=== PATIENT | female | born 1935 | race Caucasian/White ===

== ENCOUNTER 2017-10-11 15:56 | Inpatient (IN) | payer MEDICARE, OTHER, SELFPAY ==
[2017-10-11 16:21] VITALS: BP 129/67; PULSE 73; RESP 22; TEMP 37.3; O2SAT 94; BMI 28.3
--- NOTE | 2017-10-11 16:29 | XR_ITS ---
XR chest portable HISTORY: Cough and weakness ITS.REASON: SOA AND NON-PROD COUGH ORDERING PHYSICIAN: Juliano Judd MD PATIENT AGE: 82 years COMPARISON: 02/19/2014 FINDINGS: Cardiac pacemaker device present. Study is obtained in a lordotic position. Pulmonary vessels are slightly prominent and there is mild cardiomegaly. There is consolidation in the left upper and left lower lobe consistent with pneumonia. Left upper lobe consolidation is somewhat rounded therefore, follow-up is recommended. No acute bony anomalies. IMPRESSION: Left upper and left lower lobe pneumonia. The left upper lobe pneumonia has a somewhat rounded configuration. Follow-up is recommended to exclude underlying mass. CT of the chest may be of further value
[2017-10-11 16:31] VITALS: PULSE 73; PULSE 85; O2SAT 95
--- NOTE | 2017-10-11 16:47 | HMH.EDGENADL ---
ED Disposition Clinical Impression: Dehydration Bilateral pneumonia Qualifiers: Pneumonia type: due to unspecified organism Lung location: unspecified part of lung Qualified Code(s): J18.9 - Pneumonia, unspecified organism Disposition: Admitted As Inpatient Condition on Discharge: Fair Time of Disposition: 20:08 - Critical Care Critical Care Time: No Attestation: On , the high probability of a clinically significant, sudden or life threatening deterioration of the following system(s) required my full and direct attention, intervention and personal management. The time I documented below is in addition to time spent performing reported procedures but includes the following listed in this critical care notation. Medical Decision Making - Medical Records Medical records reviewed: Yes: I reviewed the patient's medical records. Vital Signs: 10/11/17 16:21 10/11/17 16:31 Temperature 99.2 F Temperature Source Oral Pulse Rate 73 Pulse Rate [Right Brachial] 73 Respiratory Rate 22 Blood Pressure [Right Arm] 129/67 Blood Pressure Mean [Right Arm] 87 Blood Pressure Source [Right Arm] Automatic Cuff Blood Pressure Position [Right Arm] Sitting 02 Sat by Pulse Oximetry 94 L 95 Oxygen Delivery Method Nasal Cannula Nasal Cannula Oxygen Flow Rate (LPM) 4 4 - Lab Data Lab results reviewed: Yes: I reviewed the patient's lab results. Lab Results 10/11/17 16:40: WBC 8.0, RBC 4.17 L, Hgb 12.5, Hct 38.3, MCV 91.9, MCH 30.0, MCHC 32.7, RDW 13.3, Plt Count 129 L, MPV 8.7, Neut % (Auto) 78.8, Lymph % (Auto) 11.8, Price % (Auto) 8.8, Eos % (Auto) 0.3, Baso % (Auto) 0.3, Neut # (Auto) 6.3, Lymph # (Auto) 0.9, Price # (Auto) 0.7, Eos # (Auto) 0.0, Baso # (Auto) 0.0 10/11/17 16:40: Sodium 140, Potassium 3.7, Chloride 102, Carbon Dioxide 26, Anion Gap 15.7 H, BUN 25 H, Creatinine 1.52 H, Estimated Creat Clear 33, Estimated GFR 33 L, Est GFR ( Amer) 40 L, Glucose 157 H, Calcium 8.7, Total Bilirubin 0.7, AST 30, ALT 31, Alkaline Phosphatase 44 L, Total Protein 6.9, Albumin 3.1 L, Globulin 3.8 H, Albumin/Globulin Ratio 0.8 L 10/11/17 16:40: Lactic Acid 3.5 H 10/11/17 17:50: Group A Strep Rapid Negative Result diagrams: 10/11/17 16:40 10/11/17 16:40 Orders (Tests/Meds): ED MEDICATIONS Generic Name Dose Route Start Last Admin Trade Name Freq PRN Reason Stop Dose Admin Levofloxacin/Dextrose 500 mg in 100 mls @ 100 mls/hr 10/11/17 19:59 Levaquin 500mg/100ml Premix IV 10/11/17 20:58 PREOP ONE Protocol Discontinued Medications Generic Name Dose Route Start Last Admin Trade Name Freq PRN Reason Stop Dose Admin Albuterol/Ipratropium 3 ml 10/11/17 16:28 10/11/17 16:29 Duoneb 3ml Neb IH 10/11/17 16:29 3 ml ONCE ONE Administration Aztreonam 1 gm/ Sodium 50 mls @ 100 mls/hr 10/11/17 19:58 Chloride IV 10/11/17 19:59 ONCE ONE Protocol ORDERS Category Date Time Status Chest XR -- portable [XR chest portable] Stat Exams 10/11/17 16:29 Taken Blood Culture Stat Micro 10/11/17 16:40 Received Sputum Culture & Gram Stain Stat Micro 10/11/17 16:45 Results Strep Screen Confirmation Stat Micro 10/11/17 17:50 Received - Radiology Data #1 Image(s): Chest Image Reviewed: Yes I reviewed the patient's radiology image Preliminary Findings: Abnormal (with bilateral infiltrates) - Ted Inquiry Pt receiving controlled substance: No Ted was queried for this patient: No General Adult HPI - General Chief complaint: Nausea/Vomiting/Diarrhea Stated complaint: Fever,SOA, Vomiting Time Seen by Provider: 10/11/17 16:47 Mode of Arrival: Wheelchair Limitations: No Limitations Description of Symptoms (Recalled from ER Triage Doc. by RN): Pt c/o SOA, N/V/D - History of Present Illness HPI narrative: Pt comes to the ED with complaints of fever, SOA, Vomiting and trouble breathing with severe cough since . Has been to Dr. Graves's office twi
--- NOTE | 2017-10-11 16:53 | ED_ITS ---
ED Disposition Clinical Impression: Dehydration Bilateral pneumonia Qualifiers: Pneumonia type: due to unspecified organism Lung location: unspecified part of lung Qualified Code(s): J18.9 - Pneumonia, unspecified organism Disposition: Admitted As Inpatient Condition on Discharge: Fair Time of Disposition: 20:08 - Critical Care Critical Care Time: No Attestation: On , the high probability of a clinically significant, sudden or life threatening deterioration of the following system(s) required my full and direct attention, intervention and personal management. The time I documented below is in addition to time spent performing reported procedures but includes the following listed in this critical care notation. Medical Decision Making - Medical Records Medical records reviewed: Yes: I reviewed the patient's medical records. Vital Signs: 10/11/17 16:21 10/11/17 16:31 Temperature 99.2 F Temperature Source Oral Pulse Rate 73 Pulse Rate [Right Brachial] 73 Respiratory Rate 22 Blood Pressure [Right Arm] 129/67 Blood Pressure Mean [Right Arm] 87 Blood Pressure Source [Right Arm] Automatic Cuff Blood Pressure Position [Right Arm] Sitting 02 Sat by Pulse Oximetry 94 L 95 Oxygen Delivery Method Nasal Cannula Nasal Cannula Oxygen Flow Rate (LPM) 4 4 - Lab Data Lab results reviewed: Yes: I reviewed the patient's lab results. Lab Results 10/11/17 16:40: WBC 8.0, RBC 4.17 L, Hgb 12.5, Hct 38.3, MCV 91.9, MCH 30.0, MCHC 32.7, RDW 13.3, Plt Count 129 L, MPV 8.7, Neut % (Auto) 78.8, Lymph % (Auto ) 11.8, [place] % (Auto) 8.8, Eos % (Auto) 0.3, Baso % (Auto) 0.3, Neut # (Auto) 6.3, Lymph # (Auto) 0.9, [place] # (Auto) 0.7, Eos # (Auto) 0.0, Baso # (Auto) 0.0 10/11/17 16:40: Sodium 140, Potassium 3.7, Chloride 102, Carbon Dioxide 26, Anion Gap 15.7 H, BUN 25 H, Creatinine 1.52 H, Estimated Creat Clear 33, Estimated GFR 33 L, Est GFR ( Amer) 40 L, Glucose 157 H, Calcium 8.7, Total Bilirubin 0.7, AST 30, ALT 31, Alkaline Phosphatase 44 L, Total Protein 6.9, Albumin 3.1 L, Globulin 3.8 H, Albumin/Globulin Ratio 0.8 L 10/11/17 16:40: Lactic Acid 3.5 H 10/11/17 17:50: Group A Strep Rapid Negative Result diagrams: 10/11/17 16:40 10/11/17 16:40 Orders (Tests/Meds): ED MEDICATIONS Generic Name Dose Route Start Last Admin Trade Name Freq PRN Reason Stop Dose Admin Levofloxacin/Dextrose 500 mg in 100 mls @ 100 mls/hr 10/11/17 19:59 Levaquin 500mg/100ml Premix IV 10/11/17 20:58 PREOP ONE Protocol Discontinued Medications Generic Name Dose Route Start Last Admin Trade Name Freq PRN Reason Stop Dose Admin Albuterol/Ipratropium 3 ml 10/11/17 16:28 10/11/17 16:29 Duoneb 3ml Neb IH 10/11/17 16:29 3 ml ONCE ONE Administration Aztreonam 1 gm/ Sodium 50 mls @ 100 mls/hr 10/11/17 19:58 Chloride IV 10/11/17 19:59 ONCE ONE Protocol ORDERS Category Date Time Status Chest XR -- portable [XR chest portable] Stat Exams 10/11/17 16:29 Taken Blood Culture Stat Micro 10/11/17 16:40 Received Sputum Culture & Gram Stain Stat Micro 10/11/17 16:45 Results Strep Screen Confirmation Stat Micro 10/11/17 17:50 Received - Radiology Data #1 Image(s): Chest Image Jewels
[2017-10-11 17:13] LABS: Alanine Aminotransferase 31 U/L (12-78); Albumin Level 3.1 gm/dL (3.4-5.0); Albumin/Globulin Ratio 0.8 (1.1-1.8); Alkaline Phosphatase 44 U/L (46-116); Anion Gap 15.7 mEq/L (5-15); Aspartate Amino Transferase 30 U/L (15-37); Bilirubin,Total 0.7 mg/dL (0.2-1.0); Blood Urea Nitrogen 25 mg/dL (7-18); Calcium 8.7 mg/dL (8.5-10.1); Carbon Dioxide 26 mmol/L (21.0-32.0); Chloride 102 mmol/L (98-107); Creatinine Clearance Estimated 33 mL/min (0-300); Creatinine,Serum 1.52 mg/dL (0.55-1.02); Estimated Glomerular Filt Rate 33 ml/min (>60); GFR (African American) 40 ML/MIN (>60); Globulin 3.8 gm/dl (1.3-3.2); Glucose 157 mg/dL (74-106); Potassium 3.7 mmoL/L (3.5-5.1); Sodium 140 mmol/L (136-145); Total Protein,Serum 6.9 gm/dL (6.4-8.2)
[2017-10-11 17:25] LABS: Lactic Acid 3.5 mmol/L (0.4-2.0)
[2017-10-11 18:07] LABS: Strep Scrn Group A (Rapid) Negative (Negative)
[2017-10-11 18:14] LABS: Basophils % 0.3 % (0.1-2.0); Eosinophils % 0.3 % (0.1-12.0); Hematocrit 38.3 % (37.0-47.0); Hemoglobin 12.5 g/dL (12.2-16.2); Lymphocytes # 0.9 K/mm3 (0.7-4.5); Lymphocytes % 11.8 K/mm3 (10-50); Mean Corpuscular HGB Conc 32.7 g/dL (31.8-35.4); Mean Corpuscular Volume 91.9 fl (81-99); Mean Platelet Volume 8.7 fl (7.4-10.4); Monocytes # 0.7 K/mm3 (0.1-1.0); Monocytes % 8.8 % (1.7-9.3); Neutrophils # 6.3 K/mm3 (1.8-7.8); Neutrophils % 78.8 % (37.0-80.0); Platelet Count 129 K/mm3 (142-424); Red Blood Count 4.17 M/mm3 (4.20-5.40); Red Cell Distribution Width 13.3 % (11.5-17.5)
[2017-10-11 20:00] VITALS: O2SAT 93
[2017-10-11 20:25] VITALS: BP 137/89; PULSE 66; RESP 20; O2SAT 94
[2017-10-11 20:53] LABS: Reflex Lactic Add Lactic Reflex
[2017-10-11 21:17] VITALS: BP 140/81; PULSE 75; RESP 20; TEMP 36.8; O2SAT 91
[2017-10-11 21:30] VITALS: BMI 28.8
[2017-10-11 21:57] LABS: Lactic Acid Follow Up (RFLX 1) 2.5 (0.4-2.0)
[2017-10-11 21:58] LABS: Reflex Lactic (2 hrs) Add Lactic Reflex
[2017-10-12] VITALS (11 sets, daily range): BP systolic 96–125; BP diastolic 51–81; PULSE 65–90; RESP 20–30; TEMP 36.5–38.2; O2SAT 82–92
[2017-10-12 00:06] LABS: Lactic Acid Follow up (RFLX 2) 2.2 (0.4-2.0)
--- NOTE | 2017-10-12 03:50 | PC.NURSE ---
PT RESTING AT THIS TIME. SHE IS CURRENTLY ON 3L O2 NC. LUNGS WERE NOTED TO HAVE RHONCHI AND WHEEZING T/O. PT STATES THAT SHE HAS HAD BROWNISH YELLOW SPUTUM WITH SOME BLOOD. THIS HAS NOT BEEN OBSERVED. MEDICATIONS ADMINISTERED PER MAR. NO OTHER COCNERNS AT THIS TIME. WILL CONTINUE TO MONITOR.
[2017-10-12 06:54] LABS: Basophils % 0.3 % (0.1-2.0); Eosinophils % 0.1 % (0.1-12.0); Hematocrit 38.5 % (37.0-47.0); Hemoglobin 12.5 g/dL (12.2-16.2); Lymphocytes # 0.9 K/mm3 (0.7-4.5); Lymphocytes % 9.4 K/mm3 (10-50); Mean Corpuscular HGB Conc 32.5 g/dL (31.8-35.4); Mean Corpuscular Hemoglobin 29.8 pg (27.0-31.2); Mean Corpuscular Volume 91.7 fl (81-99); Mean Platelet Volume 8.7 fl (7.4-10.4); Monocytes # 0.6 K/mm3 (0.1-1.0); Monocytes % 6.2 % (1.7-9.3); Neutrophils # 7.9 K/mm3 (1.8-7.8); Platelet Count 111 K/mm3 (142-424); Red Cell Distribution Width 13.5 % (11.5-17.5); White Blood Count 9.4 K/mm3 (4.8-10.8)
[2017-10-12 07:02] LABS: Anion Gap 14.5 mEq/L (5-15); Blood Urea Nitrogen 22 mg/dL (7-18); Carbon Dioxide 25 mmol/L (21.0-32.0); Chloride 101 mmol/L (98-107); Creatinine Clearance Estimated 40 mL/min (0-300); Creatinine,Serum 1.28 mg/dL (0.55-1.02); Estimated Glomerular Filt Rate 40 ml/min (>60); GFR (African American) 48 ML/MIN (>60); Glucose 131 mg/dL (74-106); Potassium 3.5 mmoL/L (3.5-5.1); Sodium 137 mmol/L (136-145)
--- NOTE | 2017-10-12 07:25 | PC.NURSE ---
REPORT GIVEN TO Az MENENDEZ W/C
--- NOTE | 2017-10-12 07:32 | HMH.PHAVTE ---
[facility] Pharmacy VTE Monitoring - Patient Demographics Admission date: 10/11/17 Report Date: 10/12/17 Time: 07:32 Allergies/Adverse Reactions: Patient Allergies Azithromycin Allergy (Unknown, Uncoded 09/04/17 14:41) From Penicillin V Potassium Allergy (Unknown, Uncoded 09/04/17 14:41) Penicillin Allergy (Unknown, Uncoded 09/04/17 14:41) Height: 1.6 m Weight: 73.709 kg Patient Problems: Current Active Problems Bilateral pneumonia (Acute) Dehydration (Acute) - VTE Risk Labs: VTE Related Lab Results Hgb 12.5 g/dL (12.2-16.2) 10/12/17 06:15 Hct 38.5 % (37.0-47.0) 10/12/17 06:15 Plt Count 111 K/mm3 (142-424) L 10/12/17 06:15 BUN 22 mg/dL (7-18) H 10/12/17 06:15 Creatinine 1.28 mg/dL (0.55-1.02) H 10/12/17 06:15 Estimated Creat Clear 40 mL/min (0-300) 10/12/17 06:15 Was VTE Risk Assessment Performed: No VTE Risk Level: Low Risk Clinical Trial Participant: No - Prophylaxis VTE Prophylaxis Ordered?: Yes Types of VTE Prophylaxis: TEDS Knee High
--- NOTE | 2017-10-12 07:50 | PC.NURSE ---
REPORT HANDOFF TO Keaton CHERRY
--- NOTE | 2017-10-12 08:42 | HMH.HP ---
*Admission Date: 10/11/17 *Chief complaint: SOA, cough *History of present illness: Ms. Alan is an 82-year-old female who has been seen at [facility] numerous times in [place] for recurrent cough, congestion, and shortness of air. Most recent visit was on 10/09/17. She saw Nenita in the office with cough, fever, shortness of breath, and chest congestion. Her white blood cell count was normal. She was diagnosed with an acute URI and bronchitis. Oxygen was 95% on room air. She was started on Levaquin, a steroid Dosepak, Mucinex DM, Phenergan DM cough syrup, and she was given a shot of dexamethasone. She had nebulizers at home she had been using as well. Patient states she continued to get worse. Her shortness of breath increased and she presented to the emergency room. She was found to have a pneumonia and was admitted for further evaluation and treatment. [facility] History Medical History: Reports:: Atrial Fibrillation, Cerebrovascular Accident (right side), Hyperlipidemia, Hypertension Denies:: Cancer, Diabetes Mellitus Type 1, Diabetes Mellitus Type 2, MRSA Other Medical History: Reports: Arthritis, Hypothyroidism, Thyroid Disease Other Surgeries: Yes: Hysterectomy-Total, Pacemaker, Other (Cholecystectomy) Amputation: No Fractures: No - *Social History Educational Level: Completed High School Smoking Status: Never smoker Alcohol Intake: never Occupational Status: employed Housing: house - Psychiatric History Expresses thoughts of harming self/others: None Suicide Plan Description: No Plan *Family Hx:: Cancer, Heart Attack, Stroke Review of Systems - Constitutional Reports chills, Reports fever(s), Reports weakness - Eyes Denies blurry vision, Denies double vision - ENT Reports nasal congestion, Reports sore throat - *Cardiovascular Reports chest pain (tightness), Denies leg swelling - *Respiratory Reports chest congestion, Reports cough, Reports shortness of breath, Reports wheezing - *Gastrointestinal Reports loose stools, Reports nausea, Reports vomiting - *Genitourinary Denies difficulty urinating, Denies painful urination - *Musculoskeletal Reports back pain - *Neurologic Reports dizziness, Denies headache(s) Meds Home Medications Medication Instructions Recorded Confirmed Type Amlodipine Besylate [Norvasc 5mg 5 mg PO DAILY 10/11/17 10/12/17 History tablet] Levothyroxine Sodium 200 mcg PO DAILY 10/11/17 10/12/17 History [Levothyroxine 200mcg (0.2mg) Tab] Losartan/Hydrochlorothiazide 0.5 tab PO DAILY 10/11/17 10/12/17 History [Hyzaar 100-25 Tablet] levoFLOXacin [Levaquin 500mg 500 mg PO DAILY 10/11/17 10/12/17 History tab] Aspirin [Aspir-Low] 81 mg PO DAILY 10/12/17 10/12/17 History Carvedilol [Carvedilol 12.5mg Tab] 12.5 mg PO BID 10/12/17 10/12/17 History Cholecalciferol (Vitamin D3) 2,000 unit PO DAILY 10/12/17 10/12/17 History [Vitamin D3 1,000 Unit Tab] Simvastatin [Simvastatin] 20 mg PO HS 10/12/17 10/12/17 History methylPREDNISolone [Medrol] 4 mg PO DIRECTED 10/12/17 10/12/17 History Allergies Allergy/AdvReac Type Severity Reaction Status Date / Time Azithromycin Allergy Unknown Uncoded 09/04/17 14:41 From Penicillin V Potassium Allergy Unknown Uncoded 09/04/17 14:41 Penicillin Allergy Unknown Uncoded 09/04/17 14:41 Exam Vital signs and Labs for Last 24 Hours: Temp Pulse Resp BP Pulse Ox 98.5 F 87 22 125/81 90 L 10/12/17 07:30 10/12/17 07:30 10/12/17 07:30 10/12/17 07:30 10/12/17 07:30 Laboratory Results - last 24 hr 10/11/17 21:20: Lactic Acid Fup @ 4Hr 2.5 H 10/11/17 22:30: Lactic Acid Fup @ 2Hr 2.2 H 10/12/17 06:15: WBC 9.4, RBC 4.20, Hgb 12.5, Hct 38.5, MCV 91.7, MCH 29.8, MCHC 32.5, RDW 13.5, Plt Count 111 L, MPV 8.7, Neut % (Auto) 84.0 H, Lymph % (Auto) 9.4 L, [place] % (Auto) 6.2, Eos % (Auto) 0.1, Baso % (Auto) 0.3, Neut # (Auto) 7.9 H, Lymph # (Auto) 0.9, [place] # (Auto) 0.6, Eos # (Auto) 0.0, Baso # (Auto)
--- NOTE | 2017-10-12 08:46 | P.HP_ITS ---
*Admission Date: 10/11/17 *Chief complaint: SOA, cough *History of present illness: Ms. Alan is an 82-year-old female who has been seen at [facility] numerous times in [place] for recurrent cough, congestion, and shortness of air. Most recent visit was on 10/09/17. She saw Nenita in the office with cough, fever, shortness of breath, and chest congestion. Her white blood cell count was normal. She was diagnosed with an acute URI and bronchitis. Oxygen was 95% on room air. She was started on Levaquin, a steroid Dosepak, Mucinex DM, Phenergan DM cough syrup, and she was given a shot of dexamethasone. She had nebulizers at home she had been using as well. Patient states she continued to get worse. Her shortness of breath increased and she presented to the emergency room. She was found to have a pneumonia and was admitted for further evaluation and treatment. [facility] History Medical History: Reports:: Atrial Fibrillation, Cerebrovascular Accident (right side), Hyperlipidemia, Hypertension Denies:: Cancer, Diabetes Mellitus Type 1, Diabetes Mellitus Type 2, MRSA Other Medical History: Reports: Arthritis, Hypothyroidism, Thyroid Disease Other Surgeries: Yes: Hysterectomy-Total, Pacemaker, Other (Cholecystectomy) Amputation: No Fractures: No - *Social History Educational Level: Completed High School Smoking Status: Never smoker Alcohol Intake: never Occupational Status: employed Housing: house - Psychiatric History Expresses thoughts of harming self/others: None Suicide Plan Description: No Plan *Family Hx:: Cancer, Heart Attack, Stroke Review of Systems - Constitutional Reports chills, Reports fever(s), Reports weakness - Eyes Denies blurry vision, Denies double vision - ENT Reports nasal congestion, Reports sore throat - *Cardiovascular Reports chest pain (tightness), Denies leg swelling - *Respiratory Reports chest congestion, Reports cough, Reports shortness of breath, Reports wheezing - *Gastrointestinal Reports loose stools, Reports nausea, Reports vomiting - *Genitourinary Denies difficulty urinating, Denies painful urination - *Musculoskeletal Reports back pain - *Neurologic Reports dizziness, Denies headache(s) Meds Home Medications Medication Instructions Recorded Confirmed Type Amlodipine Besylate [Norvasc 5mg 5 mg PO DAILY 10/11/17 10/12/17 History tablet] Levothyroxine Sodium 200 mcg PO DAILY 10/11/17 10/12/17 History [Levothyroxine 200mcg (0.2mg) Tab] Losartan/Hydrochlorothiazide 0.5 tab PO DAILY 10/11/17 10/12/17 History [Hyzaar 100-25 Tablet] levoFLOXacin [Levaquin 500mg 500 mg PO DAILY 10/11/17 10/12/17 History tab] Aspirin [Aspir-Low] 81 mg PO DAILY 10/12/17 10/12/17 History Carvedilol [Carvedilol 12.5mg Tab] 12.5 mg PO BID 10/12/17 10/12/17 History Cholecalciferol (Vitamin D3) 2,000 unit PO DAILY 10/12/17 10/12/17 History [Vitamin D3 1,000 Unit Tab] Simvastatin [Simvastatin] 20 mg PO HS 10/12/17 10/12/17 History methylPREDNISolone [Medrol] 4 mg PO DIRECTED 10/12/17 10/12/17 History Allergies Allergy/AdvReac Type Severity Reaction Status Date / Time Azithromycin Allergy Unknown Uncoded 09/04/17 14:41 From Penicillin V Potassium Allergy Unknown Uncoded 09/04/17 14:41 Penicillin Allergy Unknown Uncoded 09/04/17 14:41 Exam Vital signs and Labs for Last 24 Hours: Temp Pulse Resp BP Pulse Ox
--- NOTE | 2017-10-12 09:00 | CT_ITS ---
CT chest wo con HISTORY: Cough , Weakness, abnormal chest x-ray, shortness of air ITS.REASON: abnormal CXR ORDERING PHYSICIAN: Abbie Graves MD PATIENT AGE: 82 years TECHNIQUE: Axial images obtained. Sagittal and coronal reformatted images are also generated and reviewed. CONTRAST: None COMPARISON: Radiograph of 10/11/2017 FINDINGS: There is cardiomegaly. Mildly enlarged lymph node is present in the mediastinum anterior to the right mainstem bronchus measuring 2.3 x 1.8 cm. Other smaller nodes are present in the mediastinum and bee. There is coronary artery calcification and artifact from the pacemaker. There is dense consolidation within the left upper lobe anteriorly, medially, and posteriorly with some sparing laterally with air bronchograms consistent with pneumonia. This was the area of interest as noted on the previous chest x-ray however this does not appear represent a mass. No effusions. Micronodular densities are present in the right upper lobe laterally with a tree-in-bud appearance which may be due to underlying bronchiolitis. There are atelectatic changes in the lung bases with some minimal infiltrate in the right lung base posteriorly. Upper abdominal images shows moderate stranding of the perinephric renal fat on both sides nonspecific. This is greater on the right and could be related to underlying inflammatory change. The right kidney is not included on the exam. There are degenerative changes in the thoracic spine. IMPRESSION: 1. Extensive consolidation in the left upper lobe consistent with pneumonia. No obvious mass lesion. 2. Patchy infiltrate in the right lung base. 3. Cardiomegaly with coronary artery disease and mild mediastinal adenopathy 4. Prominent stranding of the perinephric renal fat right greater than left
--- NOTE | 2017-10-12 17:34 | PC.NURSE ---
Patient continuing to have difficulty breathing. has a wet cough and o2 sats are in the low to mid 80's. Spoke with Lois with respiratory and requested for her to come re-evaluate her. Upon respiratory's assessment patient was deep suctioned and put on 50% venti mask. 02 sats increased to 90%. Spoke with Dr. Segundo, who is manager concrete for Dr. Graves, regarding patient's change in status. New orders were rec'd to discontinue IV fluids and give a one time dose of Lasix 40mg IV. Patient also rec'd a neb treatment from respiratory. Patient remains alert and oriented x3 and has no complaint of pain or discomfort. Patient also dislodged IV. New IV site placed in patient's right AC.
[2017-10-13] VITALS (17 sets, daily range): BP systolic 73–131; BP diastolic 42–80; PULSE 70–103; RESP 12–32; TEMP 36.8–37.6; O2SAT 75–98
--- NOTE | 2017-10-13 04:47 | XR_ITS ---
XR chest portable HISTORY: Pneumonia, cough ITS.REASON: low 02 sat ORDERING PHYSICIAN: bAbie Graves MD PATIENT AGE: 82 years COMPARISON: 10/11/2017 FINDINGS: Increasing consolidation is present in the left upper lobe. Opacification has developed in the right lower lung zone as well consistent with pneumonia and/or atelectatic change. There is cardiomegaly with bipolar pacer in place. IMPRESSION: Worsening left upper lobe pneumonia and interval development of right lower lobe atelectasis or infiltrate.
--- NOTE | 2017-10-13 05:17 | PC.NURSE ---
Approximately 0430, Rizwana Galdamez,SRNA in to do vitals, found pt with mask off and unresponsive, oxygen saturation 75%. Called Rapid Response Red with Dr Jay coming to floor. Hooked pt up to crash cart, manual bp, rectal temp, ekg, abg, bipap, cbc, cmp, bnp, cardiac enzymes, CXR. EKG - afib with premature ventricular or aberrantly conducted complexes, possible anterior infarct age undetermined ABG: Ph -7.08, C02 - 86, 02 - 107.2, HC03 - 25.5 Initial BP 77/43 Manual BP - 130/80 HR 103 Resp: 12 Rectal Temp - 99.6 F/c inserted Pt gradually began to respond by opening her eyes and then began answering questions, not correctly but speaking. Pt transitioned into baseline becoming alert to person, place but month voiced was October. Pt could tell me how many children, grandchildren, and great grandchildren she had as she had told me previously in earlier conversation. Pt appeared to recover. In earlier shift approximately 0130, in to check on pt - found her sitting on the side of the bed with her mask off lying on the bed. She voiced she had just taken it off. Replaced mask, oxygen saturation was 75% at that time. Discussed with the patient the importance of leaving the mask on, pt voiced then she would leave it on. Many checks on pt this shift with encouragement to participate in POC. Asked her if she wanted me to call her family, She replied no, I am fine. Phoned Dr Segundo at [phone] to report incident, order to continue monitoring and leave pt on bipap. Pt is currently resting in bed with bipap in place with saturation reading 97%. Pt placed on continuous pulse ox, will continue to monitor.
[2017-10-13 05:29] LABS: Basophils % 0.3 % (0.1-2.0); Eosinophils # 0.1 K/mm3 (0.0-0.4); Eosinophils % 0.9 % (0.1-12.0); Hematocrit 39.2 % (37.0-47.0); Hemoglobin 12.4 g/dL (12.2-16.2); Lymphocytes # 0.8 K/mm3 (0.7-4.5); Lymphocytes % 7.2 K/mm3 (10-50); Mean Corpuscular HGB Conc 31.7 g/dL (31.8-35.4); Mean Corpuscular Hemoglobin 29.7 pg (27.0-31.2); Mean Corpuscular Volume 93.6 fl (81-99); Mean Platelet Volume 8.8 fl (7.4-10.4); Monocytes # 0.6 K/mm3 (0.1-1.0); Monocytes % 4.9 % (1.7-9.3); Neutrophils # 9.9 K/mm3 (1.8-7.8); Neutrophils % 86.6 % (37.0-80.0); Platelet Count 109 K/mm3 (142-424); Red Blood Count 4.19 M/mm3 (4.20-5.40); Red Cell Distribution Width 13.3 % (11.5-17.5); White Blood Count 11.4 K/mm3 (4.8-10.8)
[2017-10-13 05:32] LABS: MANUAL DIFFERENTIAL MANUAL DIFFERENTIAL (MANUAL DIFF)
[2017-10-13 05:40] LABS: Alanine Aminotransferase 35 U/L (12-78); Albumin Level 2.7 gm/dL (3.4-5.0); Albumin/Globulin Ratio 0.7 (1.1-1.8); Alkaline Phosphatase 39 U/L (46-116); Anion Gap 12.8 mEq/L (5-15); Aspartate Amino Transferase 46 U/L (15-37); Bilirubin,Total 0.6 mg/dL (0.2-1.0); Blood Urea Nitrogen 25 mg/dL (7-18); Calcium 8.7 mg/dL (8.5-10.1); Carbon Dioxide 29 mmol/L (21.0-32.0); Chloride 98 mmol/L (98-107); Creatinine Clearance Estimated 36 mL/min (0-300); Creatinine,Serum 1.43 mg/dL (0.55-1.02); Estimated Glomerular Filt Rate 35 ml/min (>60); GFR (African American) 43 ML/MIN (>60); Globulin 4.1 gm/dl (1.3-3.2); Potassium 3.8 mmoL/L (3.5-5.1); Sodium 136 mmol/L (136-145); Total Protein,Serum 6.8 gm/dL (6.4-8.2)
[2017-10-13 05:44] LABS: Glucose 187 mg/dL (74-106)
--- NOTE | 2017-10-13 05:50 | PC.NURSE ---
Bipap settings 28/02, rate 22, FI02 - 80% per Rufina, RT
[2017-10-13 05:55] LABS: CKMB Relative Index 2.4 U/L (0-4.0); Creatine Kinase 238 U/L (26-192); Creatine Kinase MB 5.6 mg/ml (0.0-3.6)
--- NOTE | 2017-10-13 05:58 | PC.NURSE ---
UPON ENTRY INTO ROOM FOUND PATIENT UNRESPONSIVE TO STERNUM RUBS. ALERTED TO NURSE OUTSIDE OF ROOM FOR HELP. RAPID RESPONSE CALLED
[2017-10-13 06:12] LABS: Hypochromasia 1+; Lymphocytes % 9 % (10-50); Monocytes % 1 % (2-9); Neutrophils % 71 % (42-76); Platelet Estimate Slight Decrease; Rouleaux 1+; Total Cells Counted 100
[2017-10-13 06:13] LABS: Polychromasia 1+
--- NOTE | 2017-10-13 08:58 | HMH.ACPN2 ---
Internal Medicine - PN: Subj *Date: 10/13/17 *Time: 08:58 Interval history: Events of overnight reviewed. Patient became hypoxic and was placed on a Venti mask and given a dose of IV Lasix. She removed the mask several times and subsequently desaturated into the 70's. a rapid response was called and the ER physician saw patient. She was placed on BiPAP and had an ABG which revealed a pH of 7.08, pCO2 of 86, and pO2 107 while on 100% NRB. CXR showed worsening pneumonia. Patient stabilized after starting BiPAP. She will open her eyes and will respond to voice. Exam Vital signs and Labs for Last 24 Hours: Temp Pulse Resp BP Pulse Ox 99.6 F 72 22 113/71 93 L 10/13/17 04:30 10/13/17 07:51 10/13/17 07:51 10/13/17 07:51 10/13/17 07:51 Laboratory Results - last 24 hr 10/13/17 05:10: WBC 11.4 H, RBC 4.19 L, Hgb 12.4, Hct 39.2, MCV 93.6, MCH 29.7, MCHC 31.7 L, RDW 13.3, Plt Count 109 L, MPV 8.8, Neut % (Auto) 86.6 H, Lymph % (Auto) 7.2 L, [place] % (Auto) 4.9, Eos % (Auto) 0.9, Baso % (Auto) 0.3, Neut # (Auto) 9.9 H, Lymph # (Auto) 0.8, [place] # (Auto) 0.6, Eos # (Auto) 0.1, Baso # (Auto) 0.0, Total Counted 100, Neutrophils % (Manual) 71, Band Neutrophils % 19.0 H, Lymphocytes % (Manual) 9 L, Monocytes % (Manual) 1 L, Platelet Estimate Slight decrease, Polychromasia 1+, Hypochromasia 1+, Rouleaux 1+ 10/13/17 05:10: Sodium 136, Potassium 3.8, Chloride 98, Carbon Dioxide 29, Anion Gap 12.8, BUN 25 H, Creatinine 1.43 H, Estimated Creat Clear 36, Estimated GFR 35 L, Est GFR ( Amer) 43 L, Glucose 187 H D, Calcium 8.7, Total Bilirubin 0.6, AST 46 H D, ALT 35, Alkaline Phosphatase 39 L, Total Protein 6.8, Albumin 2.7 L, Globulin 4.1 H, Albumin/Globulin Ratio 0.7 L 10/13/17 05:10: Total Creatine Kinase 238 H, CK-MB (CK-2) 5.6 H, CK-MB (CK-2) Rel Index 2.4, Troponin I 0.20 H 10/13/17 05:10: B-Natriuretic Peptide 1290 H Vital Signs Temp Pulse Pulse Resp BP Pulse Ox 10/13/17 07:51 72 22 113/71 93 L 10/13/17 07:10 82 98 10/13/17 05:10 82 30 H 130/80 97 10/13/17 04:30 99.6 F 103 H 12 73/42 75 L 10/13/17 00:00 99.1 F 83 32 H 116/71 83 L 10/12/17 22:48 84 90 L 10/12/17 20:00 98.1 F 82 20 108/54 89 L 10/12/17 19:54 90 L 10/12/17 16:39 78 82 L 10/12/17 16:30 98.2 F 90 30 H 119/65 90 L 10/12/17 11:37 100.8 F H 65 20 96/51 90 L 10/12/17 11:27 72 Intake and Output 10/12/17 10/13/17 10/13/17 19:59 03:59 11:59 Intake Total 450 / 450 Output Total 1375 / 1375 Balance 450 / 450 -1375 / -1375 Intake: Intake, Oral Amount 450 / 450 Output: Output, Urine Amount 1375 / 1375 Other: Number of Unmeasured Voids 3 Number of Bowel Movements 1 I & O for Last 24 hours: Intake & Output 10/10/17 10/11/17 10/12/17 10/13/17 11:59 11:59 11:59 11:59 Intake Total 831 / 831 450 / 450 Output Total 350 / 350 1375 / 1375 Balance 481 / 481 -925 / -925 Weight 162 lb 8 oz - Constitutional somnolent (awakens to voice, on BiPAP now) - *Routine Respiratory Exam Present: crackles (bibasilar, overall pretty good air movement) - *Routine Cardiovascular Exam Present: RRR Assessment and Plan (1) Bilateral pneumonia Current visit: Yes Status: Acute Qualifiers: Pneumonia type: due to unspecified organism Lung location: unspecified part of lung Qualified Code(s): J18.9 - Pneumonia, unspecified organism Category: Medical Code(s): J18.9 - Pneumonia, unspecified organism (2) Hypercapnic respiratory failure Current visit: Yes Status: Acute Qualifiers: Chronicity: acute Qualified Code(s): J96.02 - Acute respiratory failure with hypercapnia Category: Medical Code(s): J96.92 - Respiratory failure, unspecified with hypercapnia (3) Dehydration Current visit: Yes Status: Acute Category: Medical Code(s): E86.0 - Dehydration (4) Hypothyroid Current visit: Yes Status: Acute
--- NOTE | 2017-10-13 09:02 | P.PN_ITS ---
Internal Medicine - PN: Subj *Date: 10/13/17 *Time: 08:58 Interval history: Events of overnight reviewed. Patient became hypoxic and was placed on a Venti mask and given a dose of IV Lasix. She removed the mask several times and subsequently desaturated into the 70's. a rapid response was called and the ER physician saw patient. She was placed on BiPAP and had an ABG which revealed a pH of 7.08, pCO2 of 86, and pO2 107 while on 100% NRB. CXR showed worsening pneumonia. Patient stabilized after starting BiPAP. She will open her eyes and will respond to voice. Exam Vital signs and Labs for Last 24 Hours: Temp Pulse Resp BP Pulse Ox 99.6 F 72 22 113/71 93 L 10/13/17 04:30 10/13/17 07:51 10/13/17 07:51 10/13/17 07:51 10/13/17 07:51 Laboratory Results - last 24 hr 10/13/17 05:10: WBC 11.4 H, RBC 4.19 L, Hgb 12.4, Hct 39.2, MCV 93.6, MCH 29.7, MCHC 31.7 L, RDW 13.3, Plt Count 109 L, MPV 8.8, Neut % (Auto) 86.6 H, Lymph % ( Auto) 7.2 L, [place] % (Auto) 4.9, Eos % (Auto) 0.9, Baso % (Auto) 0.3, Neut # ( Auto) 9.9 H, Lymph # (Auto) 0.8, [place] # (Auto) 0.6, Eos # (Auto) 0.1, Baso # ( Auto) 0.0, Total Counted 100, Neutrophils % (Manual) 71, Band Neutrophils % 19.0 H, Lymphocytes % (Manual) 9 L, Monocytes % (Manual) 1 L, Platelet Estimate Slight decrease, Polychromasia 1+, Hypochromasia 1+, Rouleaux 1+ 10/13/17 05:10: Sodium 136, Potassium 3.8, Chloride 98, Carbon Dioxide 29, Anion Gap 12.8, BUN 25 H, Creatinine 1.43 H, Estimated Creat Clear 36, Estimated GFR 35 L, Est GFR ( Amer) 43 L, Glucose 187 H D, Calcium 8.7, Total Bilirubin 0.6, AST 46 H D, ALT 35, Alkaline Phosphatase 39 L, Total Protein 6.8, Albumin 2.7 L, Globulin 4.1 H, Albumin/Globulin Ratio 0.7 L 10/13/17 05:10: Total Creatine Kinase 238 H, CK-MB (CK-2) 5.6 H, CK-MB (CK-2) Rel Index 2.4, Troponin I 0.20 H 10/13/17 05:10: B-Natriuretic Peptide 1290 H Vital Signs Temp Pulse Pulse Resp BP Pulse Ox 10/13/17 07:51 72 22 113/71 93 L 10/13/17 07:10 82 98 10/13/17 05:10 82 30 H 130/80 97 10/13/17 04:30 99.6 F 103 H 12 73/42 75 L 10/13/17 00:00 99.1 F 83 32 H 116/71 83 L 10/12/17 22:48 84 90 L 10/12/17 20:00 98.1 F 82 20 108/54 89 L 10/12/17 19:54 90 L 10/12/17 16:39 78 82 L 10/12/17 16:30 98.2 F 90 30 H 119/65 90 L 10/12/17 11:37 100.8 F H 65 20 96/51 90 L 10/12/17 11:27 72 Intake and Output 10/12/17 10/13/17 10/13/17 19:59 03:59 11:59 Intake Total 450 / 450 Output Total 1375 / 1375 Balance 450 / 450 -1375 / -1375 Intake: Intake, Oral Amount 450 / 450 Output: Output, Urine Amount 1375 / 1375 Other: Number of Unmeasured Voids 3 Number of Bowel Movements 1 I & O for Last 24 hours: Intake & Output 10/10/17 10/11/17 10/12/17 10/13/17 11:59 11:59 11:59 11:59 Intake Total 831 / 831 450 / 450 Output Total 350 / 350 1375 / 1375 Balance 481 / 481 -925 / -925 Weight 162 lb 8 oz - Constitutional somnolent (awakens to voice, on BiPAP now) - *Routine Respiratory Exam Present: crackles (bibasilar, overall pretty good air movement) - *Routine Cardiovascular Exam Present: RRR Assessment and Plan (1) Bilateral pneumonia Current visit: Yes Status: Acute Qualifiers:
[2017-10-13 16:14] LABS: ABG Base Excess -4.8 mmol/L (-2.4-2.3); ABG HCO3 25.2 mmhg (22.0-26.0); ABG Oxygen Saturation 97 % (90-100); ABG PO2 107.2 mmhg (80-100); ABG TCO2 27.8 mmhg (23-27)
[2017-10-13 16:15] LABS: Allen's Test Non Applicable; Oxygen 100% %; Source Left Radial
[2017-10-13 16:17] LABS: ABG PH 7.08 mmol/L (7.35-7.45)
[2017-10-13 16:22] LABS: ABG Base Excess 2.5 mmol/L (-2.4-2.3); ABG HCO3 26.9 mmhg (22.0-26.0); ABG Oxygen Saturation 96 % (90-100); ABG PCO2 42.6 mmhg (35.0-45.0); ABG PH 7.42 mmol/L (7.35-7.45); ABG PO2 73.5 mmhg (80-100); ABG TCO2 28.3 mmhg (23-27); Allen's Test Acceptable; Oxygen 50 %; PEEP 14/6; Source Right Radial; Vent Rate 22
[2017-10-13 17:50] LABS: ABG HCO3 23.3 mmhg (22.0-26.0); ABG Oxygen Saturation 96 % (90-100); ABG PCO2 35.8 mmhg (35.0-45.0); ABG PH 7.43 mmol/L (7.35-7.45); ABG PO2 80.8 mmhg (80-100); ABG TCO2 24.4 mmhg (23-27)
[2017-10-13 17:51] LABS: Allen's Test Acceptable; Oxygen 50% %; PEEP 14/6; Pressure Support 8; Source Right Radial; Vent Rate 22
[2017-10-14] VITALS (27 sets, daily range): BP systolic 110–160; BP diastolic 61–81; PULSE 72–110; RESP 16–31; TEMP 36.4–37.3; O2SAT 90–98
--- NOTE | 2017-10-14 03:16 | PC.NURSE ---
pt has rested intervals this shift, pt is A&O to person and time but unaware of place, pt remains on BiPap, O2 sats dropped to low 80s, respiratory was notified and BiPap settings were adjusted, since the adjustment O2 sats have remained at 90 or above, scattered wheezing and rhonchi noted throughout lung oreilly, bowel sounds are active x4, wells is anchored and draining clear taina urine, vss, no acute distress noted at this time, call light in reach, safety measures in place, will continue to monitor.
[2017-10-14 07:18] LABS: Basophils % 0.2 % (0.1-2.0); Eosinophils % 0.1 % (0.1-12.0); Hemoglobin 12.4 g/dL (12.2-16.2); Lymphocytes # 0.5 K/mm3 (0.7-4.5); Lymphocytes % 3.3 K/mm3 (10-50); Mean Corpuscular HGB Conc 32.6 g/dL (31.8-35.4); Mean Corpuscular Hemoglobin 29.8 pg (27.0-31.2); Mean Corpuscular Volume 91.6 fl (81-99); Mean Platelet Volume 8.6 fl (7.4-10.4); Monocytes # 0.3 K/mm3 (0.1-1.0); Monocytes % 2.4 % (1.7-9.3); Neutrophils # 13.2 K/mm3 (1.8-7.8); Platelet Count 134 K/mm3 (142-424); Red Blood Count 4.15 M/mm3 (4.20-5.40); Red Cell Distribution Width 13.3 % (11.5-17.5)
[2017-10-14 07:21] LABS: MANUAL DIFFERENTIAL MANUAL DIFFERENTIAL (MANUAL DIFF)
[2017-10-14 07:34] LABS: Alanine Aminotransferase 40 U/L (12-78); Albumin Level 2.4 gm/dL (3.4-5.0); Albumin/Globulin Ratio 0.6 (1.1-1.8); Alkaline Phosphatase 47 U/L (46-116); Anion Gap 8.5 mEq/L (5-15); Aspartate Amino Transferase 42 U/L (15-37); Bilirubin,Total 0.8 mg/dL (0.2-1.0); Blood Urea Nitrogen 32 mg/dL (7-18); CKMB Relative Index 3.9 U/L (0-4.0); Calcium 9.4 mg/dL (8.5-10.1); Carbon Dioxide 36 mmol/L (21.0-32.0); Chloride 100 mmol/L (98-107); Creatine Kinase MB 4.4 mg/ml (0.0-3.6); Creatinine Clearance Estimated 48 mL/min (0-300); Creatinine,Serum 1.08 mg/dL (0.55-1.02); Estimated Glomerular Filt Rate 49 ml/min (>60); GFR (African American) 59 ML/MIN (>60); Globulin 4.2 gm/dl (1.3-3.2); Glucose 212 mg/dL (74-106); Potassium 3.5 mmoL/L (3.5-5.1); Sodium 141 mmol/L (136-145); Total Protein,Serum 6.6 gm/dL (6.4-8.2); Troponin I 0.08 ng/ml (0.00-0.06)
[2017-10-14 07:35] LABS: Creatine Kinase 112 U/L (26-192)
[2017-10-14 08:38] LABS: Lymphocytes % 8 % (10-50); Monocytes % 3 % (2-9); Neutrophils % 77 % (42-76); Platelet Estimate Normal; RBC Morphology Normal; Total Cells Counted 100
--- NOTE | 2017-10-14 14:56 | HMH.ACPN2 ---
Internal Medicine - PN: Subj *Date: 10/14/17 *Time: 14:56 Interval history: See the prior note. Her ammonia seems to be progressive and she went into respiratory failure. She remains on BiPAP. Air is ventilating well but she has some rhonchi bilaterally. Daughter states that she seems less responsive. She has elevation in her cardiac enzymes indicating probable myocardial infarction. Exam Vital signs and Labs for Last 24 Hours: Temp Pulse Resp BP Pulse Ox 98.9 F 93 H 22 128/74 95 10/14/17 11:23 10/14/17 11:27 10/14/17 11:23 10/14/17 11:23 10/14/17 11:23 Laboratory Results - last 24 hr 10/13/17 04:52: Specimen Source Left radial, O2 % 100%, ABG pH 7.08 L*, ABG pCO2 86.0 H, ABG pO2 107.2 H, ABG HCO3 25.2, ABG Total CO2 27.8 H, ABG O2 Saturation 97, ABG Base Excess -4.8 L, Maximiliano Test Non applicable 10/13/17 09:07: Specimen Source Right radial, O2 % 50, ABG pH 7.42, ABG pCO2 42.6, ABG pO2 73.5 L, ABG HCO3 26.9 H, ABG Total CO2 28.3 H, ABG O2 Saturation 96, ABG Base Excess 2.5 H, Maximiliano Test Acceptable, Vent Rate 22, PEEP 14/6 10/13/17 14:00: Specimen Source Right radial, O2 % 50%, ABG pH 7.43, ABG pCO2 35.8, ABG pO2 80.8, ABG HCO3 23.3, ABG Total CO2 24.4, ABG O2 Saturation 96, ABG Base Excess -1.0, Maximiliano Test Acceptable, Vent Rate 22, PEEP 14/6 10/14/17 06:40: WBC 14.0 H, RBC 4.15 L, Hgb 12.4, Hct 38.0, MCV 91.6, MCH 29.8, MCHC 32.6, RDW 13.3, Plt Count 134 L, MPV 8.6, Neut % (Auto) 94.0 H, Lymph % (Auto) 3.3 L, [place] % (Auto) 2.4, Eos % (Auto) 0.1, Baso % (Auto) 0.2, Neut # (Auto) 13.2 H, Lymph # (Auto) 0.5 L, [place] # (Auto) 0.3, Eos # (Auto) 0.0, Baso # (Auto) 0.0, Total Counted 100, Neutrophils % (Manual) 77 H, Band Neutrophils % 12.0 H, Lymphocytes % (Manual) 8 L, Monocytes % (Manual) 3, Platelet Estimate Normal, RBC Morphology Normal 10/14/17 06:40: Sodium 141, Potassium 3.5, Chloride 100, Carbon Dioxide 36 H D, Anion Gap 8.5, BUN 32 H D, Creatinine 1.08 H D, Estimated Creat Clear 48, Estimated GFR 49 L, Est GFR ( Amer) 59 D, Glucose 212 H, Calcium 9.4, Total Bilirubin 0.8, AST 42 H, ALT 40, Alkaline Phosphatase 47, Total Creatine Kinase 112 D, CK-MB (CK-2) 4.4 H, CK-MB (CK-2) Rel Index 3.9, Troponin I 0.08 H, Total Protein 6.6, Albumin 2.4 L D, Globulin 4.2 H, Albumin/Globulin Ratio 0.6 L Selected Entries 10/11/17 16:21 10/11/17 21:17 10/12/17 00:20 Temperature 99.2 F 98.2 F 98.0 F Blood Pressure [Right Arm] 129/67 140/81 120/73 10/12/17 04:00 10/12/17 07:30 10/12/17 11:37 Temperature 97.7 F 98.5 F 100.8 F H Blood Pressure [Right Arm] 116/62 125/81 96/51 10/12/17 16:30 10/12/17 20:00 10/13/17 00:00 Temperature 98.2 F 98.1 F 99.1 F Blood Pressure [Right Arm] 119/65 108/54 116/71 10/13/17 04:30 10/13/17 05:10 10/13/17 07:51 Temperature 99.6 F Blood Pressure [Right Arm] 73/42 130/80 113/71 10/13/17 11:24 10/13/17 15:30 10/13/17 20:00 Temperature 98.8 F 98.3 F Blood Pressure [Right Arm] 104/66 127/65 131/65 10/14/17 00:00 10/14/17 04:00 10/14/17 08:00 Temperature 98.8 F 97.5 F L 98.0 F Blood Pressure [Right Arm] 160/72 154/77 135/81 10/14/17 11:23 Temperature 98.9 F Blood Pressure [Right Arm] 128/74 Laboratory Tests 10/11/17 10/11/17 10/12/17 16:40 16:40 06:15 WBC 8.0 9.4 Potassium BUN Creatinine 1.52 H Glucose 157 H Total Creatine Kinase CK-MB (CK-2) Troponin I B-Natriuretic Peptide 10/12/17 10/12/17 10/13/17 06:15 06:15 05:10 WBC 11.4 H Potassium 3.5 BUN 22 H Creatinine 1.28 H Glucose Total Creatine Kinase CK-MB (CK-2) Troponin I B-Natriuretic Peptide 1370 H 10/13/17 10/13/17 10/13/17 05:10 05:10 05:10 WBC Potassium 3.8 BUN 25 H Creatinine 1.43 H Glucose 187 H D Total Creatine Kinase 238 H CK-MB (CK-2) 5.6 H Troponin I 0.20 H B-Natriuretic Peptide 1290 H 10/14/17 10/14/17 06:40 06:40 WBC 14.0 H Potassium 3.5 BUN 32 H D Creatinine 1.08 H
--- NOTE | 2017-10-14 15:00 | P.PN_ITS ---
Internal Medicine - PN: Subj *Date: 10/14/17 *Time: 14:56 Interval history: See the prior note. Her ammonia seems to be progressive and she went into respiratory failure. She remains on BiPAP. Air is ventilating well but she has some rhonchi bilaterally. Daughter states that she seems less responsive. She has elevation in her cardiac enzymes indicating probable myocardial infarction. Exam Vital signs and Labs for Last 24 Hours: Temp Pulse Resp BP Pulse Ox 98.9 F 93 H 22 128/74 95 10/14/17 11:23 10/14/17 11:27 10/14/17 11:23 10/14/17 11:23 10/14/17 11:23 Laboratory Results - last 24 hr 10/13/17 04:52: Specimen Source Left radial, O2 % 100%, ABG pH 7.08 L*, ABG pCO2 86.0 H, ABG pO2 107.2 H, ABG HCO3 25.2, ABG Total CO2 27.8 H, ABG O2 Saturation 97, ABG Base Excess -4.8 L, Maximiliano Test Non applicable 10/13/17 09:07: Specimen Source Right radial, O2 % 50, ABG pH 7.42, ABG pCO2 42.6, ABG pO2 73.5 L, ABG HCO3 26.9 H, ABG Total CO2 28.3 H, ABG O2 Saturation 96, ABG Base Excess 2.5 H, Maximiliano Test Acceptable, Vent Rate 22, PEEP 14/6 10/13/17 14:00: Specimen Source Right radial, O2 % 50%, ABG pH 7.43, ABG pCO2 35.8, ABG pO2 80.8, ABG HCO3 23.3, ABG Total CO2 24.4, ABG O2 Saturation 96, ABG Base Excess -1.0, Maximiliano Test Acceptable, Vent Rate 22, PEEP 14/6 10/14/17 06:40: WBC 14.0 H, RBC 4.15 L, Hgb 12.4, Hct 38.0, MCV 91.6, MCH 29.8, MCHC 32.6, RDW 13.3, Plt Count 134 L, MPV 8.6, Neut % (Auto) 94.0 H, Lymph % ( Auto) 3.3 L, [place] % (Auto) 2.4, Eos % (Auto) 0.1, Baso % (Auto) 0.2, Neut # ( Auto) 13.2 H, Lymph # (Auto) 0.5 L, [place] # (Auto) 0.3, Eos # (Auto) 0.0, Baso # (Auto) 0.0, Total Counted 100, Neutrophils % (Manual) 77 H, Band Neutrophils % 12.0 H, Lymphocytes % (Manual) 8 L, Monocytes % (Manual) 3, Platelet Estimate Normal, RBC Morphology Normal 10/14/17 06:40: Sodium 141, Potassium 3.5, Chloride 100, Carbon Dioxide 36 H D, Anion Gap 8.5, BUN 32 H D, Creatinine 1.08 H D, Estimated Creat Clear 48, Estimated GFR 49 L, Est GFR ( Amer) 59 D, Glucose 212 H, Calcium 9.4, Total Bilirubin 0.8, AST 42 H, ALT 40, Alkaline Phosphatase 47, Total Creatine Kinase 112 D, CK-MB (CK-2) 4.4 H, CK-MB (CK-2) Rel Index 3.9, Troponin I 0.08 H , Total Protein 6.6, Albumin 2.4 L D, Globulin 4.2 H, Albumin/Globulin Ratio 0.6 L Selected Entries 10/11/17 16:21 10/11/17 21:17 10/12/17 00:20 Temperature 99.2 F 98.2 F 98.0 F Blood Pressure [Right Arm] 129/67 140/81 120/73 10/12/17 04:00 10/12/17 07:30 10/12/17 11:37 Temperature 97.7 F 98.5 F 100.8 F H Blood Pressure [Right Arm] 116/62 125/81 96/51 10/12/17 16:30 10/12/17 20:00 10/13/17 00:00 Temperature 98.2 F 98.1 F 99.1 F Blood Pressure [Right Arm] 119/65 108/54 116/71 10/13/17 04:30 10/13/17 05:10 10/13/17 07:51 Temperature 99.6 F Blood Pressure [Right Arm] 73/42 130/80 113/71 10/13/17 11:24 10/13/17 15:30 10/13/17 20:00 Temperature 98.8 F 98.3 F Blood Pressure [Right Arm] 104/66 127/65 131/65 10/14/17 00:00 10/14/17 04:00 10/14/17 08:00 Temperature 98.8 F 97.5 F L 98.0 F Blood Pressure [Right Arm] 160/72 154/77 135/81 10/14/17 11:23 Temperature 98.9 F Blood Pressure [Right Arm] 128/74 Laboratory Tests 10/11/17 10/11/17 10/12/17 16:40 16:40 06:15 WBC 8.0 9.4 Potassium BUN
[2017-10-14 15:47] LABS: CKMB Relative Index 2.4 U/L (0-4.0); Creatine Kinase 134 U/L (26-192); Creatine Kinase MB 3.2 mg/ml (0.0-3.6); Troponin I 0.06 ng/ml (0.00-0.06)
--- NOTE | 2017-10-14 19:10 | IR_ITS ---
CARDIAC CATHETERIZATION DATE OF CATHETERIZATION:10/14/2017 7:27 PM PROCEDURES: 1. Right heart catheterization 2. Left heart catheterization 3. Left ventriculogram 4. Selective coronary angiogram 5. Catheter placement in the left pulmonary artery 6. Left pulmonary artery angiogram INDICATION FOR TEST: 1. Acute respiratory failure 2. Elevated troponin 3. Cardiomegaly 4. Pulmonary hypertension 5. Coronary artery disease 6. Suspected left pulmonary embolism Informed consent was obtained prior to the procedure. COMPLICATIONS: None ESTIMATED BLOOD LOSS: Less than 10 ml. TECHNIQUE: One percent lidocaine was used to anesthetize the right groin. The right femoral artery was accessed via the Seldinger technique. A 4-Serbian and 7 stateless sheath was placed in the right femoral artery and vein respectfully. The JR-4 and JL-5 catheter was also used to perform left heart catheterization, left ventriculography and selective coronary angiogram. At the end of the procedure the patient was transferred to the post-op holding area in stable condition for arterial sheath removal. ANGIOGRAPHIC RESULTS: 1. The left main artery normal 2. The left anterior descending artery has proximal mild calcifications with diffuse 20% stenoses followed by a mid vessel concentric 50% nonflow limiting stenosis 3. The circumflex artery is non dominant and has mild nonflow limiting 2030% stenoses 4. The right coronary artery is a large dominant vessel with mild 10% proximal and mid vessel stenoses and a distal concentric 30% stenosis. The posterior descending artery has a proximal eccentric 40-50% nonflow limiting stenosis while the posterior lateral ventricular branch has proximal and mid vessel 30% stenoses 5. The WILDER ventriculogram reveals normal ejection fraction 65% 6. The left ventricular end-diastolic pressure 10 mmHg 7. The left main pulmonary artery is patent with angiographic evidence of contrast dispersion within the left upper and middle infiltrate basically ruling out pulmonary embolism as the etiology for patient's demise HEMODYNAMICS: Right atrial pressure is 8 mm Hg. Pulmonary arterial pressure is 32/15 mm Hg. Pulmonary artery occlusion pressure is 10 mm Hg. SATURATIONS: RA is 80 %. PA is 74 %. IMPRESSION: 1. Nonflow limiting coronary artery disease 2. Normal ejection fraction 3. Normal intracardiopulmonary filling pressures PLAN: 1. Noncardiac respiratory failure with the most likely diagnosis being left sided pneumonia 2. Continue supportive care 3. Consider anticoagulation for atrial fibrillation.
[2017-10-14 20:31] LABS: ABG Base Excess 9.9 mmol/L (-2.4-2.3); ABG HCO3 33.5 mmhg (22.0-26.0); ABG Oxygen Saturation 97 % (90-100); ABG PCO2 46.6 mmhg (35.0-45.0); ABG PH 7.47 mmol/L (7.35-7.45); ABG PO2 88.5 mmhg (80-100); ABG TCO2 34.9 mmhg (23-27)
[2017-10-14 20:32] LABS: Allen's Test Y; Oxygen 50 %
[2017-10-14 21:02] LABS: CATHL Arterial O2 SAT 74.1 % (90-100); CATHL Venous O2 SAT 80.2 % (75-80)
[2017-10-15] VITALS (15 sets, daily range): BP systolic 111–134; BP diastolic 63–84; PULSE 60–100; RESP 18–29; TEMP 36.6–37.4; O2SAT 89–97; BMI 28.2
[2017-10-15 06:06] LABS: Basophils # 0.1 K/mm3 (0-0.2); Basophils % 0.3 % (0.1-2.0); Eosinophils % 0.3 % (0.1-12.0); Hematocrit 36.3 % (37.0-47.0); Hemoglobin 12.1 g/dL (12.2-16.2); Lymphocytes # 0.5 K/mm3 (0.7-4.5); Lymphocytes % 3.7 K/mm3 (10-50); Mean Corpuscular HGB Conc 33.2 g/dL (31.8-35.4); Mean Corpuscular Hemoglobin 29.7 pg (27.0-31.2); Mean Corpuscular Volume 89.4 fl (81-99); Mean Platelet Volume 8.3 fl (7.4-10.4); Monocytes # 0.5 K/mm3 (0.1-1.0); Monocytes % 3.1 % (1.7-9.3); Neutrophils # 13.5 K/mm3 (1.8-7.8); Neutrophils % 92.7 % (37.0-80.0); Platelet Count 129 K/mm3 (142-424); Red Blood Count 4.06 M/mm3 (4.20-5.40); Red Cell Distribution Width 13.2 % (11.5-17.5); White Blood Count 14.6 K/mm3 (4.8-10.8)
[2017-10-15 06:11] LABS: MANUAL DIFFERENTIAL MANUAL DIFFERENTIAL (MANUAL DIFF)
[2017-10-15 06:19] LABS: Anion Gap 7.6 mEq/L (5-15); Blood Urea Nitrogen 35 mg/dL (7-18); Chloride 96 mmol/L (98-107); Creatinine Clearance Estimated 47 mL/min (0-300); Creatinine,Serum 1.08 mg/dL (0.55-1.02); Estimated Glomerular Filt Rate 49 ml/min (>60); GFR (African American) 59 ML/MIN (>60); Glucose 220 mg/dL (74-106); Sodium 143 mmol/L (136-145)
--- NOTE | 2017-10-15 06:55 | CA_ITS ---
PROCEDURE: 2-D M-mode and color Doppler study INDICATIONS FOR THE TEST: Chest pain COPD Heart Murmur Tobacco Smoking Palpitations Fatigue Syncope Edema HypertensionXDiabetes Mellitus Rheumatic Fever SOB TODD Obesity HyperlipidemiaX Family History HD Additional History CARDIOMEGALY,PHTN,CAD,H/O CHF PT ON BIPAP PATIENT INFORMATION HEIGHT: 63 WEIGHT:159 GENDER: Female B/P:128/74 2-D/M-MODE INTERPRETATION: 2-D MEASUREMENTS OBSERVED VALUES IN CMS Right Ventricular Dimension (RVDd) 3.6 Interventricular Septum (Thickness)(IVsd) 1.2 Left Ventricular Internal Dimensions(LVIDd) 4.2 Left Ventricular Posterior Wall (Thickness)(LVPWd) .9 Aortic Root 3.0 Aortic Cusp Separation 1.3 Left Atrial Dimensions (LAD) 3.9 2D 1. Left atrium is qualitatively moderately enlarged, left ventricle is normal size, there is mild concentric left ventricular hypertrophy, visually estimated ejection fraction 55% with no obvious regional wall motion abnormality. 2. The right atrium and right ventricle are moderately enlarged, contractility of the right ventricle is normal, there is a pacemaker lead seen in the right atrium and right ventricle. 3. The aortic valve is minimally thickened and fibrosed. 4. The mitral and tricuspid valve leaflets are minimally thickened. 5. The pulmonic valve is poorly visualized. 6. No significant pericardial effusion noted. DOPPLER INTERROGATION: Doppler interrogation of the aortic, mitral and tricuspid valvular presence of mild mitral and moderate tricuspid regurgitation, calculated right ventricular systolic pressure is 51 mmHg consistent with moderate pulmonary hypertension. Inferior vena cava is mildly dilated with normal inspiratory collapse. CONCLUSION: 1. Moderate biatrial enlargement, normal left ventricular size, mild concentric left ventricular hypertrophy, visually estimated ejection fraction of 55% with no obvious regional wall motion abnormality. 2. Moderately enlarged right ventricle normal contractility. 3. Mild mitral and moderate tricuspid regurgitation, calculated right ventricular systolic pressure 51 mmHg consistent moderate pulmonary hypertension. 4. No significant pericardial effusion noted.
[2017-10-15 06:58] LABS: Carbon Dioxide 42 mmol/L (21.0-32.0); Potassium 2.6 mmoL/L (3.5-5.1)
--- NOTE | 2017-10-15 07:00 | XR_ITS ---
XR chest portable Ordering Physician: Abbie Graves MD Patient Age: 82 years: Female HISTORY: ITS.REASON: pneumonia TECHNIQUE: COMPARISON :120 04/03 and 10/11/2017 portable CXR. FINDINGS Mild Progression of findings bilateral Left lung. More diffuse infiltrate seen at the left lung. Although the infiltrate is not as dense here at the left upper lobe... Seems to have disseminated and more extensive about the left perihilar region and now extending more into the lingula and possibly involving the left lower lobe as well. Minimal air bronchograms centrally. Right lung Progression focal infiltrate at the right infrahilar region towards medial RLL. With right upper lung field is clear. Borderline/mild cardiomegaly.. No pleural effusions evident. No CHF. Pacemaker with atrial and ventricular leads intact. web software engineer leads noted. IMPRESSION: Bilateral pneumonia with slight progression of findings Left lung: Previously noted:TAB infiltrate is less dense but now more disseminated throughout the left lung & into the lingula... Possibly involving left LLL as well. Right lung. Definite Progression of patchy focal infiltrate right infrahilar/ & medial RLL . Mild cardiomegaly
[2017-10-15 07:40] LABS: Lymphocytes % 2 % (10-50); Monocytes % 2 % (2-9); Neutrophils % 88 % (42-76); Platelet Estimate Slight Decrease; RBC Morphology Normal; Total Cells Counted 100
--- NOTE | 2017-10-15 08:15 | HMH.ACPN2 ---
Internal Medicine - PN: Subj *Date: 10/15/17 *Time: 08:15 Interval history: Daughter feels she is better today; more alert; rested well last night; patient states breathing is better; some cough; not hungry; has wells cath; off BIPAP this AM for breakfast and O2 sats stable thus far K+ is 2.9 ; WBC's not improved Exam Vital signs and Labs for Last 24 Hours: Temp Pulse Resp BP Pulse Ox 98.3 F 96 H 20 123/68 96 10/15/17 04:15 10/15/17 06:13 10/15/17 04:15 10/15/17 04:15 10/15/17 06:13 Laboratory Results - last 24 hr 10/14/17 06:40: Total Counted 100, Neutrophils % (Manual) 77 H, Band Neutrophils % 12.0 H, Lymphocytes % (Manual) 8 L, Monocytes % (Manual) 3, Platelet Estimate Normal, RBC Morphology Normal 10/14/17 15:06: Total Creatine Kinase 134, CK-MB (CK-2) 3.2 D, CK-MB (CK-2) Rel Index 2.4, Troponin I 0.06 10/14/17 20:20: ABG O2 Sat (Measured) 74.1 L, POC VBG O2 Sat (Ji) 80.2 H 10/14/17 20:27: O2 % 50, ABG pH 7.47 H, ABG pCO2 46.6 H, ABG pO2 88.5, ABG HCO3 33.5 H, ABG Total CO2 34.9 H, ABG O2 Saturation 97, ABG Base Excess 9.9 H, Maximiliano Test Y 10/15/17 05:45: WBC 14.6 H, RBC 4.06 L, Hgb 12.1 L, Hct 36.3 L, MCV 89.4, MCH 29.7, MCHC 33.2, RDW 13.2, Plt Count 129 L, MPV 8.3, Neut % (Auto) 92.7 H, Lymph % (Auto) 3.7 L, [place] % (Auto) 3.1, Eos % (Auto) 0.3, Baso % (Auto) 0.3, Neut # (Auto) 13.5 H, Lymph # (Auto) 0.5 L, [place] # (Auto) 0.5, Eos # (Auto) 0.0, Baso # (Auto) 0.1, Total Counted 100, Neutrophils % (Manual) 88 H, Band Neutrophils % 8.0, Lymphocytes % (Manual) 2 L, Monocytes % (Manual) 2, Platelet Estimate Slight decrease, RBC Morphology Normal 10/15/17 05:45: Sodium 143, Potassium 2.6 L* D, Chloride 96 L, Carbon Dioxide 42 H*, Anion Gap 7.6, BUN 35 H, Creatinine 1.08 H, Estimated Creat Clear 47, Estimated GFR 49 L, Est GFR ( Amer) 59, Glucose 220 H I & O for Last 24 hours: Intake & Output 10/12/17 10/13/17 10/14/17 10/15/17 11:59 11:59 11:59 11:59 Intake Total 831 / 831 550 / 550 250 / 250 710 / 710 Output Total 350 / 350 1375 / 1375 1200 / 1200 4350 / 4350 Balance 481 / 481 -825 / -825 -950 / -950 -3640 / -3640 Weight 162 lb 8 oz 159 lb 6.669 oz - Constitutional no acute distress - *Routine Respiratory Exam Absent: accessory muscle use, respiratory distress Comments: bilateral basilar crackles - *Routine Cardiovascular Exam Present: RRR - *Routine Abdominal Exam Present: soft, normoactive bowel sounds. Absent: tenderness, distended - *Routine Extremities Exam Absent: edema, calf tenderness - *Routine Skin Exam Present: erythema (groin areas) - *Routine Neurological Exam Present: alert Assessment and Plan (1) Bilateral pneumonia Current visit: Yes Status: Acute Qualifiers: Pneumonia type: due to unspecified organism Lung location: unspecified part of lung Qualified Code(s): J18.9 - Pneumonia, unspecified organism Category: Medical Code(s): J18.9 - Pneumonia, unspecified organism (2) Hypercapnic respiratory failure Current visit: Yes Status: Acute Qualifiers: Chronicity: acute Qualified Code(s): J96.02 - Acute respiratory failure with hypercapnia Category: Medical Code(s): J96.92 - Respiratory failure, unspecified with hypercapnia (3) Dehydration Current visit: Yes Status: Acute Category: Medical Code(s): E86.0 - Dehydration (4) Hypothyroid Current visit: Yes Status: Acute Category: Medical Code(s): E03.9 - Hypothyroidism, unspecified (5) Hyperlipemia Current visit: Yes Status: Acute Category: Medical Code(s): E78.5 - Hyperlipidemia, unspecified (6) Hypertension Current visit: Yes Status: Acute Category: Medical Code(s): I10 - Essential (primary) hypertension (7) Myocardial infarction Current visit: Yes Status: Acute Category: Medical Code(s): I21.9 - Acute myocardial infarction, unspecified (8) Congestive heart failure (CHF) Current visit: Yes Status: Acute Category: Medic
--- NOTE | 2017-10-15 08:18 | P.PN_ITS ---
Internal Medicine - PN: Subj *Date: 10/15/17 *Time: 08:15 Interval history: Daughter feels she is better today; more alert; rested well last night; patient states breathing is better; some cough; not hungry; has wells cath; off BIPAP this AM for breakfast and O2 sats stable thus far K+ is 2.9 ; WBC's not improved Exam Vital signs and Labs for Last 24 Hours: Temp Pulse Resp BP Pulse Ox 98.3 F 96 H 20 123/68 96 10/15/17 04:15 10/15/17 06:13 10/15/17 04:15 10/15/17 04:15 10/15/17 06:13 Laboratory Results - last 24 hr 10/14/17 06:40: Total Counted 100, Neutrophils % (Manual) 77 H, Band Neutrophils % 12.0 H, Lymphocytes % (Manual) 8 L, Monocytes % (Manual) 3, Platelet Estimate Normal, RBC Morphology Normal 10/14/17 15:06: Total Creatine Kinase 134, CK-MB (CK-2) 3.2 D, CK-MB (CK-2) Rel Index 2.4, Troponin I 0.06 10/14/17 20:20: ABG O2 Sat (Measured) 74.1 L, POC VBG O2 Sat (Ji) 80.2 H 10/14/17 20:27: O2 % 50, ABG pH 7.47 H, ABG pCO2 46.6 H, ABG pO2 88.5, ABG HCO3 33.5 H, ABG Total CO2 34.9 H, ABG O2 Saturation 97, ABG Base Excess 9.9 H, Maximiliano Test Y 10/15/17 05:45: WBC 14.6 H, RBC 4.06 L, Hgb 12.1 L, Hct 36.3 L, MCV 89.4, MCH 29.7, MCHC 33.2, RDW 13.2, Plt Count 129 L, MPV 8.3, Neut % (Auto) 92.7 H, Lymph % (Auto) 3.7 L, [place] % (Auto) 3.1, Eos % (Auto) 0.3, Baso % (Auto) 0.3, Neut # (Auto) 13.5 H, Lymph # (Auto) 0.5 L, [place] # (Auto) 0.5, Eos # (Auto) 0.0 , Baso # (Auto) 0.1, Total Counted 100, Neutrophils % (Manual) 88 H, Band Neutrophils % 8.0, Lymphocytes % (Manual) 2 L, Monocytes % (Manual) 2, Platelet Estimate Slight decrease, RBC Morphology Normal 10/15/17 05:45: Sodium 143, Potassium 2.6 L* D, Chloride 96 L, Carbon Dioxide 42 H*, Anion Gap 7.6, BUN 35 H, Creatinine 1.08 H, Estimated Creat Clear 47, Estimated GFR 49 L, Est GFR ( Amer) 59, Glucose 220 H I & O for Last 24 hours: Intake & Output 10/12/17 10/13/17 10/14/17 10/15/17 11:59 11:59 11:59 11:59 Intake Total 831 / 831 550 / 550 250 / 250 710 / 710 Output Total 350 / 350 1375 / 1375 1200 / 1200 4350 / 4350 Balance 481 / 481 -825 / -825 -950 / -950 -3640 / -3640 Weight 162 lb 8 oz 159 lb 6.669 oz - Constitutional no acute distress - *Routine Respiratory Exam Absent: accessory muscle use, respiratory distress Comments: bilateral basilar crackles - *Routine Cardiovascular Exam Present: RRR - *Routine Abdominal Exam Present: soft, normoactive bowel sounds. Absent: tenderness, distended - *Routine Extremities Exam Absent: edema, calf tenderness - *Routine Skin Exam Present: erythema (groin areas) - *Routine Neurological Exam Present: alert Assessment and Plan (1) Bilateral pneumonia Current visit: Yes Status: Acute Qualifiers: Pneumonia type: due to unspecified organism Lung location: unspecified part of lung Qualified Code(s): J18.9 - Pneumonia, unspecified organism Category: Medical Code(s): J18.9 - Pneumonia, unspecified organism (2) Hypercapnic respiratory failure Current visit: Yes Status: Acute Qualifiers: Chronicity: acute Qualified Code(s): J96.02 - Acute respiratory failure with hypercapnia Category: Medical Code(s): J96.92 - Respiratory failure, unspecified with hypercapnia (3) Dehydration Current visit: Yes Status: Acute Category: Medical Code(s): E86.0 - Dehydration (4) Hypothyroid Current visit: Yes Status: Acute Category: Medical Code(s): E03.9 - Hypothyroidism, unspecified
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
--- NOTE | 2017-10-15 08:33 | HMH.ACPN ---
Internal Medicine - PN: Subj *Date: 10/15/17 *Time: 08:33 Exam Vital signs and Labs for Last 24 Hours: Temp Pulse Resp BP Pulse Ox 98.3 F 96 H 20 123/68 96 10/15/17 04:15 10/15/17 06:13 10/15/17 04:15 10/15/17 04:15 10/15/17 06:13 Laboratory Results - last 24 hr 10/14/17 06:40: Total Counted 100, Neutrophils % (Manual) 77 H, Band Neutrophils % 12.0 H, Lymphocytes % (Manual) 8 L, Monocytes % (Manual) 3, Platelet Estimate Normal, RBC Morphology Normal 10/14/17 15:06: Total Creatine Kinase 134, CK-MB (CK-2) 3.2 D, CK-MB (CK-2) Rel Index 2.4, Troponin I 0.06 10/14/17 20:20: ABG O2 Sat (Measured) 74.1 L, POC VBG O2 Sat (Ji) 80.2 H 10/14/17 20:27: O2 % 50, ABG pH 7.47 H, ABG pCO2 46.6 H, ABG pO2 88.5, ABG HCO3 33.5 H, ABG Total CO2 34.9 H, ABG O2 Saturation 97, ABG Base Excess 9.9 H, Maximiliano Test Y 10/15/17 05:45: WBC 14.6 H, RBC 4.06 L, Hgb 12.1 L, Hct 36.3 L, MCV 89.4, MCH 29.7, MCHC 33.2, RDW 13.2, Plt Count 129 L, MPV 8.3, Neut % (Auto) 92.7 H, Lymph % (Auto) 3.7 L, [place] % (Auto) 3.1, Eos % (Auto) 0.3, Baso % (Auto) 0.3, Neut # (Auto) 13.5 H, Lymph # (Auto) 0.5 L, [place] # (Auto) 0.5, Eos # (Auto) 0.0, Baso # (Auto) 0.1, Total Counted 100, Neutrophils % (Manual) 88 H, Band Neutrophils % 8.0, Lymphocytes % (Manual) 2 L, Monocytes % (Manual) 2, Platelet Estimate Slight decrease, RBC Morphology Normal 10/15/17 05:45: Sodium 143, Potassium 2.6 L* D, Chloride 96 L, Carbon Dioxide 42 H*, Anion Gap 7.6, BUN 35 H, Creatinine 1.08 H, Estimated Creat Clear 47, Estimated GFR 49 L, Est GFR ( Amer) 59, Glucose 220 H I & O for Last 24 hours: Intake & Output 10/12/17 10/13/17 10/14/17 10/15/17 23:59 23:59 23:59 23:59 Intake Total 1381 / 1381 100 / 100 510 / 510 350 / 350 Output Total 1650 / 1650 775 / 775 1250 / 1250 3600 / 3600 Balance -269 / -269 -675 / -675 -740 / -740 -3250 / -3250 Weight 73.709 kg 72.31 kg Assessment and Plan (1) Bilateral pneumonia Current visit: Yes Status: Acute Qualifiers: Pneumonia type: due to unspecified organism Lung location: unspecified part of lung Qualified Code(s): J18.9 - Pneumonia, unspecified organism Category: Medical Code(s): J18.9 - Pneumonia, unspecified organism (2) Hypercapnic respiratory failure Current visit: Yes Status: Acute Qualifiers: Chronicity: acute Qualified Code(s): J96.02 - Acute respiratory failure with hypercapnia Category: Medical Code(s): J96.92 - Respiratory failure, unspecified with hypercapnia (3) Dehydration Current visit: Yes Status: Acute Category: Medical Code(s): E86.0 - Dehydration (4) Hypothyroid Current visit: Yes Status: Acute Category: Medical Code(s): E03.9 - Hypothyroidism, unspecified (5) Hyperlipemia Current visit: Yes Status: Acute Category: Medical Code(s): E78.5 - Hyperlipidemia, unspecified (6) Hypertension Current visit: Yes Status: Acute Category: Medical Code(s): I10 - Essential (primary) hypertension (7) Myocardial infarction Current visit: Yes Status: Acute Category: Medical Code(s): I21.9 - Acute myocardial infarction, unspecified (8) Congestive heart failure (CHF) Current visit: Yes Status: Acute Category: Medical Code(s): I50.9 - Heart failure, unspecified (9) Hypokalemia Current visit: Yes Status: Acute Category: Medical Code(s): E87.6 - Hypokalemia The patient's infection will respond to the chosen ABx?: Yes Is the patient receiving the right drug, dose, and route?: Yes Could a more targeted ABx be ordered?: No (CULTURES STILL PENDING AT TIME OF NOTE)
--- NOTE | 2017-10-15 11:32 | HMH.CARDPN2 ---
Subjective PN (PG) Date: 10/15/17 Time: 09:00 Principal diagnosis: SOA, elevated troponin Interval history: 82-year-old white female admitted over the weekend for increasing shortness of breath. Patient was noted to have elevated troponins while in respiratory distress. Patient was taken to the cardiac Vegetable Grader and was noted to have [id number] coronary artery disease with normal ejection fraction. Respiratory distress was prepped felt to be due to patient's diagnosis of pneumonia. This morning patient is on BiPAP and is feeling better. She is followed regularly by meal room hand in [facility] for history of pacemaker insertion. PN Exam ([facility] Owned) Vital signs: Temp Pulse Resp BP Pulse Ox 98.0 F 100 H 24 134/84 89 L 10/15/17 08:00 10/15/17 08:00 10/15/17 08:00 10/15/17 08:00 10/15/17 08:00 - Routine Respiratory Exam Present: rhonchi - Routine Cardiovascular Exam Present: irregular rhythm - Urinary Catheter Management Schmidt Cath placed during this visit: yes Urethral indwelling: Yes Reason for continuing: Prolonged immobilization Insertion date: 10/13/17 Insertion time: 04:45 A/P Progress Note ([facility] Owned) (1) Atrial fibrillation Status: Acute Assessment and plan: Recommend switching Norvasc to Cardizem or verapamil for better rate control while maintaining blood pressure management. Recommend anticoagulation therapy with either warfarin, Xarelto or Eliquis. Current Visit: Yes (2) Hypercapnic respiratory failure Status: Acute Current Visit: Yes (3) Pneumonia Status: Acute Current Visit: Yes
--- NOTE | 2017-10-15 11:35 | P.PN_ITS ---
Subjective PN (PG) Date: 10/15/17 Time: 09:00 Principal diagnosis: SOA, elevated troponin Interval history: 82-year-old white female admitted over the weekend for increasing shortness of breath. Patient was noted to have elevated troponins while in respiratory distress. Patient was taken to the cardiac Casino Host and was noted to have non- flow-limiting coronary artery disease with normal ejection fraction. Respiratory distress was prepped felt to be due to patient's diagnosis of pneumonia. This morning patient is on BiPAP and is feeling better. She is followed regularly by hand meat salter in [facility] for history of pacemaker insertion. PN Exam ([facility] Owned) Vital signs: Temp Pulse Resp BP Pulse Ox 98.0 F 100 H 24 134/84 89 L 10/15/17 08:00 10/15/17 08:00 10/15/17 08:00 10/15/17 08:00 10/15/17 08:00 - Routine Respiratory Exam Present: rhonchi - Routine Cardiovascular Exam Present: irregular rhythm - Urinary Catheter Management Schmidt Cath placed during this visit: yes Urethral indwelling: Yes Reason for continuing: Prolonged immobilization Insertion date: 10/13/17 Insertion time: 04:45 A/P Progress Note ([facility] Owned) (1) Atrial fibrillation Status: Acute Assessment and plan: Recommend switching Norvasc to Cardizem or verapamil for better rate control while maintaining blood pressure management. Recommend anticoagulation therapy with either warfarin, Xarelto or Eliquis. Current Visit: Yes (2) Hypercapnic respiratory failure Status: Acute Current Visit: Yes (3) Pneumonia Status: Acute Current Visit: Yes
[2017-10-16] VITALS (14 sets, daily range): BP systolic 101–129; BP diastolic 59–71; PULSE 60–90; RESP 18–28; TEMP 36.4–37.2; O2SAT 86–98
--- NOTE | 2017-10-16 06:30 | PC.NURSE ---
PATIENTS SATS STAYED IN THE LOW TO MID 90S WITH BIPAP ON, WHEN TAKEN OFF TO TAKE MEDS SATS DROPPED TO MID TO HIGH 80S. PATIENT STATES SHE FEELS BETTER THIS MORNING. DRESSING TO RIGHT GROIN IS C/D/I WITH NO HEMATOMAS NOTED. BUTTS PATENT AND DRAINING, LIGHT YELLOW URINE. SOME RHONCHI AND WHEEZES HEARD THROUGHOUT LUNGS, NYSTATIN POWDER APPLIED TO BREAST AND ABDOMINAL FOLDS FOR REDNESS AND EXCORIATION. VSS. NO ACUTE CHANGES NOTED. CALL LIGHT IN REACH. WILL CONTINUE TO MONITOR.
[2017-10-16 07:04] LABS: Basophils # 0.1 K/mm3 (0-0.2); Basophils % 0.3 % (0.1-2.0); Hematocrit 38.6 % (37.0-47.0); Hemoglobin 12.7 g/dL (12.2-16.2); Lymphocytes % 7.3 K/mm3 (10-50); Mean Corpuscular HGB Conc 32.8 g/dL (31.8-35.4); Mean Corpuscular Hemoglobin 29.7 pg (27.0-31.2); Mean Corpuscular Volume 90.6 fl (81-99); Mean Platelet Volume 8.5 fl (7.4-10.4); Monocytes # 0.5 K/mm3 (0.1-1.0); Monocytes % 3.7 % (1.7-9.3); Neutrophils # 11.8 K/mm3 (1.8-7.8); Neutrophils % 88.6 % (37.0-80.0); Platelet Count 142 K/mm3 (142-424); Red Blood Count 4.26 M/mm3 (4.20-5.40); Red Cell Distribution Width 13.5 % (11.5-17.5); White Blood Count 13.4 K/mm3 (4.8-10.8)
[2017-10-16 07:05] LABS: Anion Gap 6.8 mEq/L (5-15); Blood Urea Nitrogen 38 mg/dL (7-18); Chloride 96 mmol/L (98-107); Creatinine Clearance Estimated 47 mL/min (0-300); Creatinine,Serum 1.07 mg/dL (0.55-1.02); Estimated Glomerular Filt Rate 49 ml/min (>60); GFR (African American) 60 ML/MIN (>60); Glucose 276 mg/dL (74-106); Sodium 141 mmol/L (136-145)
[2017-10-16 07:12] LABS: Carbon Dioxide 41 mmol/L (21.0-32.0); Potassium 2.8 mmoL/L (3.5-5.1)
[2017-10-16 07:25] LABS: MANUAL DIFFERENTIAL MANUAL DIFFERENTIAL (MANUAL DIFF)
--- NOTE | 2017-10-16 07:49 | PC.NURSE ---
pt refused a bath. nurse notified
--- NOTE | 2017-10-16 09:21 | HMH.ACPN2 ---
Internal Medicine - PN: Subj *Date: 10/16/17 *Time: 09:21 Interval history: She seems to be doing a little better. Certainly she is responsive as of last night and this continues this morning. Family is visiting with her. She seems alert and oriented though she still has the BiPAP on. She has tolerated being off the BiPAP for short periods of time and we need to pursue this. Potassium is low. He has received 3 times daily potassium p.o. Exam Vital signs and Labs for Last 24 Hours: Temp Pulse Resp BP Pulse Ox 97.5 F L 90 22 129/69 88 L 10/16/17 08:00 10/16/17 08:00 10/16/17 08:00 10/16/17 08:00 10/16/17 08:00 Laboratory Results - last 24 hr 10/16/17 06:00: WBC 13.4 H, RBC 4.26, Hgb 12.7, Hct 38.6, MCV 90.6, MCH 29.7, MCHC 32.8, RDW 13.5, Plt Count 142, MPV 8.5, Neut % (Auto) 88.6 H, Lymph % (Auto) 7.3 L, [place] % (Auto) 3.7, Eos % (Auto) 0.0 L, Baso % (Auto) 0.3, Neut # (Auto) 11.8 H, Lymph # (Auto) 1.0, [place] # (Auto) 0.5, Eos # (Auto) 0.0, Baso # (Auto) 0.1 10/16/17 06:00: Sodium 141, Potassium 2.8 L*, Chloride 96 L, Carbon Dioxide 41 H*, Anion Gap 6.8, BUN 38 H, Creatinine 1.07 H, Estimated Creat Clear 47, Estimated GFR 49 L, Est GFR ( Amer) 60, Glucose 276 H I & O for Last 24 hours: Intake & Output 10/13/17 10/14/17 10/15/17 10/16/17 11:59 11:59 11:59 11:59 Intake Total 550 / 550 250 / 250 1050 / 1050 657 / 657 Output Total 1375 / 1375 1200 / 1200 4350 / 4350 800 / 800 Balance -825 / -825 -950 / -950 -3300 / -3300 -143 / -143 Weight 159 lb 6.669 oz 159 lb 9 oz - Constitutional Comments: Resting in bed with BiPAP in place. She is alert and oriented and interacting with her family. Is in no distress. - *Routine Respiratory Exam Comments: Moving air well. On BiPAP. - *Routine Cardiovascular Exam Present: RRR - *Routine Abdominal Exam Present: soft. Absent: tenderness - *Routine Extremities Exam Absent: edema Assessment and Plan (1) Pneumonia Current visit: Yes Status: Acute Category: Medical Code(s): J18.9 - Pneumonia, unspecified organism (2) Hypercapnic respiratory failure Current visit: Yes Status: Acute Qualifiers: Chronicity: acute Qualified Code(s): J96.02 - Acute respiratory failure with hypercapnia Category: Medical Code(s): J96.92 - Respiratory failure, unspecified with hypercapnia (3) Atrial fibrillation Current visit: Yes Status: Acute Category: Medical Code(s): I48.91 - Unspecified atrial fibrillation (4) Hypokalemia Current visit: Yes Status: Acute Category: Medical Code(s): E87.6 - Hypokalemia - Assessment and plan all Dx Assessment and Plan for all problems:: Continue present care. Will give a run of potassium today.
--- NOTE | 2017-10-16 09:24 | P.PN_ITS ---
Internal Medicine - PN: Subj *Date: 10/16/17 *Time: 09:21 Interval history: She seems to be doing a little better. Certainly she is responsive as of last night and this continues this morning. Family is visiting with her. She seems alert and oriented though she still has the BiPAP on. She has tolerated being off the BiPAP for short periods of time and we need to pursue this. Potassium is low. He has received 3 times daily potassium p.o. Exam Vital signs and Labs for Last 24 Hours: Temp Pulse Resp BP Pulse Ox 97.5 F L 90 22 129/69 88 L 10/16/17 08:00 10/16/17 08:00 10/16/17 08:00 10/16/17 08:00 10/16/17 08:00 Laboratory Results - last 24 hr 10/16/17 06:00: WBC 13.4 H, RBC 4.26, Hgb 12.7, Hct 38.6, MCV 90.6, MCH 29.7, MCHC 32.8, RDW 13.5, Plt Count 142, MPV 8.5, Neut % (Auto) 88.6 H, Lymph % (Auto ) 7.3 L, [place] % (Auto) 3.7, Eos % (Auto) 0.0 L, Baso % (Auto) 0.3, Neut # (Auto ) 11.8 H, Lymph # (Auto) 1.0, [place] # (Auto) 0.5, Eos # (Auto) 0.0, Baso # (Auto ) 0.1 10/16/17 06:00: Sodium 141, Potassium 2.8 L*, Chloride 96 L, Carbon Dioxide 41 H *, Anion Gap 6.8, BUN 38 H, Creatinine 1.07 H, Estimated Creat Clear 47, Estimated GFR 49 L, Est GFR ( Amer) 60, Glucose 276 H I & O for Last 24 hours: Intake & Output 10/13/17 10/14/17 10/15/17 10/16/17 11:59 11:59 11:59 11:59 Intake Total 550 / 550 250 / 250 1050 / 1050 657 / 657 Output Total 1375 / 1375 1200 / 1200 4350 / 4350 800 / 800 Balance -825 / -825 -950 / -950 -3300 / -3300 -143 / -143 Weight 159 lb 6.669 oz 159 lb 9 oz - Constitutional Comments: Resting in bed with BiPAP in place. She is alert and oriented and interacting with her family. Is in no distress. - *Routine Respiratory Exam Comments: Moving air well. On BiPAP. - *Routine Cardiovascular Exam Present: RRR - *Routine Abdominal Exam Present: soft. Absent: tenderness - *Routine Extremities Exam Absent: edema Assessment and Plan (1) Pneumonia Current visit: Yes Status: Acute Category: Medical Code(s): J18.9 - Pneumonia, unspecified organism (2) Hypercapnic respiratory failure Current visit: Yes Status: Acute Qualifiers: Chronicity: acute Qualified Code(s): J96.02 - Acute respiratory failure with hypercapnia Category: Medical Code(s): J96.92 - Respiratory failure, unspecified with hypercapnia (3) Atrial fibrillation Current visit: Yes Status: Acute Category: Medical Code(s): I48.91 - Unspecified atrial fibrillation (4) Hypokalemia Current visit: Yes Status: Acute Category: Medical Code(s): E87.6 - Hypokalemia - Assessment and plan all Dx Assessment and Plan for all problems:: Continue present care. Will give a run of potassium today.
[2017-10-16 09:54] LABS: Lymphocytes % 8 % (10-50); Monocytes % 2 % (2-9); Neutrophils % 88 % (42-76); Platelet Estimate Slight Decrease; Total Cells Counted 100
--- NOTE | 2017-10-16 17:06 | PC.NURSE ---
patient has had an okay day.currently on 4.5 liters with sats at about 86%. okay with patient being in upper 80s with sats. not sob at this time. does seem hot, with temps normal. complaining of dry mouth from bipap. rhythm paced but jerilyn at times, is in 1st egree block when its not pacing. vss will continue to moniotr.
--- NOTE | 2017-10-16 20:35 | PC.NURSE ---
nurse aware of pts o2 sats
--- NOTE | 2017-10-16 23:31 | PC.NURSE ---
Pt notified on IV site needing to be change per policy of changing Q72H, pt stated If its fine I dont want to be stuck again. IV patent with no s/s of infiltration
[2017-10-17] VITALS (15 sets, daily range): BP systolic 118–145; BP diastolic 59–76; PULSE 60–91; RESP 15–32; TEMP 36.2–37.4; O2SAT 91–98
--- NOTE | 2017-10-17 03:59 | PC.NURSE ---
PT RESTED WELL THROUGHOUT NIGHT. PT TOLERATED BIPAP WELL. PT BUTTS CATH PATENT AND DRAINING CLEAR, YELLOW URINE AT BEDSIDE. A-FIB WITH PACER SPIKES NOTED TO SYSTEMS ADMINISTRATION ANALYST. TEDS NOTED TO BLE. BOWEL SOUNDS WERE HYPOACTIVE IN ALL 4 QUADS. WHEEZES NOTED DURING LUNG AUSCULTATION. VSS. CONTINUOUS PULSE OX IN PLACE. A&O X3. NO ACUTE DISTRESS NOTED, WILL CONTINUE TO MONITOR.
[2017-10-17 06:50] LABS: Basophils # 0.1 K/mm3 (0-0.2); Basophils % 0.9 % (0.1-2.0); Eosinophils % 0.2 % (0.1-12.0); Hematocrit 38.5 % (37.0-47.0); Hemoglobin 12.5 g/dL (12.2-16.2); Lymphocytes # 0.9 K/mm3 (0.7-4.5); Lymphocytes % 9.7 K/mm3 (10-50); Mean Corpuscular HGB Conc 32.6 g/dL (31.8-35.4); Mean Corpuscular Hemoglobin 29.6 pg (27.0-31.2); Mean Corpuscular Volume 90.8 fl (81-99); Mean Platelet Volume 8.6 fl (7.4-10.4); Monocytes # 0.5 K/mm3 (0.1-1.0); Monocytes % 5.6 % (1.7-9.3); Neutrophils # 7.5 K/mm3 (1.8-7.8); Neutrophils % 83.6 % (37.0-80.0); Platelet Count 140 K/mm3 (142-424); Red Blood Count 4.24 M/mm3 (4.20-5.40); Red Cell Distribution Width 13.7 % (11.5-17.5)
[2017-10-17 06:56] LABS: Anion Gap 5.3 mEq/L (5-15); Blood Urea Nitrogen 47 mg/dL (7-18); Chloride 99 mmol/L (98-107); Creatinine Clearance Estimated 48 mL/min (0-300); Creatinine,Serum 1.06 mg/dL (0.55-1.02); Estimated Glomerular Filt Rate 50 ml/min (>60); GFR (African American) 60 ML/MIN (>60); Glucose 356 mg/dL (74-106); Potassium 3.3 mmoL/L (3.5-5.1); Sodium 141 mmol/L (136-145)
[2017-10-17 06:57] LABS: Carbon Dioxide 40 mmol/L (21.0-32.0)
--- NOTE | 2017-10-17 07:45 | PC.NURSE ---
HANDOFF REPORT GIVEN TO HARISH ONTIVEROS.
--- NOTE | 2017-10-17 07:51 | PC.NURSE ---
REPORT GIVEN BY JUANITA Kenney RN
--- NOTE | 2017-10-17 08:45 | HMH.ACPN2 ---
Internal Medicine - PN: Subj *Date: 10/17/17 *Time: 08:45 Interval history: Patient states she is feeling better today. She denies any shortness of air, however she is currently on nasal oxygen to eat breakfast and her sats are down to 88%. She states she is still coughing. Exam Vital signs and Labs for Last 24 Hours: Temp Pulse Resp BP Pulse Ox 97.9 F 71 20 145/74 92 L 10/17/17 07:58 10/17/17 07:58 10/17/17 07:58 10/17/17 07:58 10/17/17 07:58 Laboratory Results - last 24 hr 10/16/17 06:00: Total Counted 100, Neutrophils % (Manual) 88 H, Band Neutrophils % 2.0, Lymphocytes % (Manual) 8 L, Monocytes % (Manual) 2, Platelet Estimate Slight decrease 10/17/17 06:15: WBC 9.0 D, RBC 4.24, Hgb 12.5, Hct 38.5, MCV 90.8, MCH 29.6, MCHC 32.6, RDW 13.7, Plt Count 140 L, MPV 8.6, Neut % (Auto) 83.6 H, Lymph % (Auto) 9.7 L, [place] % (Auto) 5.6, Eos % (Auto) 0.2, Baso % (Auto) 0.9, Neut # (Auto) 7.5, Lymph # (Auto) 0.9, [place] # (Auto) 0.5, Eos # (Auto) 0.0, Baso # (Auto) 0.1 10/17/17 06:15: Sodium 141, Potassium 3.3 L, Chloride 99, Carbon Dioxide 40 H, Anion Gap 5.3, BUN 47 H, Creatinine 1.06 H, Estimated Creat Clear 48, Estimated GFR 50 L, Est GFR ( Amer) 60, Glucose 356 H I & O for Last 24 hours: Intake & Output 10/14/17 10/15/17 10/16/17 10/17/17 11:59 11:59 11:59 11:59 Intake Total 250 / 250 1050 / 1050 997 / 997 770 / 770 Output Total 1200 / 1200 4350 / 4350 800 / 800 1950 / 1950 Balance -950 / -950 -3300 / -3300 197 / 197 -1180 / -1180 Weight 159 lb 6.669 oz 159 lb 9 oz 162 lb 2 oz - Constitutional no acute distress - *Routine Respiratory Exam Present: rales (bilateral) - *Routine Cardiovascular Exam Present: RRR - *Routine Abdominal Exam Present: soft, normoactive bowel sounds. Absent: tenderness - *Routine Extremities Exam Absent: edema Assessment and Plan (1) Pneumonia Current visit: Yes Status: Acute Category: Medical Code(s): J18.9 - Pneumonia, unspecified organism (2) Hypercapnic respiratory failure Current visit: Yes Status: Acute Qualifiers: Chronicity: acute Qualified Code(s): J96.02 - Acute respiratory failure with hypercapnia Category: Medical Code(s): J96.92 - Respiratory failure, unspecified with hypercapnia (3) Atrial fibrillation Current visit: Yes Status: Acute Category: Medical Code(s): I48.91 - Unspecified atrial fibrillation (4) Hypokalemia Current visit: Yes Status: Acute Category: Medical Code(s): E87.6 - Hypokalemia - Assessment and plan all Dx Assessment and Plan for all problems:: WBC is normal today. Will continue abx. Will try to wean oxygen. Potassium is improving.
--- NOTE | 2017-10-17 08:48 | P.PN_ITS ---
Internal Medicine - PN: Subj *Date: 10/17/17 *Time: 08:45 Interval history: Patient states she is feeling better today. She denies any shortness of air, however she is currently on nasal oxygen to eat breakfast and her sats are down to 88%. She states she is still coughing. Exam Vital signs and Labs for Last 24 Hours: Temp Pulse Resp BP Pulse Ox 97.9 F 71 20 145/74 92 L 10/17/17 07:58 10/17/17 07:58 10/17/17 07:58 10/17/17 07:58 10/17/17 07:58 Laboratory Results - last 24 hr 10/16/17 06:00: Total Counted 100, Neutrophils % (Manual) 88 H, Band Neutrophils % 2.0, Lymphocytes % (Manual) 8 L, Monocytes % (Manual) 2, Platelet Estimate Slight decrease 10/17/17 06:15: WBC 9.0 D, RBC 4.24, Hgb 12.5, Hct 38.5, MCV 90.8, MCH 29.6, MCHC 32.6, RDW 13.7, Plt Count 140 L, MPV 8.6, Neut % (Auto) 83.6 H, Lymph % ( Auto) 9.7 L, [place] % (Auto) 5.6, Eos % (Auto) 0.2, Baso % (Auto) 0.9, Neut # ( Auto) 7.5, Lymph # (Auto) 0.9, [place] # (Auto) 0.5, Eos # (Auto) 0.0, Baso # (Auto ) 0.1 10/17/17 06:15: Sodium 141, Potassium 3.3 L, Chloride 99, Carbon Dioxide 40 H, Anion Gap 5.3, BUN 47 H, Creatinine 1.06 H, Estimated Creat Clear 48, Estimated GFR 50 L, Est GFR ( Amer) 60, Glucose 356 H I & O for Last 24 hours: Intake & Output 10/14/17 10/15/17 10/16/17 10/17/17 11:59 11:59 11:59 11:59 Intake Total 250 / 250 1050 / 1050 997 / 997 770 / 770 Output Total 1200 / 1200 4350 / 4350 800 / 800 1950 / 1950 Balance -950 / -950 -3300 / -3300 197 / 197 -1180 / -1180 Weight 159 lb 6.669 oz 159 lb 9 oz 162 lb 2 oz - Constitutional no acute distress - *Routine Respiratory Exam Present: rales (bilateral) - *Routine Cardiovascular Exam Present: RRR - *Routine Abdominal Exam Present: soft, normoactive bowel sounds. Absent: tenderness - *Routine Extremities Exam Absent: edema Assessment and Plan (1) Pneumonia Current visit: Yes Status: Acute Category: Medical Code(s): J18.9 - Pneumonia, unspecified organism (2) Hypercapnic respiratory failure Current visit: Yes Status: Acute Qualifiers: Chronicity: acute Qualified Code(s): J96.02 - Acute respiratory failure with hypercapnia Category: Medical Code(s): J96.92 - Respiratory failure, unspecified with hypercapnia (3) Atrial fibrillation Current visit: Yes Status: Acute Category: Medical Code(s): I48.91 - Unspecified atrial fibrillation (4) Hypokalemia Current visit: Yes Status: Acute Category: Medical Code(s): E87.6 - Hypokalemia - Assessment and plan all Dx Assessment and Plan for all problems:: WBC is normal today. Will continue abx. Will try to wean oxygen. Potassium is improving.
--- NOTE | 2017-10-17 18:30 | DIET.NUTRFU ---
Last glucose 356H. Pt is not a diabetic but is on steroids. PO intakes are 25-50% avg. Pt reports she does not have an appetite. She is drinking Carmine Ensure with good acceptance. Will change to glucerna shakes for lower sugar content. Monitor for acceptance and blood sugars. Diet is 2 gm sodium.
--- NOTE | 2017-10-17 19:40 | PC.NURSE ---
MS. BOYER IS AN 82 YEAR OLD WHITE FEMALE THAT PRESENTED TO THE HOSPITAL ON 10/11/17 WITH A DIAGNOSIS OF PNEUMONIA. SHE HAS DONE WELL TODAY. SHE HAS SAT UP IN THE CHAIR AND TOLERATED THIS WELL. SHE CONTINUES ON A PAIGE MASK AT 50% AND TOLERATED OXYGEN AT 4 LITERS PER NASAL CANULA DURING MEALS. SHE CONTINUES DUONEBS. DR. WOLF VISITED AT BEDSIDE THIS AM AND ORDERED AN INCENTIVE SPIROMETER AND SHE HAS DONE WELL RANGING FROM 750-1000. RESPIRATORY HAS INSTRUCTED HER ON THE USE OF THE INCENTIVE SPIROMETER. IV ANTIBIOTICS INFUSED ORDERED TODAY. SHE IS SCHEDULED TO HAVE A BMP IN THE MORNING 10/18/17. SHE HAS A BUTTS CATH TO STRAIGHT DRAIN THAT IS PATENT AND DRAINING LIGHT YELLOW URINE. WE ARE USING NYSTATIN POWDER TO BILATERAL BREAST FOLDS AND BILATERAL GROIN AREAS. THE REDNESS IN THESE AREAS HAVE SUBSIDED. FAMILY HAS BEEN AT BEDSIDE TODAY. LUNG ASSESSMENT REVEALS SCATTERED WHEEZES AND RHONCHI THROUGHOUT. NONPRODUCTIVE COUGH NOTED. SHE IS VERY PLEASANT AND ANSWERS QUESTIONS APPROPRIATELY. WILL CONTINUE TO MONITOR. HARISH ONTIVEROS, MSN, RN
--- NOTE | 2017-10-17 20:06 | PC.NURSE ---
REPORT GIVEN TO Barry DE LEÓN RN
[2017-10-18] VITALS (13 sets, daily range): BP systolic 121–159; BP diastolic 68–81; PULSE 68–84; RESP 20–27; TEMP 36.3–37.3; O2SAT 90–95
--- NOTE | 2017-10-18 05:09 | PC.NURSE ---
PT IS A&O x3. HAS RESTED WELL THIS SHIFT. LUNGS NOTED TO HAVE RHONCHI THROUGHOUT AND CRACKLES TO BILATERAL BASES. NO EDEMA NOTED. PT IS CURRENTLY ON 50% BIPAP PER RT. SAT IS 96% THIS AM. PT IS CURRENTLY SL. IV ABX ADMIN PER NOV. IV SITE CHANGED PER FACILITY PROTOCOL. SKIN NOTED TO HAVE ERYTHEMA TO FOLDS. PT IS EXCORIATED TO DARLENE AREA. PT IS PACED ON TELEMETRY WITH PERIODS OF AFIB. VS STABLE. WILL CONT. TO MONITOR.
--- NOTE | 2017-10-18 07:34 | PC.NURSE ---
REPORT RECEIVED FROM DANA DE LEÓN RN
[2017-10-18 08:00] LABS: Anion Gap 9.7 mEq/L (5-15); Blood Urea Nitrogen 51 mg/dL (7-18); Carbon Dioxide 37 mmol/L (21.0-32.0); Chloride 100 mmol/L (98-107); Creatinine Clearance Estimated 46 mL/min (0-300); Creatinine,Serum 1.09 mg/dL (0.55-1.02); Estimated Glomerular Filt Rate 48 ml/min (>60); GFR (African American) 58 ML/MIN (>60); Potassium 3.7 mmoL/L (3.5-5.1); Sodium 143 mmol/L (136-145)
[2017-10-18 08:14] LABS: Glucose 433 mg/dL (74-106)
--- NOTE | 2017-10-18 08:14 | HMH.ACPN2 ---
<Eri Brown - Last Filed: 10/18/17 08:14> Internal Medicine - PN: Subj *Date: 10/18/17 *Time: 08:14 Interval history: Pt states she is feeling worse today. She denies any pain. Exam Vital signs and Labs for Last 24 Hours: Temp Pulse Resp BP Pulse Ox 97.9 F 74 21 159/81 95 10/18/17 04:00 10/18/17 06:35 10/18/17 04:00 10/18/17 04:00 10/18/17 04:00 I & O for Last 24 hours: Intake & Output 10/15/17 10/16/17 10/17/17 10/18/17 11:59 11:59 11:59 11:59 Intake Total 1050 / 1050 997 / 997 870 / 870 600 / 600 Output Total 4350 / 4350 800 / 800 1950 / 1950 3100 / 3100 Balance -3300 / -3300 197 / 197 -1080 / -1080 -2500 / -2500 Weight 159 lb 6.669 oz 159 lb 9 oz 162 lb 2 oz 157 lb 6 oz Assessment and Plan (1) Pneumonia Current visit: Yes Status: Acute Category: Medical Code(s): J18.9 - Pneumonia, unspecified organism (2) Hypercapnic respiratory failure Current visit: Yes Status: Acute Qualifiers: Chronicity: acute Qualified Code(s): J96.02 - Acute respiratory failure with hypercapnia Category: Medical Code(s): J96.92 - Respiratory failure, unspecified with hypercapnia (3) Atrial fibrillation Current visit: Yes Status: Acute Category: Medical Code(s): I48.91 - Unspecified atrial fibrillation (4) Hypokalemia Current visit: Yes Status: Acute Category: Medical Code(s): E87.6 - Hypokalemia <Abbie Graves - Last Filed: 10/18/17 12:13> Internal Medicine - PN: Subj *Date: 10/18/17 *Time: 12:11 Interval history: She has started running high blood sugars. The SoluMedrol dose was decreased yesterday from 80 3 times daily to 60 twice daily. I will DC that today and order prednisone p.o. 20 mg. Potassium is normal today. Chest x-ray will be repeated. Physical therapy is ordered. Laboratory Tests 10/14/17 10/15/17 10/16/17 06:40 05:45 06:00 Potassium 2.6 L* D 2.8 L* Glucose 212 H 220 H 276 H 10/17/17 10/18/17 06:15 06:10 Potassium 3.3 L 3.7 Glucose 356 H 433 H* D Exam Vital signs and Labs for Last 24 Hours: Temp Pulse Resp BP Pulse Ox 99.2 F 77 20 129/75 91 L 10/18/17 08:14 10/18/17 11:30 10/18/17 08:14 10/18/17 08:14 10/18/17 08:14 Laboratory Results - last 24 hr 10/18/17 06:10: Sodium 143, Potassium 3.7, Chloride 100, Carbon Dioxide 37 H, Anion Gap 9.7, BUN 51 H, Creatinine 1.09 H, Estimated Creat Clear 46, Estimated GFR 48 L, Est GFR ( Amer) 58 L, Glucose 433 H* D I & O for Last 24 hours: Intake & Output 10/16/17 10/17/17 10/18/17 10/19/17 11:59 11:59 11:59 11:59 Intake Total 997 / 997 870 / 870 960 / 960 Output Total 800 / 800 1950 / 1950 3100 / 3100 Balance 197 / 197 -1080 / -1080 -2140 / -2140 Weight 159 lb 9 oz 162 lb 2 oz 157 lb 6 oz Assessment and Plan (1) Pneumonia Current visit: Yes Status: Acute Category: Medical Code(s): J18.9 - Pneumonia, unspecified organism (2) Hypercapnic respiratory failure Current visit: Yes Status: Acute Qualifiers: Chronicity: acute Qualified Code(s): J96.02 - Acute respiratory failure with hypercapnia Category: Medical Code(s): J96.92 - Respiratory failure, unspecified with hypercapnia (3) Atrial fibrillation Current visit: Yes Status: Acute Category: Medical Code(s): I48.91 - Unspecified atrial fibrillation (4) Hypokalemia Current visit: Yes Status: Acute Category: Medical Code(s): E87.6 - Hypokalemia
--- NOTE | 2017-10-18 12:06 | XR_ITS ---
XR chest 2V HISTORY: Shortness of breath ITS.REASON: Bronchitis ORDERING PHYSICIAN: Abbie Graves MD PATIENT AGE: 82 years COMPARISON: 10/15/2017 FINDINGS: There is cardiomegaly without failure. Pacemaker device remains in place. The bilateral pneumonia has improved since a previous exam. There remains some atelectasis or infiltrate in the right lung base. There are degenerative changes in the thoracic spine. IMPRESSION: 1. Improved bilateral pneumonia with some residual atelectasis or infiltrate in the right lung base. 2. Cardiomegaly.
[2017-10-18 13:07] LABS: Glucose,Random 552 mg/dL (70-110)
[2017-10-18 14:41] LABS: POC Glucose,Bedside 560 mg/dL
[2017-10-18 16:56] LABS: POC Glucose,Bedside 360 mg/dL
--- NOTE | 2017-10-18 18:25 | PC.NURSE ---
PATIENT IS RESTING IN BED AT THIS TIME. SHE SAT IN CHAIR FOR A FEW HOURS TODAY VISITING WITH FAMILY. O2 HAS BEEN TITRATED TO 3LNC THROUGH MOST OF THE SHIFT. DENIES PAIN AT THIS TIME. O2 SAT IS 92 ON 3LNC. PATIENT STATES THAT THE BUTTS IS BOTHERING HER. PATIENT WAS STARTED ON FSBS AND INSULIN TODAY. LUNGS HAVE RHONCHI AND WHEEZES T/O. A&0X3. CALL LIGHT WITHIN REACH WILL CONTINUE TO MONITOR
--- NOTE | 2017-10-18 19:14 | PC.NURSE ---
REPORT GIVEN TO DANA DE LEÓN RN
[2017-10-19] VITALS (11 sets, daily range): BP systolic 113–148; BP diastolic 54–77; PULSE 60–91; RESP 18–30; TEMP 36.3–37.1; O2SAT 90–95
[2017-10-19 00:16] LABS: POC Glucose,Bedside 311 mg/dL
--- NOTE | 2017-10-19 03:51 | PC.NURSE ---
PT IS A&O X3 AND HAS RESTED WELL THROUGHOUT THE NIGHT. SHE HAS REMAINED ON 3 L NC. O2 SAT HAS REMAINED IN THE MID 90'S AND IS 94% AT THIS TIME. SHE CONT. TO HAVE RHONCHI THROUGHOUT, CRACKLES NOTED IN BILATERAL BASES, MD NOTIFIED. PT HAS NOT COMPLAINED OF ANY SOA. ABX ADMIN PER NOV. FSBS WAS 311 THIS EVENING, 8 UNITS WAS ADMIN. PT CONT TO HAVE ERYTHEMA TO FOLDS OF SKIN AND DARLENE AREA. VS HAS REMAINED STABLE. PT REMAINS REMAINS PACED WITH PERIODS OF AFIB ON TELEMETRY. WILL CONT. TO MONITOR.
--- NOTE | 2017-10-19 07:52 | PC.NURSE ---
0715 REPORT RECEIVED FROM DANA DE LEÓN RN
--- NOTE | 2017-10-19 08:32 | HMH.ACPN2 ---
Internal Medicine - PN: Subj *Date: 10/19/17 *Time: 08:32 Interval history: Patient states she is feeling slightly better today. Has been able to get off of the mask and on to nasal oxygen. She is still coughing and short of breath. She still hurts in her ribs from coughing. She was able to sleep a little more last night and did eat some of her breakfast this morning. Exam Vital signs and Labs for Last 24 Hours: Temp Pulse Resp BP Pulse Ox 98.2 F 68 19 129/77 93 L 10/19/17 04:00 10/19/17 06:10 10/19/17 04:00 10/19/17 04:00 10/19/17 08:00 Laboratory Results - last 24 hr 10/18/17 11:45: POC Glucose 560 10/18/17 12:35: Random Glucose 552 H* 10/18/17 16:38: POC Glucose 360 10/18/17 21:07: POC Glucose 311 I & O for Last 24 hours: Intake & Output 10/16/17 10/17/17 10/18/17 10/19/17 11:59 11:59 11:59 11:59 Intake Total 997 / 997 870 / 870 1060 / 1060 870 / 870 Output Total 800 / 800 1950 / 1950 3100 / 3100 2750 / 2750 Balance 197 / 197 -1080 / -1080 -2040 / -2040 -1880 / -1880 Weight 159 lb 9 oz 162 lb 2 oz 157 lb 6 oz 155 lb 2 oz Radiology Reports for the Last 24 Hours: CXR IMPRESSION: 1. Improved bilateral pneumonia with some residual atelectasis or infiltrate in the right lung base. 2. Cardiomegaly. - Constitutional no acute distress - *Routine Respiratory Exam Present: rhonchi, wheezes - *Routine Cardiovascular Exam Present: RRR - *Routine Abdominal Exam Present: soft, normoactive bowel sounds. Absent: tenderness - *Routine Extremities Exam Absent: edema Assessment and Plan (1) Pneumonia Current visit: Yes Status: Acute Category: Medical Code(s): J18.9 - Pneumonia, unspecified organism (2) Hypercapnic respiratory failure Current visit: Yes Status: Acute Qualifiers: Chronicity: acute Qualified Code(s): J96.02 - Acute respiratory failure with hypercapnia Category: Medical Code(s): J96.92 - Respiratory failure, unspecified with hypercapnia (3) Atrial fibrillation Current visit: Yes Status: Acute Category: Medical Code(s): I48.91 - Unspecified atrial fibrillation (4) Hypokalemia Current visit: Yes Status: Acute Category: Medical Code(s): E87.6 - Hypokalemia - Assessment and plan all Dx Assessment and Plan for all problems:: Patient's sputum grew yeast. Will discuss with Dr. Graves. Will continue nasal oxygen. CXR shows improvement. Patient has been switched to oral prednisone so hopefully glucose will decrease. Will increase sliding scale to medium intensity.
--- NOTE | 2017-10-19 11:48 | HMH.PTEV ---
Physical Therapy Evaluation Rehab PT IP Evaluation Start: 10/18/17 12:07 Freq: ONCE Status: Active Protocol: Document 10/19/17 11:43 PHORNE (Rec: 10/19/17 11:48 PHORNE [id number]) Subjective/History History History 82 yof adm to [facility] with CAP, ID , and weakness. Subjective Subjective Pt reports feeling sleepy and tired, but better this am. Rehab PT IP Eval Objective Appearance Patient Behavior Appropriate Patient Orientation Person Place Time Difficulty following instructions none Speech Pattern Clear Appropriate Ambulation Patient Able to Ambulate Yes Ambulation Observation IP General Gait Pattern Observation Wide Based Gait Shuffling Step Ambulation Distance (feet) 4 Ambulation Assistive Device Rolling Walker Balance Ability to Arise Able, uses arms to help Sitting Balance Steady, safe Standing Balance Steady, wide stance Dynamic Sitting Balance Ability Good Dynamic Standing Balance Ability Fair Transfers Bed Transfer Ability Minimal x 1 (25% assist) Chair Transfer Ability Minimal x 1 (25% assist) Sit to Stand Bed Transfer Ability Minimal x 1 (25% assist) Sit to Stand Chair Transfer Ability Minimal x 1 (25% assist) ROM All Extremities PT ROM Status WFL MMT All Extremities PT MMT WFL Rehab PT IP prob,goals,plan Problems Date of Evaluation: 10/19/17 PT IP Problems Bed Mobility Transfers Gait Rehab Potential Rehab Potential Good Equipment Needs Assistive Devices Rolling / Wheeled Walker Plan PT Intervention Plan Bed Mobility Transfers Gait Therapeutic Exercise PT Plan Frequency BID Duration LOS Discharge Goals Bed Transfer Ability Contact Guard/Hand Hold Sit to Stand Chair Transfer Ability Contact Guard/Hand Hold Ambulation Assistive Device Rolling Walker Ambulation Distance (feet) 20 Discharge Plan PT Discharge Plan Pt is most appropriate for rehab placement at this time once medically stable. G -code Required Yes Eval Complexity Eval Charge Codes 53298 - Moderate Complexity G Codes PT Current Status Mobility PT Current Status Modifier CJ-At least 20% but less
[2017-10-19 11:51] LABS: POC Glucose,Bedside 223 mg/dL
[2017-10-19 11:51] LABS: POC Glucose,Bedside 180 mg/dL
--- NOTE | 2017-10-19 16:02 | DIET.NUTRFU ---
Elevated glucose 552, insulin coverage was changed to medium intenstiy. Pt is on low sodium diet with strawberry glucerna shakes bid for poor appetite. Good acceptance to shakes. Will add 1800 ada diet to low sodium diet. Will monitor po intakes and blood sugars.
[2017-10-19 17:14] LABS: POC Glucose,Bedside 320 mg/dL
--- NOTE | 2017-10-19 19:05 | PC.NURSE ---
PATIENT SAST IN CHAIR FOR A FEW HOURS TODAY. SHE WALKED WITH PT TO THE SHOWER AND THE AIDE ASSISTED HER WITH HER SHOWER. LUNGS STILL HAVE WHEEZES AND SOME LIGHT CRACKLES. A&OX3. DENIES PAIN AT THIS TIME. 3LNC. PATIENT STATES SHE IS FEELING MUCH BETTER. CALL LIGHT WITHIN REACH WILL CONTINE TO MONITOR
[2017-10-19 21:25] LABS: POC Glucose,Bedside 243 mg/dL
[2017-10-20] VITALS (15 sets, daily range): BP systolic 97–129; BP diastolic 47–81; PULSE 59–90; RESP 18–31; TEMP 36.6–36.8; O2SAT 91–96
--- NOTE | 2017-10-20 04:35 | PC.NURSE ---
PT HAS SLEPT THIS SHIFT. PT REQUIRES ASSIST WITH TURNING. CONTINUES ON 3L PER NC. NO SOB REPORTED. PACED WITH UNDERLYING ATRIAL FIB NOTED ON TELEMETRY. NO COUGH NOTED. CONTINUES WITH BUTTS CATH TO BSD. PT HAS BEEN ALERT AND ORIENTED.
[2017-10-20 06:29] LABS: POC Glucose,Bedside 130 mg/dL
[2017-10-20 06:36] LABS: Basophils % 0.2 % (0.1-2.0); Eosinophils % 0.2 % (0.1-12.0); Hematocrit 39.1 % (37.0-47.0); Hemoglobin 12.9 g/dL (12.2-16.2); Lymphocytes # 2.2 K/mm3 (0.7-4.5); Lymphocytes % 16.1 K/mm3 (10-50); Mean Corpuscular HGB Conc 33.1 g/dL (31.8-35.4); Mean Corpuscular Hemoglobin 29.6 pg (27.0-31.2); Mean Corpuscular Volume 89.5 fl (81-99); Mean Platelet Volume 9.1 fl (7.4-10.4); Monocytes # 0.4 K/mm3 (0.1-1.0); Monocytes % 3.2 % (1.7-9.3); Neutrophils % 80.3 % (37.0-80.0); Platelet Count 190 K/mm3 (142-424); Red Blood Count 4.38 M/mm3 (4.20-5.40); Red Cell Distribution Width 13.6 % (11.5-17.5); White Blood Count 13.6 K/mm3 (4.8-10.8)
[2017-10-20 06:49] LABS: Anion Gap 9.5 mEq/L (5-15); Blood Urea Nitrogen 45 mg/dL (7-18); Carbon Dioxide 31 mmol/L (21.0-32.0); Chloride 102 mmol/L (98-107); Creatinine Clearance Estimated 50 mL/min (0-300); Creatinine,Serum 0.97 mg/dL (0.55-1.02); Estimated Glomerular Filt Rate 55 ml/min (>60); GFR (African American) 67 ML/MIN (>60); Glucose 148 mg/dL (74-106); Potassium 4.5 mmoL/L (3.5-5.1); Sodium 138 mmol/L (136-145)
--- NOTE | 2017-10-20 07:47 | PC.NURSE ---
REPORT OBTAINED FROM ELLIE ZAIDI
--- NOTE | 2017-10-20 15:20 | HMH.ACPN2 ---
Internal Medicine - PN: Subj *Date: 10/20/17 *Time: 15:20 Interval history: She was seen this morning. She continues to slowly improve. I anticipate that she will be ready for discharge Sunday. She is still receiving physical therapy attention. Exam Vital signs and Labs for Last 24 Hours: Temp Pulse Resp BP Pulse Ox 98.0 F 70 18 120/70 96 10/20/17 12:34 10/20/17 12:34 10/20/17 12:34 10/20/17 12:34 10/20/17 12:34 Laboratory Results - last 24 hr 10/19/17 16:37: POC Glucose 320 10/19/17 20:42: POC Glucose 243 10/20/17 05:55: WBC 13.6 H D, RBC 4.38, Hgb 12.9, Hct 39.1, MCV 89.5, MCH 29.6, MCHC 33.1, RDW 13.6, Plt Count 190 D, MPV 9.1, Neut % (Auto) 80.3 H, Lymph % (Auto) 16.1, [place] % (Auto) 3.2, Eos % (Auto) 0.2, Baso % (Auto) 0.2, Neut # (Auto) 11.0 H, Lymph # (Auto) 2.2, [place] # (Auto) 0.4, Eos # (Auto) 0.0, Baso # (Auto) 0.0 10/20/17 05:55: Sodium 138, Potassium 4.5 D, Chloride 102, Carbon Dioxide 31, Anion Gap 9.5, BUN 45 H, Creatinine 0.97, Estimated Creat Clear 50, Estimated GFR 55 L, Est GFR ( Amer) 67, Glucose 148 H 10/20/17 06:12: POC Glucose 130 I & O for Last 24 hours: Intake & Output 10/18/17 10/19/17 10/20/17 10/21/17 11:59 11:59 11:59 11:59 Intake Total 1060 / 1060 870 / 870 890 / 890 240 / 240 Output Total 3100 / 3100 2750 / 2750 1850 / 1850 Balance -2040 / -2040 -1880 / -1880 -960 / -960 240 / 240 Weight 157 lb 6 oz 155 lb 2 oz 154 lb 7 oz - Constitutional no acute distress - *Routine Respiratory Exam Present: decreased breath sounds, rales Comments: Cough persists - *Routine Cardiovascular Exam Present: RRR - *Routine Abdominal Exam Present: soft. Absent: tenderness Assessment and Plan (1) Pneumonia Current visit: Yes Status: Acute Category: Medical Code(s): J18.9 - Pneumonia, unspecified organism (2) Hypercapnic respiratory failure Current visit: Yes Status: Acute Qualifiers: Chronicity: acute Qualified Code(s): J96.02 - Acute respiratory failure with hypercapnia Category: Medical Code(s): J96.92 - Respiratory failure, unspecified with hypercapnia (3) Atrial fibrillation Current visit: Yes Status: Acute Category: Medical Code(s): I48.91 - Unspecified atrial fibrillation (4) Hypokalemia Current visit: Yes Status: Acute Category: Medical Code(s): E87.6 - Hypokalemia - Assessment and plan all Dx Assessment and Plan for all problems:: Continue present care.
--- NOTE | 2017-10-20 15:23 | P.PN_ITS ---
Internal Medicine - PN: Subj *Date: 10/20/17 *Time: 15:20 Interval history: She was seen this morning. She continues to slowly improve. I anticipate that she will be ready for discharge Sunday. She is still receiving physical therapy attention. Exam Vital signs and Labs for Last 24 Hours: Temp Pulse Resp BP Pulse Ox 98.0 F 70 18 120/70 96 10/20/17 12:34 10/20/17 12:34 10/20/17 12:34 10/20/17 12:34 10/20/17 12:34 Laboratory Results - last 24 hr 10/19/17 16:37: POC Glucose 320 10/19/17 20:42: POC Glucose 243 10/20/17 05:55: WBC 13.6 H D, RBC 4.38, Hgb 12.9, Hct 39.1, MCV 89.5, MCH 29.6, MCHC 33.1, RDW 13.6, Plt Count 190 D, MPV 9.1, Neut % (Auto) 80.3 H, Lymph % ( Auto) 16.1, [place] % (Auto) 3.2, Eos % (Auto) 0.2, Baso % (Auto) 0.2, Neut # (Auto ) 11.0 H, Lymph # (Auto) 2.2, [place] # (Auto) 0.4, Eos # (Auto) 0.0, Baso # (Auto ) 0.0 10/20/17 05:55: Sodium 138, Potassium 4.5 D, Chloride 102, Carbon Dioxide 31, Anion Gap 9.5, BUN 45 H, Creatinine 0.97, Estimated Creat Clear 50, Estimated GFR 55 L, Est GFR ( Amer) 67, Glucose 148 H 10/20/17 06:12: POC Glucose 130 I & O for Last 24 hours: Intake & Output 10/18/17 10/19/17 10/20/17 10/21/17 11:59 11:59 11:59 11:59 Intake Total 1060 / 1060 870 / 870 890 / 890 240 / 240 Output Total 3100 / 3100 2750 / 2750 1850 / 1850 Balance -2040 / -2040 -1880 / -1880 -960 / -960 240 / 240 Weight 157 lb 6 oz 155 lb 2 oz 154 lb 7 oz - Constitutional no acute distress - *Routine Respiratory Exam Present: decreased breath sounds, rales Comments: Cough persists - *Routine Cardiovascular Exam Present: RRR - *Routine Abdominal Exam Present: soft. Absent: tenderness Assessment and Plan (1) Pneumonia Current visit: Yes Status: Acute Category: Medical Code(s): J18.9 - Pneumonia, unspecified organism (2) Hypercapnic respiratory failure Current visit: Yes Status: Acute Qualifiers: Chronicity: acute Qualified Code(s): J96.02 - Acute respiratory failure with hypercapnia Category: Medical Code(s): J96.92 - Respiratory failure, unspecified with hypercapnia (3) Atrial fibrillation Current visit: Yes Status: Acute Category: Medical Code(s): I48.91 - Unspecified atrial fibrillation (4) Hypokalemia Current visit: Yes Status: Acute Category: Medical Code(s): E87.6 - Hypokalemia - Assessment and plan all Dx Assessment and Plan for all problems:: Continue present care.
[2017-10-20 17:08] LABS: POC Glucose,Bedside 383 mg/dL
--- NOTE | 2017-10-20 17:51 | PC.NURSE ---
patient has had a good day this shift. ate and drank protein shakes well. some leaking with wells catheter. some sob at times. remains on 4 l o2. sating about 94%. paced on the monitor. keegan through out lung oreilly. vss will continue to moniotr.
--- NOTE | 2017-10-20 19:57 | PC.NURSE ---
report give to tyrone quintana
[2017-10-21] VITALS (17 sets, daily range): BP systolic 90–134; BP diastolic 50–78; PULSE 60–84; RESP 20–28; TEMP 36.3–36.8; O2SAT 89–97
[2017-10-21 00:59] LABS: POC Glucose,Bedside 335 mg/dL
--- NOTE | 2017-10-21 03:26 | PC.NURSE ---
pt did not want to be turned. rn notified
--- NOTE | 2017-10-21 04:15 | PC.NURSE ---
C/O A STINGING SENSATION IN RLE, ADMINISTERED PRN PAIN MED, PT STATED IT FEELS BETTER. , ON REASSESSMENT FOLLOWING ADMINISTRATION OF MED. IN BEGINNING OF SHIFT, OXYGEN WAS SET AT 4LNC. RN CURRENTLY HAS OXYGEN WEANED TO 1LNC, PT TOLERATING 1LNC WELL WITH O2 SATS NOTED 90'S. DID ATTEMPT TO WEAN TO RA, O2SAT OF 88%-90% NOTED (PT SLEEPING). WILL ATTEMPT TO WEAN TO RA AGAIN ONCE PT IS AWAKE. AFIB/ PACED RHYTHMS NOTED PER ENVIRONMENTAL DESIGNER. REDNESS NOTED ON COCCYX AND UNDERNEATH BREASTS/SKIN FOLDS. TOPICAL POWDER APPLIED PER MAR TO REDDENED AREAS. RHONCHI LUNG SOUNDS NOTED PER AUSCULTATION. TACHYPNEIC EPISODES NOTED FOLLOWING EXERTION (BATH/TURNED AND REPOSITIONED), ONCE PT IS RESTING, RR WNL. VSS. WILL CONTINUE TO MONITOR.
--- NOTE | 2017-10-21 05:52 | PC.NURSE ---
PT DID NOT WANT TO BE TURNED. NURSE WAS NOTIFIED
[2017-10-21 06:39] LABS: POC Glucose,Bedside 138 mg/dL
--- NOTE | 2017-10-21 10:38 | P.PN_ITS ---
Internal Medicine - PN: Subj *Date: 10/21/17 *Time: 10:34 Interval history: She feels much better overall. She still has a deep cough which can be productive her son is visiting her. He suggests that she be discharged to [facility] for their rehab facility. This would be an excellent idea. Care management was informed. Exam Vital signs and Labs for Last 24 Hours: Temp Pulse Resp BP Pulse Ox 97.4 F L 63 28 H 94/50 91 L 10/21/17 08:00 10/21/17 08:00 10/21/17 08:00 10/21/17 08:00 10/21/17 08:40 Laboratory Results - last 24 hr 10/20/17 16:51: POC Glucose 383 10/20/17 21:39: POC Glucose 335 10/21/17 06:27: POC Glucose 138 I & O for Last 24 hours: Intake & Output 10/18/17 10/19/17 10/20/17 10/21/17 11:59 11:59 11:59 11:59 Intake Total 1060 / 1060 870 / 870 890 / 890 770 / 770 Output Total 3100 / 3100 2750 / 2750 1850 / 1850 2100 / 2100 Balance -2040 / -2040 -1880 / -1880 -960 / -960 -1330 / -1330 Weight 157 lb 6 oz 155 lb 2 oz 154 lb 7 oz 153 lb 6 oz - Constitutional no acute distress - *Routine HEENT Exam Eye: Present: PERRL ENT: Present: mucous membranes moist - *Routine Respiratory Exam Comments: Good air movement bilaterally. There are still rhonchi present bilaterally and some basilar rales. Today it seems more prominent on the right than the left. - *Routine Cardiovascular Exam Present: irregular rhythm (Controlled) - *Routine Abdominal Exam Present: soft. Absent: tenderness - *Routine Neurological Exam Present: alert, oriented X3 Assessment and Plan (1) Pneumonia Current visit: Yes Status: Acute Category: Medical Code(s): J18.9 - Pneumonia, unspecified organism (2) Hypercapnic respiratory failure Current visit: Yes Status: Acute Qualifiers: Chronicity: acute Qualified Code(s): J96.02 - Acute respiratory failure with hypercapnia Category: Medical Code(s): J96.92 - Respiratory failure, unspecified with hypercapnia (3) Atrial fibrillation Current visit: Yes Status: Acute Category: Medical Code(s): I48.91 - Unspecified atrial fibrillation (4) Hypokalemia Current visit: Yes Status: Acute Category: Medical Code(s): E87.6 - Hypokalemia Is the patient receiving the right drug, dose, and route?: Yes Could a more targeted ABx be ordered?: No 7
[2017-10-21 11:07] LABS: Basophils % 0.1 % (0.1-2.0); Eosinophils # 0.1 K/mm3 (0.0-0.4); Eosinophils % 0.3 % (0.1-12.0); Hematocrit 40.7 % (37.0-47.0); Hemoglobin 13.5 g/dL (12.2-16.2); Lymphocytes # 1.8 K/mm3 (0.7-4.5); Lymphocytes % 9.8 K/mm3 (10-50); Mean Corpuscular HGB Conc 33.3 g/dL (31.8-35.4); Mean Corpuscular Hemoglobin 29.7 pg (27.0-31.2); Mean Corpuscular Volume 89.2 fl (81-99); Mean Platelet Volume 9.4 fl (7.4-10.4); Monocytes # 0.6 K/mm3 (0.1-1.0); Monocytes % 3.6 % (1.7-9.3); Neutrophils # 15.5 K/mm3 (1.8-7.8); Neutrophils % 86.2 % (37.0-80.0); Platelet Count 234 K/mm3 (142-424); Red Blood Count 4.56 M/mm3 (4.20-5.40); Red Cell Distribution Width 13.5 % (11.5-17.5)
[2017-10-21 11:09] LABS: MANUAL DIFFERENTIAL MANUAL DIFFERENTIAL (MANUAL DIFF)
[2017-10-21 11:12] LABS: Anion Gap 9.6 mEq/L (5-15); Blood Urea Nitrogen 42 mg/dL (7-18); Carbon Dioxide 30 mmol/L (21.0-32.0); Chloride 99 mmol/L (98-107); Creatinine Clearance Estimated 48 mL/min (0-300); Creatinine,Serum 0.88 mg/dL (0.55-1.02); Estimated Glomerular Filt Rate 62 ml/min (>60); GFR (African American) 75 ML/MIN (>60); Glucose 218 mg/dL (74-106); Potassium 4.6 mmoL/L (3.5-5.1); Sodium 134 mmol/L (136-145)
[2017-10-21 11:30] LABS: Lymphocytes % 6 % (10-50); Monocytes % 5 % (2-9); Neutrophils % 88 % (42-76); Platelet Estimate Normal; RBC Morphology Normal; Total Cells Counted 100
[2017-10-21 13:14] LABS: POC Glucose,Bedside 235 mg/dL
[2017-10-21 13:14] LABS: POC Glucose,Bedside 215 mg/dL
[2017-10-21 17:54] LABS: Glucose,Random 490 mg/dL (70-110)
--- NOTE | 2017-10-21 18:00 | PC.NURSE ---
CALLED DR WOLF TO REPORT FSBS OF 527. ORDERED STAT GLUCOSE WITH RETURN OF 490. OKAY WITH JUST GIVING THE 15 UNITS ORDERED.
--- NOTE | 2017-10-21 19:49 | PC.NURSE ---
TOOK PATIENT BUTTS OUT THIS SHIFT. NO DIFFICULTY NOTED. REMAINS ON 1 L. REQUIRES TWO ASSIST WITH AMBULATION
[2017-10-22] VITALS (14 sets, daily range): BP systolic 98–182; BP diastolic 52–62; PULSE 60–80; RESP 16–22; TEMP 36.1–36.8; O2SAT 87–95
--- NOTE | 2017-10-22 06:16 | PC.NURSE ---
NO COMPLAINTS STATED. WEANED OXYGEN TO RA AND PT TOLERATED WELL. RHONCHI NOTED ON AUSCULTATION OF LUNG SOUNDS. INCONTINENCE NOTED. PINK AREAS NOTED IN SKIN FOLDS AND UNDERNEATH BREASTS. AFIB/PACED RHYTHMS NOTED ON ELECTRICAL ELECTRONICS ENGINEERS. VSS. WILL CONTINUE TO MONITOR.
[2017-10-22 06:48] LABS: POC Glucose,Bedside 280 mg/dL
[2017-10-22 06:48] LABS: POC Glucose,Bedside 98 mg/dL
--- NOTE | 2017-10-22 08:58 | HMH.ACPN2 ---
Internal Medicine - PN: Subj *Date: 10/22/17 *Time: 08:58 Interval history: Patient states that she feels well; she has been off O2 all night; she is not SOB; she denies CP ; she does not eat much; she states that her bowels are moving and she is voiding; She sat up in the chair yesterday Exam Vital signs and Labs for Last 24 Hours: Temp Pulse Resp BP Pulse Ox 97.1 F L 64 22 117/60 93 L 10/22/17 04:00 10/22/17 06:18 10/22/17 04:00 10/22/17 04:00 10/22/17 06:18 Laboratory Results - last 24 hr 10/20/17 10:53: POC Glucose 235 10/21/17 10:55: WBC 18.0 H D, RBC 4.56, Hgb 13.5, Hct 40.7, MCV 89.2, MCH 29.7, MCHC 33.3, RDW 13.5, Plt Count 234, MPV 9.4, Neut % (Auto) 86.2 H, Lymph % (Auto) 9.8 L, [place] % (Auto) 3.6, Eos % (Auto) 0.3, Baso % (Auto) 0.1, Neut # (Auto) 15.5 H, Lymph # (Auto) 1.8, [place] # (Auto) 0.6, Eos # (Auto) 0.1, Baso # (Auto) 0.0, Total Counted 100, Neutrophils % (Manual) 88 H, Lymphocytes % (Manual) 6 L, Atypical Lymphs % 1.0, Monocytes % (Manual) 5, Platelet Estimate Normal, RBC Morphology Normal 10/21/17 10:55: Sodium 134 L, Potassium 4.6, Chloride 99, Carbon Dioxide 30, Anion Gap 9.6, BUN 42 H, Creatinine 0.88, Estimated Creat Clear 48, Estimated GFR 62, Est GFR ( Amer) 75, Glucose 218 H 10/21/17 11:11: POC Glucose 215 10/21/17 17:37: Random Glucose 490 H 10/21/17 20:32: POC Glucose 280 10/22/17 06:32: POC Glucose 98 I & O for Last 24 hours: Intake & Output 10/19/17 10/20/17 10/21/17 10/22/17 11:59 11:59 11:59 11:59 Intake Total 870 / 870 890 / 890 770 / 770 600 / 600 Output Total 2750 / 2750 1850 / 1850 2099 / 2099 Balance -1880 / -1880 -960 / -960 -1330 / -1330 600 / 600 Weight 155 lb 2 oz 154 lb 7 oz 153 lb 6 oz 152 lb 7 oz - Constitutional no acute distress - *Routine Respiratory Exam Comments: bilateral rhonchi and some scattered wheezing; she has a congested cough - *Routine Cardiovascular Exam Present: RRR - *Routine Abdominal Exam Present: soft, normoactive bowel sounds. Absent: tenderness, distended - *Routine Extremities Exam Absent: edema, calf tenderness Assessment and Plan (1) Pneumonia Current visit: Yes Status: Acute Category: Medical Code(s): J18.9 - Pneumonia, unspecified organism (2) Hypercapnic respiratory failure Current visit: Yes Status: Acute Qualifiers: Chronicity: acute Qualified Code(s): J96.02 - Acute respiratory failure with hypercapnia Category: Medical Code(s): J96.92 - Respiratory failure, unspecified with hypercapnia (3) Atrial fibrillation Current visit: Yes Status: Acute Category: Medical Code(s): I48.91 - Unspecified atrial fibrillation (4) Hypokalemia Current visit: Yes Status: Acute Category: Medical Code(s): E87.6 - Hypokalemia - Assessment and plan all Dx Assessment and Plan for all problems:: Possibly going to rehab facility soon 7
--- NOTE | 2017-10-22 14:11 | SW/DCPLANNER ---
Information was sent to [facility]She has been to accepted to [facility] and will go there today for skilled rehab services...Family and patient are in agreement of the plan..
--- NOTE | 2017-10-22 15:39 | DIET.NUTRFU ---
PO intakes avg 45% for past 5 meals. Diet is low sodium, diabetic. Random glucose 490. reddened coccyx per nursing. Pt reports appetite is slowly improving. Decrease glucerna shakes to one a day.
--- NOTE | 2017-10-22 20:57 | PC.NURSE ---
pt has teds off at this time
[2017-10-22 21:17] LABS: POC Glucose,Bedside 527 mg/dL
[2017-10-22 21:18] LABS: POC Glucose,Bedside 272 mg/dL
--- NOTE | 2017-10-22 22:15 | PC.NURSE ---
luis a hose off at this time
[2017-10-23] VITALS (7 sets, daily range): BP systolic 103–113; BP diastolic 53–69; PULSE 60–78; RESP 20–22; TEMP 36.3–36.6; O2SAT 85–92
--- NOTE | 2017-10-23 03:05 | PC.NURSE ---
NO COMPLAINTS STATED. TOLERATING RA WELL. RHONCHI LUNG SOUNDS AUSCULTATED. MINIMAL PINK COLORATION NOTED BENEATH BREASTS AND ABDOMINAL SKIN FOLDS. NYSTATIN POWDER APPLIED PER MAR. VSS. WILL CONTINUE TO MONITOR.
--- NOTE | 2017-10-23 03:36 | PC.NURSE ---
AFIB/PACED RHYTHM NOTED PER MEDIA BUYER.
[2017-10-23 06:33] LABS: POC Glucose,Bedside 106 mg/dL
--- NOTE | 2017-10-23 06:58 | PC.NURSE ---
while patient is sleeping 02 drops to 85% when awake and talking they stay between 91 and 92%
--- NOTE | 2017-10-23 09:05 | HMH.ACPN2 ---
Internal Medicine - PN: Subj *Date: 10/23/17 *Time: 09:05 Interval history: Patient continues to feel better daily; she feels weak; she had difficulty with walking to the chair yesterday; states she had to have her oxygen on for a little while this morning; right now she denies shortness of breath and chest pain; she continues with a cough although it is less coarse; is voiding without difficulty; her bowels are moving; states she may be eating a little bit better although she does not eat much even at home; she is packed up and ready to go to [facility] [place] Exam Vital signs and Labs for Last 24 Hours: Temp Pulse Resp BP Pulse Ox 97.8 F 67 20 110/69 92 L 10/23/17 08:00 10/23/17 08:00 10/23/17 08:00 10/23/17 08:00 10/23/17 08:00 Laboratory Results - last 24 hr 10/21/17 17:23: POC Glucose 527 10/22/17 20:39: POC Glucose 272 10/23/17 06:19: POC Glucose 106 I & O for Last 24 hours: Intake & Output 10/20/17 10/21/17 10/22/17 10/23/17 11:59 11:59 11:59 11:59 Intake Total 890 / 890 770 / 770 840 / 840 960 / 960 Output Total 1850 / 1850 2100 / 2100 Balance -960 / -960 -1330 / -1330 840 / 840 960 / 960 Weight 154 lb 7 oz 153 lb 6 oz 152 lb 7 oz 151 lb 1 oz - Constitutional no acute distress Comments: Lying comfortably in the bed - *Routine Respiratory Exam Comments: Bilateral crackles and periodic wheezing of to mid lung oreilly bilaterally - *Routine Cardiovascular Exam Present: RRR - *Routine Abdominal Exam Present: soft, normoactive bowel sounds. Absent: tenderness, distended - *Routine Extremities Exam Present: full ROM. Absent: edema Comments: Bilateral calf tenderness - *Routine Neurological Exam Present: alert, oriented X3 Assessment and Plan (1) Pneumonia Current visit: Yes Status: Acute Category: Medical Code(s): J18.9 - Pneumonia, unspecified organism (2) Hypercapnic respiratory failure Current visit: Yes Status: Acute Qualifiers: Chronicity: acute Qualified Code(s): J96.02 - Acute respiratory failure with hypercapnia Category: Medical Code(s): J96.92 - Respiratory failure, unspecified with hypercapnia (3) Atrial fibrillation Current visit: Yes Status: Acute Category: Medical Code(s): I48.91 - Unspecified atrial fibrillation (4) Hypokalemia Current visit: Yes Status: Acute Category: Medical Code(s): E87.6 - Hypokalemia - Assessment and plan all Dx Assessment and Plan for all problems:: CBC and BMP pending; possibly transfer to the senior care today if labs are satisfactory 7
--- NOTE | 2017-10-23 09:09 | P.PN_ITS ---
Internal Medicine - PN: Subj *Date: 10/23/17 *Time: 09:05 Interval history: Patient continues to feel better daily; she feels weak; she had difficulty with walking to the chair yesterday; states she had to have her oxygen on for a little while this morning; right now she denies shortness of breath and chest pain; she continues with a cough although it is less coarse; is voiding without difficulty; her bowels are moving; states she may be eating a little bit better although she does not eat much even at home; she is packed up and [place] [facility] [place] Vital signs and Labs for Last 24 Hours: Temp Pulse Resp BP Pulse Ox 97.8 F 67 20 110/69 92 L 10/23/17 08:00 10/23/17 08:00 10/23/17 08:00 10/23/17 08:00 10/23/17 08:00 Laboratory Results - last 24 hr 10/21/17 17:23: POC Glucose 527 10/22/17 20:39: POC Glucose 272 10/23/17 06:19: POC Glucose 106 I & O for Last 24 hours: Intake & Output 10/20/17 10/21/17 10/22/17 10/23/17 11:59 11:59 11:59 11:59 Intake Total 890 / 890 770 / 770 840 / 840 960 / 960 Output Total 1850 / 1850 2100 / 2100 Balance -960 / -960 -1330 / -1330 840 / 840 960 / 960 Weight 154 lb 7 oz 153 lb 6 oz 152 lb 7 oz 151 lb 1 oz - Constitutional no acute distress Comments: Lying comfortably in the bed - *Routine Respiratory Exam Comments: Bilateral crackles and periodic wheezing of to mid lung oreilly bilaterally - *Routine Cardiovascular Exam Present: RRR - *Routine Abdominal Exam Present: soft, normoactive bowel sounds. Absent: tenderness, distended - *Routine Extremities Exam Present: full ROM. Absent: edema Comments: Bilateral calf tenderness - *Routine Neurological Exam Present: alert, oriented X3 Assessment and Plan (1) Pneumonia Current visit: Yes Status: Acute Category: Medical Code(s): J18.9 - Pneumonia, unspecified organism (2) Hypercapnic respiratory failure Current visit: Yes Status: Acute Qualifiers: Chronicity: acute Qualified Code(s): J96.02 - Acute respiratory failure with hypercapnia Category: Medical Code(s): J96.92 - Respiratory failure, unspecified with hypercapnia (3) Atrial fibrillation Current visit: Yes Status: Acute Category: Medical Code(s): I48.91 - Unspecified atrial fibrillation (4) Hypokalemia Current visit: Yes Status: Acute Category: Medical Code(s): E87.6 - Hypokalemia - Assessment and plan all Dx Assessment and Plan for all problems:: CBC and BMP pending; possibly transfer to the care home today if labs are satisfactory 7
[2017-10-23 09:20] LABS: Basophils % 0.1 % (0.1-2.0); Eosinophils % 0.1 % (0.1-12.0); Hematocrit 40.4 % (37.0-47.0); Hemoglobin 13.2 g/dL (12.2-16.2); Lymphocytes # 1.5 K/mm3 (0.7-4.5); Lymphocytes % 7.7 K/mm3 (10-50); Mean Corpuscular HGB Conc 32.6 g/dL (31.8-35.4); Mean Corpuscular Hemoglobin 29.4 pg (27.0-31.2); Mean Corpuscular Volume 90.1 fl (81-99); Mean Platelet Volume 9.7 fl (7.4-10.4); Monocytes # 0.9 K/mm3 (0.1-1.0); Monocytes % 4.6 % (1.7-9.3); Neutrophils # 16.7 K/mm3 (1.8-7.8); Neutrophils % 87.5 % (37.0-80.0); Platelet Count 291 K/mm3 (142-424); Red Blood Count 4.49 M/mm3 (4.20-5.40); Red Cell Distribution Width 13.5 % (11.5-17.5)
--- NOTE | 2017-10-23 09:29 | HMH.DCSUM ---
General - General Admission date: 10/11/17 Discharge date: 10/23/17 HPI HPI: Ms. Alan is an 82-year-old female who was seen at [facility] numerous times in [place] for recurrent cough, congestion, and shortness of air. Most recent visit was on 10/09/17. She saw Nenita in the office with cough, fever, shortness of breath, and chest congestion. Her white blood cell count was normal. She was diagnosed with an acute URI and bronchitis. Oxygen was 95% on room air. She was started on Levaquin, a steroid Dosepak, Mucinex DM, Phenergan DM cough syrup, and was given a shot of dexamethasone. She had nebulizers at home she had been using as well. Patient stated she continued to get worse. Her shortness of breath increased and she presented to the emergency room. She was found to have a pneumonia and was admitted for further evaluation and treatment. Objective Vital signs: Temp Pulse Resp BP Pulse Ox 97.8 F 67 20 110/69 92 L 10/23/17 08:00 10/23/17 08:00 10/23/17 08:00 10/23/17 08:00 10/23/17 08:00 - PE on admission Constitutional mild distress - *Routine HEENT Exam Head: Present: normocephalic, atraumatic Eye: Present: EOMI, PERRL ENT: Present: mucous membranes dry - *Routine Neck Exam Present: supple, full ROM - *Routine Respiratory Exam Present: decreased breath sounds, rhonchi, wheezes - *Routine Cardiovascular Exam Present: RRR - *Routine Abdominal Exam Present: soft, normoactive bowel sounds. Absent: tenderness - *Routine Extremities Exam Absent: edema - *Routine Skin Exam Present: intact - *Routine Neurological Exam Present: alert, oriented X3PE on admission Hospital Course Hospital Course: On admission patient was started on antibiotics and neb treatments. The night of admission she was in respiratory distress and became hypoxic. She received IV Lasix and was changed to a nonrebreather. A B G's revealed a respiratory acidosis and she was placed on BiPAP. She was less responsive and cardiac enzymes were noted to be elevated. She had a cardiac cath at this point indicating non-flow limiting coronary artery disease. She received potassium for hypokalemia. She made slow improvement with the pneumonia and was weaned gradually from the BiPAP. She received Solu-Medrol causing her blood sugars to be elevated requiring sliding scale insulin. She continued with shortness of breath and a cough. She was gradually weaned to nasal O2. She did begin to eat some but never had a good appetite. Disposition was discussed with her son who preferred for her to go to a rehab facility in [facility]. A bed was not available in this facility and plans were made for her to go to [facility] [place]. On 10/21/2017 she was noted to be feeling better daily. She continued with a INTERVENTIONAL PHYSICIAN cough although she was breathing easier. She had been weaned off her nasal O2 and was only using as needed. Physical therapy was seeing the patient as well. She was sitting up in a chair without difficulty. 10/22/2017 a bed was available at [facility]. Patient was stable to be discharged. Disposition: Patient transferred to [facility] in stable and satisfactory condition. See discharge plan and orders Results Completed studies during hospitalization [Text1]: Selected Entries 10/21/17 12:00 10/21/17 16:00 10/21/17 18:39 Pulse Rate 80 78 Pulse Rate [Right Brachial] 84 67 Respiratory Rate 26 H 22 Blood Pressure [Left Arm] 90/50 109/60 Blood Pressure Mean [Right Arm] 10/21/17 18:40 10/21/17 20:00 10/21/17 23:23 Pulse Rate 78 70 Pulse Rate [Right Brachial] 74 65 Respiratory Rate 26 H 20 Blood Pressure [Left Arm] 104/57 Blood Pressure Mean [Right Arm] 70 10/21/17 23:51 10/21/17 23:52 10/22/17 00:00 Pulse Rate 81 83 80 Pulse Rate [Right Brachial] Respiratory Rate Blood Pressure [Left Arm] Blood Pressure Mean [Right Arm] 10/22/17 04:00 02/0
[2017-10-23 09:31] LABS: MANUAL DIFFERENTIAL MANUAL DIFFERENTIAL (MANUAL DIFF)
[2017-10-23 09:34] LABS: Anion Gap 11.1 mEq/L (5-15); Blood Urea Nitrogen 40 mg/dL (7-18); Carbon Dioxide 28 mmol/L (21.0-32.0); Chloride 100 mmol/L (98-107); Creatinine Clearance Estimated 43 mL/min (0-300); Estimated Glomerular Filt Rate 48 ml/min (>60); GFR (African American) 58 ML/MIN (>60); Glucose 217 mg/dL (74-106); Potassium 4.1 mmoL/L (3.5-5.1); Sodium 135 mmol/L (136-145)
[2017-10-23 10:13] LABS: Lymphocytes % 3 % (10-50); Monocytes % 11 % (2-9); Neutrophils % 86 % (42-76); Total Cells Counted 100
[2017-10-23 10:14] LABS: Platelet Estimate Normal; RBC Morphology Normal
--- NOTE | 2017-10-23 11:29 | PC.NURSE ---
Report called to Tarik at [facility]. Awaiting van for transportation from [facility], Pt is stable and ready for transfer to facility.
[2017-10-24 20:48] LABS: POC Glucose,Bedside 145 mg/dL
== END 2017-10-23 12:11 | DRG 193 ==
LOC: ER 19:38 → 2ND 19:54
PROVIDERS: Emergency Medicine; Family Medicine; Internal Medicine; Nurse Practitioner Family; Admitting Provider Family Medicine; Emergency Provider General Practice; Family Provider Family Medicine; PCP Family Medicine; Visit Provider Family Medicine
PROC: 4A023N8 Measurement of Cardiac Sampling and Pressure, Bilateral, Percutaneous Approach (ICD-10-PCS; principal; 2017-10-14 18:30)
DX: J18.9 Pneumonia, unspecified organism (principal); J96.02 Acute respiratory failure with hypercapnia; I48.2 Chronic atrial fibrillation; I69.351 Hemiplegia and hemiparesis following cerebral infarction affecting right dominant side; E86.0 Dehydration; I50.9 Heart failure, unspecified; I48.91 Unspecified atrial fibrillation; E03.9 Hypothyroidism, unspecified; E87.6 Hypokalemia; I10 Essential (primary) hypertension; Z95.0 Presence of cardiac pacemaker
CPT/HCPCS: 36014; 36415; 71045; 71046; 71250; 75741; 80048; 80053; 82550; 82553; 82803; 82810; 82947; 82962; 83605; 83880; 84484; 85007; 85025; 87040; 87070; 87205; 87275; 87276; 87430; 93005; 93306; 93460; 94640; 94660; 94761; 97110; 97116; 97162; 97530; 99152; 99285; C1725; C1769; C1894; G0238; J1644; J1956; J2405; Q9967

== ENCOUNTER 2017-10-25 10:29 | Observation (INO) | payer MEDICARE, OTHER, SELFPAY ==
[2017-10-25] VITALS (9 sets, daily range): BP systolic 72–106; BP diastolic 42–58; PULSE 58–95; RESP 16–20; TEMP 36.4–37.1; O2SAT 87–98; BMI 27.4; BMI 26.6
--- NOTE | 2017-10-25 | CT_ITS ---
CT angio chest HISTORY: Dyspnea and hypotension ITS.REASON: HYPOTENSION,DYSPNEA ORDERING PHYSICIAN: Abbie Graves MD PATIENT AGE: 82 years TECHNIQUE: Axial images obtained following the administration of 75 mL of Isovue 370 . Sagittal, and coronal reformatted images are also generated and reviewed. COMPARISON: 10/12/2017 FINDINGS: No evidence of pulmonary embolus. The ascending aorta is slightly dilated at 4.2 cm in AP and transverse dimension. There is mild cardiomegaly. There are coronary artery calcifications. There has been interval development of consolidation in the right lower lobe with air bronchograms consistent with pneumonia. Patchy peripheral areas of infiltrate are present in the upper lobes more extensive on the left. Previously noted pneumonia within the left upper lobe has shown moderate improvement. There is some patchy residual infiltrate in the right upper lobe laterally. No change in partially calcified mediastinal lymph nodes There is reflux of contrast into the inferior vena cava which may be related to right heart strain. IMPRESSION: 1. No evidence of pulmonary embolus. 2. Mild dilatation of the ascending aorta at 4.2 centimeters 3. Marked improvement in the left upper lobe pneumonia. Consolidation is now present in the right lower lobe may be due to combination of pneumonia and volume loss with some persistent patchy peripheral areas of consolidation in both upper lobes
--- NOTE | 2017-10-25 10:38 | XR_ITS ---
XR chest portable HISTORY: Cough ITS.REASON: COUGH ORDERING PHYSICIAN: Gaston Klein MD PATIENT AGE: 82 years COMPARISON: 2 09/24/2012 FINDINGS: Borderline cardiomegaly with bipolar pacemaker present. No CHF. Increasing bandlike density emanates from the right hilum superiorly consistent with atelectasis with patchy density in the infrahilar region consistent with residual pneumonia. Left lung is clear. Right hemidiaphragm slightly elevated. IMPRESSION: Increasing right suprahilar atelectatic changes with persistent right basilar infiltrate
[2017-10-25 11:07] LABS: Basophils % 0.1 % (0.1-2.0); Eosinophils # 0.1 K/mm3 (0.0-0.4); Eosinophils % 0.5 % (0.1-12.0); Hematocrit 38.8 % (37.0-47.0); Hemoglobin 12.5 g/dL (12.2-16.2); Lymphocytes # 1.2 K/mm3 (0.7-4.5); Lymphocytes % 10.5 K/mm3 (10-50); Mean Corpuscular HGB Conc 32.3 g/dL (31.8-35.4); Mean Corpuscular Hemoglobin 29.4 pg (27.0-31.2); Mean Corpuscular Volume 90.9 fl (81-99); Mean Platelet Volume 9.6 fl (7.4-10.4); Monocytes # 0.5 K/mm3 (0.1-1.0); Monocytes % 4.8 % (1.7-9.3); Neutrophils # 9.5 K/mm3 (1.8-7.8); Neutrophils % 84.1 % (37.0-80.0); Platelet Count 267 K/mm3 (142-424); Red Blood Count 4.27 M/mm3 (4.20-5.40); Red Cell Distribution Width 13.4 % (11.5-17.5); White Blood Count 11.3 K/mm3 (4.8-10.8)
--- NOTE | 2017-10-25 11:28 | HMH.EDWEAK ---
ED Disposition Clinical Impression: Dehydration, Tinea cruris Hypotension Qualifiers: Hypotension type: other hypotension type Qualified Code(s): I95.89 - Other hypotension Disposition: Admitted As Inpatient Condition on Discharge: Fair Time of Disposition: 12:49 - Critical Care Critical Care Time: No Attestation: On 10/25/17, the high probability of a clinically significant, sudden or life threatening deterioration of the following system(s) required my full and direct attention, intervention and personal management. The time I documented below is in addition to time spent performing reported procedures but includes the following listed in this critical care notation. Total Critical Care Time: 60 Vital system(s) involved:: Circulatory Failure My critical care processes included: Assessment & monitoring of V/S, Initial and Re-exams, Data Review/Interpretation, Coordinating Care, Medication Orders and management, Documentation Medical Decision Making - Medical Records Medical records reviewed: Yes: I reviewed the patient's medical records. Vital Signs: 10/25/17 10:31 10/25/17 11:30 10/25/17 13:30 Temperature Temperature Source Pulse Rate Pulse Rate [Left Radial] 60 64 60 Respiratory Rate 18 18 20 Blood Pressure Blood Pressure [Left Arm] 72/42 106/46 72/47 Blood Pressure Mean [Left Arm] 52 66 55 Blood Pressure Source [Left Arm] Automatic Cuff Automatic Cuff Automatic Cuff Blood Pressure Position [Left Arm] Supine Sitting Sitting 02 Sat by Pulse Oximetry 94 L 94 L 98 Oxygen Delivery Method Nasal Cannula Nasal Cannula Nasal Cannula Oxygen Flow Rate (LPM) 2 2 2 10/25/17 14:23 Temperature 98.8 F Temperature Source Oral Pulse Rate 58 L Pulse Rate [Left Radial] Respiratory Rate 16 Blood Pressure 92/52 Blood Pressure [Left Arm] Blood Pressure Mean [Left Arm] Blood Pressure Source [Left Arm] Blood Pressure Position [Left Arm] 02 Sat by Pulse Oximetry Oxygen Delivery Method Nasal Cannula Oxygen Flow Rate (LPM) 2 - Lab Data Lab results reviewed: Yes: I reviewed the patient's lab results. Lab Results 10/25/17 10:53: WBC 11.3 H D, RBC 4.27, Hgb 12.5, Hct 38.8, MCV 90.9, MCH 29.4, MCHC 32.3, RDW 13.4, Plt Count 267, MPV 9.6, Neut % (Auto) 84.1 H, Lymph % (Auto) 10.5, [place] % (Auto) 4.8, Eos % (Auto) 0.5, Baso % (Auto) 0.1, Neut # (Auto) 9.5 H, Lymph # (Auto) 1.2, [place] # (Auto) 0.5, Eos # (Auto) 0.1, Baso # (Auto) 0.0 10/25/17 10:53: Sodium 139, Potassium 3.5, Chloride 104, Carbon Dioxide 27, Anion Gap 11.5, BUN 47 H, Creatinine 1.31 H, Estimated Creat Clear 37, Estimated GFR 39 L, Est GFR ( Amer) 47 L, Glucose 234 H, Calcium 8.4 L, Total Bilirubin 0.8, AST 27, ALT 33, Alkaline Phosphatase 62, Total Creatine Kinase 53, CK-MB (CK-2) 2.3 D, CK-MB (CK-2) Rel Index 4.3 H, Troponin I < 0.02, Total Protein 6.0 L, Albumin 1.8 L, Globulin 4.2 H, Albumin/Globulin Ratio 0.4 L 10/25/17 10:53: Lactic Acid 2.3 H 10/25/17 10:53: ESR 66 H 10/25/17 10:53: C-Reactive Protein 6.3 H 10/25/17 10:53: B-Natriuretic Peptide 136 H 10/25/17 10:53: TSH 0.05 L 10/25/17 13:05: Urine Color Yellow, Urine Appearance Clear, Urine pH 5.5, Ur Specific [place] 1.015, Urine Protein Negative, Urine Glucose (UA) Negative, Urine Ketones Negative, Urine Blood 3+, Urine Nitrate Negative, Urine Bilirubin Negative, Urine Urobilinogen 0.2, Ur Leukocyte Esterase Negative, Urine RBC 20-50, Urine WBC Occasional, Ur Squamous Epith Cells Occasional, Urine Bacteria Trace, Urine Mucus Trace Result diagrams: 10/25/17 10:53 10/25/17 10:53 Orders (Tests/Meds): ED MEDICATIONS Generic Name Dose Route Start Last Admin Trade Name Freq PRN Reason Stop Dose Admin Albuterol/Ipratropium 3 ml 10/25/17 21:00 10/25/17 20:23 Duoneb 3ml Neb IH 11/24/17 20:59 3 ml TID ADAL Administration Aspirin 81 mg 10/26/17 09:00 Aspirin 81mg Enteric Coated Tablet PO 11/25/17 08:59 DAILY ADAL Bisacodyl 10 mg 10/25/17 16:00 Du
[2017-10-25 11:41] LABS: Lactic Acid 2.3 mmol/L (0.4-2.0)
[2017-10-25 12:00] LABS: Alanine Aminotransferase 33 U/L (12-78); Albumin Level 1.8 gm/dL (3.4-5.0); Albumin/Globulin Ratio 0.4 (1.1-1.8); Alkaline Phosphatase 62 U/L (46-116); Anion Gap 11.5 mEq/L (5-15); Aspartate Amino Transferase 27 U/L (15-37); Bilirubin,Total 0.8 mg/dL (0.2-1.0); Blood Urea Nitrogen 47 mg/dL (7-18); CKMB Relative Index 4.3 U/L (0-4.0); Calcium 8.4 mg/dL (8.5-10.1); Carbon Dioxide 27 mmol/L (21.0-32.0); Chloride 104 mmol/L (98-107); Creatine Kinase 53 U/L (26-192); Creatine Kinase MB 2.3 mg/ml (0.0-3.6); Creatinine Clearance Estimated 37 mL/min (0-300); Creatinine,Serum 1.31 mg/dL (0.55-1.02); Estimated Glomerular Filt Rate 39 ml/min (>60); GFR (African American) 47 ML/MIN (>60); Globulin 4.2 gm/dl (1.3-3.2); Glucose 234 mg/dL (74-106); Potassium 3.5 mmoL/L (3.5-5.1); Sodium 139 mmol/L (136-145); Troponin I < 0.02 ng/ml (0.00-0.06)
--- NOTE | 2017-10-25 13:05 | CT_ITS ---
CT abdomen pelvis w con CLINICAL INDICATION: ITS.REASON: hypotesnion, occult infection ORDERING PHYSICIAN: Abbie Graves MD PATIENT AGE: 82 years COMPARISON: None TECHNIQUE: Axial images obtained with sagittal and coronal reformats. PROCEDURE: Oral Contrast: None IV Contrast: 75 mL's of Isovue-370 performed in conjunction with the chest CT. FINDINGS: There is been prior cholecystectomy. There is mild prominence of the biliary tree which may be related to the previous cholecystectomy. No focal liver lesion evident. Spleen and adrenal glands and pancreas are unremarkable aside from some pancreatic atrophy. There is a 3 cm left renal cyst. Minimal prominence of the renal pelves on both sides. No obstructing ureteral calculi evident. Prior hysterectomy. There is diverticulosis of the descending and sigmoid colon but no evidence of diverticulitis. Unremarkable appendix. No intestinal obstruction or free air. Small lymph nodes right lower quadrant nonspecific. Degenerative changes lumbar spine. IMPRESSION: No acute finding. Diverticulosis. No evidence of diverticulitis or other significant anomalies
[2017-10-25 13:08] LABS: Microscopic, Urine URINE MICROSCOPIC (MICROSCOPIC)
[2017-10-25 13:14] LABS: C-Reactive Protein 6.3 mg/L (0.0-0.9)
[2017-10-25 13:16] LABS: Appearance,Urine CLEAR (Clear); Bilirubin,Urine Negative (Negative); Blood, Urine 3+ (Negative); Color,Urine YELLOW (Yellow); Glucose,Urine (UA) Negative (Negative); Ketones,Urine Negative (Negative); Leukocyte Esterase,Urine Negative (Negative); Nitrate,Urine Negative (Negative); PH,Urine 5.5 (5.0-8.5); Protein,Urine Negative (Negative); Specific Gravity, Urine 1.015 (1.005-1.030); Urobilinogen,Urine 0.2 EU/dl (0.2)
[2017-10-25 13:48] LABS: Bacteria,Urine Trace /lpf; Mucus,Urine Trace /lpf; RBC,Urine 20-50 #/hpf (0-3); Squamous Epithelial Cell,Urine Occasional #/hpf (0-5); WBC,Urine Occasional #/hpf (0-3)
[2017-10-25 14:00] LABS: Erythrocyte Sedimentation Rate 66 mm/hr (0-30)
[2017-10-25 14:37] LABS: Thyroid Stimulating Hormone 0.05 uIU/ml (0.358-3.740)
[2017-10-25 15:03] LABS: Reflex Lactic Add Lactic Reflex
--- NOTE | 2017-10-25 15:18 | HMH.HP ---
*Admission Date: 10/25/17 *Chief complaint: Dizziness, nausea, hypotension *History of present illness: Ms. Alan is an 82yo female who was just discharged from [facility] to [facility] after an admission for pneumonia. She states she has not been eating or drinking well. Yesterday, [facility] called to inform Almita Sousa that her BP was low at 65/42. She went over her medications and had then discontinue one of her HCTZ pills. She advised them to monitor her BP tid manually. They took her BP while Almita was on the phone and it was up to 93/55. During the night, her BP was normal but this am it was 54/50. I spoke with Ami at [facility] and asked them to recheck it. She stated they had tried but no one could even get a reading. The patient was alert but felt dizzy and nauseated. Dr. Graves advised for her to come to the ER. She was admitted with dehydration and hypotension. [facility] History Medical History: Reports:: Atrial Fibrillation, Cerebrovascular Accident (right side), Hyperlipidemia, Hypertension, Internal Pacemaker Denies:: Cancer, Diabetes Mellitus Type 1, Diabetes Mellitus Type 2, MRSA Other Medical History: Reports: Arthritis, Hypothyroidism, Thyroid Disease Other Surgeries: Yes: Hysterectomy-Total, Pacemaker, Other (Cholecystectomy) Amputation: No Fractures: No - *Social History Smoking Status: Never smoker Alcohol Intake: never Occupational Status: retired Housing: skilled nursing - Psychiatric History Expresses thoughts of harming self/others: None Suicide Plan Description: No Plan *Family Hx:: Cancer, Heart Attack, Stroke Review of Systems - Constitutional Reports lack of energy, Reports weakness, Denies body ache(s), Denies chills, Denies fever(s), Denies headache(s) - Eyes Denies blurry vision, Denies double vision - ENT Denies nasal congestion, Denies sore throat - *Cardiovascular Denies chest pain, Denies leg swelling - *Respiratory Reports cough, Reports shortness of breath, Denies wheezing - *Gastrointestinal Reports nausea, Denies abdominal pain, Denies loose stools, Denies vomiting - *Genitourinary Denies difficulty urinating, Denies painful urination - *Musculoskeletal Denies joint pain - *Neurologic Reports dizziness, Reports weakness, Denies headache(s), Denies numbness, Denies tingling Meds Home Medications Medication Instructions Recorded Confirmed Type Amlodipine Besylate [Norvasc 5mg 5 mg PO DAILY 10/11/17 10/25/17 History tablet] Levothyroxine Sodium 200 mcg PO DAILY 10/11/17 10/25/17 History [Levothyroxine 200mcg (0.2mg) Tab] Aspirin [Aspir-Low] 81 mg PO DAILY 10/12/17 10/25/17 History Carvedilol [Carvedilol 12.5mg Tab] 12.5 mg PO BID 10/12/17 10/25/17 History Cholecalciferol (Vitamin D3) 2,000 unit PO DAILY 10/12/17 10/25/17 History [Vitamin D3 1,000 Unit Tab] Simvastatin 20 mg PO HS 10/12/17 10/25/17 History Bisacodyl [Dulcolax 10mg Supp] 10 mg RC DAILYP PRN 10/25/17 10/25/17 History Losartan Potassium 50 mg PO DAILY 10/25/17 10/25/17 History Magnesium Hydroxide [Milk of 30 ml PO DAILYP PRN 10/25/17 10/25/17 History Magnesia 30mL Udc] Sod Phos,M-B/Na Phos,Di-Ba [Fleet 133 ml RC DAILYP PRN 10/25/17 10/25/17 History Enema] hydroCHLOROthiazide [HCTZ 25mg 25 mg PO DAILY 10/25/17 10/25/17 History tab] Allergies Allergy/AdvReac Type Severity Reaction Status Date / Time Azithromycin Allergy Unknown Uncoded 09/04/17 14:41 From Penicillin V Potassium Allergy Unknown Uncoded 09/04/17 14:41 Penicillin Allergy Unknown Uncoded 09/04/17 14:41 Exam Vital signs and Labs for Last 24 Hours: Temp Pulse Resp BP Pulse Ox 97.9 F 60 16 92/52 97 10/25/17 14:46 10/25/17 14:55 10/25/17 14:55 10/25/17 14:46 10/25/17 14:55 Lab Results 10/25/17 10:53: WBC 11.3 H D, RBC 4.27, Hgb 12.5, Hct 38.8, MCV 90.9, MCH 29.4, MCHC 32.3, RDW 13.4, Plt Count 267, MPV 9.6, Neut % (Auto) 84.1 H, Lymph % (Auto) 10.5, [place] % (Auto) 4.8, Eos % (A
[2017-10-25 15:35] LABS: Lactic Acid Follow Up (RFLX 1) 1.2 (0.4-2.0)
--- NOTE | 2017-10-25 15:37 | P.HP_ITS ---
*Admission Date: 10/25/17 *Chief complaint: Dizziness, nausea, hypotension *History of present illness: Ms. Alan is an 82yo female who was just discharged from [facility] to [place] after an admission for pneumonia. She states she has not been eating or drinking well. Yesterday, [place] called to inform Almita Sousa that her BP was low at 65/42. She went over her medications and had then discontinue one of her HCTZ pills. She advised them to monitor her BP tid manually. They took her BP while Almita was on the phone and it was up to 93/55. During the night, her BP was normal but this am it was 54/50. I spoke with Ami at [facility] and asked them to recheck it. She stated they had tried but no one could even get a reading. The patient was alert but felt dizzy and nauseated. Dr. Graves advised for her to come to the ER. She was admitted with dehydration and hypotension. [facility] History Medical History: Reports:: Atrial Fibrillation, Cerebrovascular Accident (right side), Hyperlipidemia, Hypertension, Internal Pacemaker Denies:: Cancer, Diabetes Mellitus Type 1, Diabetes Mellitus Type 2, MRSA Other Medical History: Reports: Arthritis, Hypothyroidism, Thyroid Disease Other Surgeries: Yes: Hysterectomy-Total, Pacemaker, Other (Cholecystectomy) Amputation: No Fractures: No - *Social History Smoking Status: Never smoker Alcohol Intake: never Occupational Status: retired Housing: [employer] - Psychiatric History Expresses thoughts of harming self/others: None Suicide Plan Description: No Plan *Family Hx:: Cancer, Heart Attack, Stroke Review of Systems - Constitutional Reports lack of energy, Reports weakness, Denies body ache(s), Denies chills, Denies fever(s), Denies headache(s) - Eyes Denies blurry vision, Denies double vision - ENT Denies nasal congestion, Denies sore throat - *Cardiovascular Denies chest pain, Denies leg swelling - *Respiratory Reports cough, Reports shortness of breath, Denies wheezing - *Gastrointestinal Reports nausea, Denies abdominal pain, Denies loose stools, Denies vomiting - *Genitourinary Denies difficulty urinating, Denies painful urination - *Musculoskeletal Denies joint pain - *Neurologic Reports dizziness, Reports weakness, Denies headache(s), Denies numbness, Denies tingling Meds Home Medications Medication Instructions Recorded Confirmed Type Amlodipine Besylate [Norvasc 5mg 5 mg PO DAILY 10/11/17 10/25/17 History tablet] Levothyroxine Sodium 200 mcg PO DAILY 10/11/17 10/25/17 History [Levothyroxine 200mcg (0.2mg) Tab] Aspirin [Aspir-Low] 81 mg PO DAILY 10/12/17 10/25/17 History Carvedilol [Carvedilol 12.5mg Tab] 12.5 mg PO BID 10/12/17 10/25/17 History Cholecalciferol (Vitamin D3) 2,000 unit PO DAILY 10/12/17 10/25/17 History [Vitamin D3 1,000 Unit Tab] Simvastatin 20 mg PO HS 10/12/17 10/25/17 History Bisacodyl [Dulcolax 10mg Supp] 10 mg RC DAILYP PRN 10/25/17 10/25/17 History Losartan Potassium 50 mg PO DAILY 10/25/17 10/25/17 History Magnesium Hydroxide [Milk of 30 ml PO DAILYP PRN 10/25/17 10/25/17 History Magnesia 30mL Udc] Sod Phos,M-B/Na Phos,Di-Ba [Fleet 133 ml RC DAILYP PRN 10/25/17 10/25/17 History Enema] hydroCHLOROthiazide [HCTZ 25mg 25 mg PO DAILY 10/25/17 10/25/17 History tab] Allergies Allergy/AdvReac Type Severity Reaction Status Date / Time Azithromycin Allergy Unknown Uncoded 09/04/17 14:41
--- NOTE | 2017-10-25 15:45 | PC.NURSE ---
Pt arrived to the floor via stretcher w/daughter at bedside. Pt admitted w/hypotension and pneumonia. BP is 92/52. She is A&O x3. Rhonchi noted to right lobes, bilateral bases diminished. O2 sat 97% on 2l NC upon arrival to room. Bowel sounds active. Abd soft and nontender. Pt reports having a bm this morning. Scattered bruising noted to extremities. Buttocks is reddened. Barrier cream applied. Pt states she is incontinent of bowel and bladder but this has just started recently. She also states she is usually able to ambulate independently but is unable to do so at this time due to weakness. Pt oriented to room. Call light in reach. Bed in low position. Will continue to monitor.
--- NOTE | 2017-10-25 19:20 | PC.NURSE ---
report given to dorinda mathew rn
[2017-10-26] VITALS: BP 107/62; PULSE 60; RESP 20; TEMP 36.4; O2SAT 96
--- NOTE | 2017-10-26 03:28 | PC.NURSE ---
Patient resting well this shift. BP trending up. Stable on 2L NC. Rhonci lung sounds on the right side. No new concerns at this time. RN will continue to monitor.
[2017-10-26 04:00] VITALS: BP 97/46; PULSE 60; RESP 17; TEMP 36.4; O2SAT 94
[2017-10-26 05:59] VITALS: PULSE 63; PULSE 67; O2SAT 90
--- NOTE | 2017-10-26 07:23 | P.CONPHA_ITS ---
[facility] Pharmacy VTE Monitoring - Patient Demographics Admission date: 10/25/17 Report Date: 10/26/17 Time: 07:23 Allergies/Adverse Reactions: Patient Allergies Azithromycin Allergy (Unknown, Uncoded 09/04/17 14:41) From Penicillin V Potassium Allergy (Unknown, Uncoded 09/04/17 14:41) Penicillin Allergy (Unknown, Uncoded 09/04/17 14:41) Height: 1.6 m Weight: 70.023 kg Patient Problems: Current Active Problems Dehydration (Acute) Hypotension (Acute) Tinea cruris (Acute) - VTE Risk Labs: VTE Related Lab Results Hgb 12.5 g/dL (12.2-16.2) 10/25/17 10:53 Hct 38.8 % (37.0-47.0) 10/25/17 10:53 Plt Count 267 K/mm3 (142-424) 10/25/17 10:53 BUN 47 mg/dL (7-18) H 10/25/17 10:53 Creatinine 1.31 mg/dL (0.55-1.02) H 10/25/17 10:53 Estimated Creat Clear 37 mL/min (0-300) 10/25/17 10:53 Was VTE Risk Assessment Performed: Yes VTE Score: 5 VTE Risk Level: Low Risk - Prophylaxis VTE Prophylaxis Ordered?: Yes Types of VTE Prophylaxis: TEDS Knee High Location of Applied Device: Bilateral Lower Extremeties - VTE Diagnosis Confirmed Treatment or plan recommended: Continue Current Treatment
--- NOTE | 2017-10-26 07:42 | PC.NURSE ---
WEANED OXYGEN FROM 3LNC TO RA THIS SHIFT. REASSESSED RA AT 0600 AND O2SATS NOTED 91%
[2017-10-26 07:57] VITALS: BP 94/55; PULSE 60; RESP 18; TEMP 36.4; O2SAT 96
[2017-10-26 08:00] VITALS: O2SAT 96
--- NOTE | 2017-10-26 08:11 | HMH.ACPN2 ---
Internal Medicine - PN: Subj *Date: 10/26/17 *Time: 08:11 Interval history: The patient is feeling very well this morning. She would likely discharge back to the long-term. Blood pressure has stabilized but still runs low normal. Is only receiving carvedilol 6.25 twice daily. Exam Vital signs and Labs for Last 24 Hours: Temp Pulse Resp BP Pulse Ox 97.5 F L 60 18 94/55 96 10/26/17 07:57 10/26/17 07:57 10/26/17 07:57 10/26/17 07:57 10/26/17 07:57 Laboratory Results - last 24 hr 10/25/17 15:10: Lactic Acid Fup @ 4Hr 1.2 I & O for Last 24 hours: Intake & Output 10/23/17 10/24/17 10/25/17 10/26/17 11:59 11:59 11:59 11:59 Intake Total 3368 / 3368 Balance 3368 / 3368 Weight 154 lb 6 oz - Constitutional no acute distress - *Routine HEENT Exam Head: Present: normocephalic Eye: Present: PERRL ENT: Present: mucous membranes moist - *Routine Respiratory Exam Comments: Her lungs are actually improved and clearer. She does have a few bibasilar rales. - *Routine Abdominal Exam Present: soft. Absent: tenderness - *Routine Extremities Exam Absent: edema Assessment and Plan (1) Pneumonia Current visit: No Status: Acute Category: Medical Code(s): J18.9 - Pneumonia, unspecified organism (2) Dehydration Current visit: Yes Status: Acute Category: Medical Code(s): E86.0 - Dehydration (3) Hypotension Current visit: Yes Status: Acute Qualifiers: Hypotension type: other hypotension type Qualified Code(s): I95.89 - Other hypotension Category: Medical Code(s): I95.9 - Hypotension, unspecified (4) Hyperlipemia Current visit: No Status: Chronic Category: Medical Code(s): E78.5 - Hyperlipidemia, unspecified (5) Hypertension Current visit: No Status: Chronic Category: Medical Code(s): I10 - Essential (primary) hypertension (6) Hypothyroid Current visit: No Status: Chronic Category: Medical Code(s): E03.9 - Hypothyroidism, unspecified - Assessment and plan all Dx Assessment and Plan for all problems:: We should be able to discharge the patient today back to [facility].
--- NOTE | 2017-10-26 08:15 | P.PN_ITS ---
Internal Medicine - PN: Subj *Date: 10/26/17 *Time: 08:11 Interval history: The patient is feeling very well this morning. She would likely discharge back to the intermediate. Blood pressure has stabilized but still runs low normal. Is only receiving carvedilol 6.25 twice daily. Exam Vital signs and Labs for Last 24 Hours: Temp Pulse Resp BP Pulse Ox 97.5 F L 60 18 94/55 96 10/26/17 07:57 10/26/17 07:57 10/26/17 07:57 10/26/17 07:57 10/26/17 07:57 Laboratory Results - last 24 hr 10/25/17 15:10: Lactic Acid Fup @ 4Hr 1.2 I & O for Last 24 hours: Intake & Output 10/23/17 10/24/17 10/25/17 10/26/17 11:59 11:59 11:59 11:59 Intake Total 3368 / 3368 Balance 3368 / 3368 Weight 154 lb 6 oz - Constitutional no acute distress - *Routine HEENT Exam Head: Present: normocephalic Eye: Present: PERRL ENT: Present: mucous membranes moist - *Routine Respiratory Exam Comments: Her lungs are actually improved and clearer. She does have a few bibasilar rales. - *Routine Abdominal Exam Present: soft. Absent: tenderness - *Routine Extremities Exam Absent: edema Assessment and Plan (1) Pneumonia Current visit: No Status: Acute Category: Medical Code(s): J18.9 - Pneumonia, unspecified organism (2) Dehydration Current visit: Yes Status: Acute Category: Medical Code(s): E86.0 - Dehydration (3) Hypotension Current visit: Yes Status: Acute Qualifiers: Hypotension type: other hypotension type Qualified Code(s): I95.89 - Other hypotension Category: Medical Code(s): I95.9 - Hypotension, unspecified (4) Hyperlipemia Current visit: No Status: Chronic Category: Medical Code(s): E78.5 - Hyperlipidemia, unspecified (5) Hypertension Current visit: No Status: Chronic Category: Medical Code(s): I10 - Essential (primary) hypertension (6) Hypothyroid Current visit: No Status: Chronic Category: Medical Code(s): E03.9 - Hypothyroidism, unspecified - Assessment and plan all Dx Assessment and Plan for all problems:: We should be able to discharge the patient today back to [facility].
--- NOTE | 2017-10-26 08:27 | HMH.ACPN2 ---
Internal Medicine - PN: Subj *Date: 10/26/17 *Time: 08:27 Interval history: Patient doing well today. Feels much better. No more dizziness. Her blood pressure has improved as has her hydration status. She is stable to be discharged back to [facility]. Exam Vital signs and Labs for Last 24 Hours: Temp Pulse Resp BP Pulse Ox 97.5 F L 60 18 94/55 96 10/26/17 07:57 10/26/17 07:57 10/26/17 07:57 10/26/17 07:57 10/26/17 07:57 Laboratory Results - last 24 hr 10/25/17 15:10: Lactic Acid Fup @ 4Hr 1.2 I & O for Last 24 hours: Intake & Output 10/23/17 10/24/17 10/25/17 10/26/17 11:59 11:59 11:59 11:59 Intake Total 3368 / 3368 Balance 3368 / 3368 Weight 154 lb 6 oz - Constitutional no acute distress - *Routine Cardiovascular Exam Present: RRR - *Routine Abdominal Exam Present: soft, normoactive bowel sounds. Absent: tenderness - *Routine Extremities Exam Absent: edema Assessment and Plan (1) Pneumonia Current visit: No Status: Acute Category: Medical Code(s): J18.9 - Pneumonia, unspecified organism (2) Dehydration Current visit: Yes Status: Acute Category: Medical Code(s): E86.0 - Dehydration (3) Hypotension Current visit: Yes Status: Acute Qualifiers: Hypotension type: other hypotension type Qualified Code(s): I95.89 - Other hypotension Category: Medical Code(s): I95.9 - Hypotension, unspecified (4) Hyperlipemia Current visit: No Status: Chronic Category: Medical Code(s): E78.5 - Hyperlipidemia, unspecified (5) Hypertension Current visit: No Status: Chronic Category: Medical Code(s): I10 - Essential (primary) hypertension (6) Hypothyroid Current visit: No Status: Chronic Category: Medical Code(s): E03.9 - Hypothyroidism, unspecified - Assessment and plan all Dx Assessment and Plan for all problems:: Hypotension has resolved. Patient is stable to be discharged back to [facility]. Most of her blood pressure medications have been stopped except for carvedilol 6.25 mg twice daily. This medication will be continued. Her blood pressure will have to be monitored once back at [facility].
--- NOTE | 2017-10-26 08:48 | HMH.DCSUM ---
General - General Admission date: 10/25/17 Discharge date: 10/26/17 HPI HPI: Ms. Alan is an 82yo female who was just discharged from [facility] to [facility] after an admission for pneumonia. She states she has not been eating or drinking well. Yesterday, [facility] called to inform Almita Sousa that her BP was low at 65/42. She went over her medications and had then discontinue one of her HCTZ pills. She advised them to monitor her BP tid manually. They took her BP while Almita was on the phone and it was up to 93/55. During the night, her BP was normal but this am it was 54/50. I spoke with Ami at [facility] and asked them to recheck it. She stated they had tried but no one could even get a reading. The patient was alert but felt dizzy and nauseated. Dr. Graves advised for her to come to the ER. She was admitted with dehydration and hypotension. Objective Vital signs: Temp Pulse Resp BP Pulse Ox 97.5 F L 60 18 94/55 96 10/26/17 07:57 10/26/17 07:57 10/26/17 07:57 10/26/17 07:57 10/26/17 07:57 Narrative: - Constitutional no acute distress - *Routine HEENT Exam Head: Present: normocephalic, atraumatic Eye: Present: EOMI, PERRL - *Routine Neck Exam Present: supple, full ROM - *Routine Respiratory Exam Present: rales (RLL ), wheezes (faint) - *Routine Cardiovascular Exam Present: RRR - *Routine Abdominal Exam Present: soft, normoactive bowel sounds. Absent: tenderness - *Routine Extremities Exam Absent: edema - *Routine Skin Exam Present: intact - *Routine Neurological Exam Present: alert, oriented X3 Hospital Course Hospital Course: The patient's BP and hydration improved and she felt much better. She was stable to be charged back to [facility]. All of her blood pressure medications have been discontinued except for her carvedilol, and this dose was decreased to 6.25 mg twice daily. Blood pressure will need to be monitored manually 3 times daily at [facility]. She will follow-up with Almita Sousa and Dr. Graves next week. Results Labs on day of discharge: Labs from last 24 hours 10/25/17 15:10 Lactic Acid Fup @ 4Hr 1.2 DS: Diagnosis - Discharge Diagnosis (1) Pneumonia Status: Acute (2) Dehydration Status: Acute (3) Hypotension Status: Acute (4) Hyperlipemia Status: Chronic (5) Hypertension Status: Chronic (6) Hypothyroid Status: Chronic Meds Home Medications Medication Instructions Recorded Confirmed Type Aspirin [Aspir-Low] 81 mg PO DAILY 10/12/17 10/25/17 History Cholecalciferol (Vitamin D3) 2,000 unit PO DAILY 10/12/17 10/25/17 History [Vitamin D3 1,000 Unit Tab] Simvastatin 20 mg PO HS 10/12/17 10/25/17 History Bisacodyl [Dulcolax 10mg Supp] 10 mg RC DAILYP PRN 10/25/17 10/25/17 History Magnesium Hydroxide [Milk of 30 ml PO DAILYP PRN 10/25/17 10/25/17 History Magnesia 30mL Udc] Sod Phos,M-B/Na Phos,Di-Ba [Fleet 133 ml RC DAILYP PRN 10/25/17 10/25/17 History Enema] Allergies Allergy/AdvReac Type Severity Reaction Status Date / Time Azithromycin Allergy Unknown Uncoded 09/04/17 14:41 From Penicillin V Potassium Allergy Unknown Uncoded 09/04/17 14:41 Penicillin Allergy Unknown Uncoded 09/04/17 14:41 Discharge Plan - Patient Discharge Instructions ACTIVITY: Continue current activity DIET: continue same diet Patient Instructions: DI for Hypotension - Follow up Plan Follow up with: Abbie Graves MD [Primary Care Provider] - 1 week Disposition: [facility] Home Medications: Home Medications Medication Instructions Recorded Confirmed Type Aspirin [Aspir-Low] 81 mg PO DAILY 10/12/17 10/25/17 History Cholecalciferol (Vitamin D3) 2,000 unit PO DAILY 10/12/17 10/25/17 History [Vitamin D3 1,000 Unit Tab] Simvastatin 20 mg PO HS 10/12/17 10/25/17 History Bisacodyl [Dulcolax 10mg Supp] 10 mg RC DAILYP PRN 10/25/17 10/25/17 History Magnesium Hydroxid
== END 2017-10-26 11:02 ==
LOC: ER 12:49 → 2ND 13:48
PROVIDERS: Admitting Provider Family Medicine; Emergency Provider Emergency Medicine; Family Provider Family Medicine; PCP Family Medicine; Visit Provider Family Medicine
DX: E86.0 Dehydration (principal); I10 Essential (primary) hypertension; I48.91 Unspecified atrial fibrillation; I69.351 Hemiplegia and hemiparesis following cerebral infarction affecting right dominant side
CPT/HCPCS: 36415; 71045; 71275; 74177; 80053; 81001; 82550; 82553; 83605; 83880; 84443; 84484; 85025; 85651; 86140; 87040; 93005; 93041; 94640; 94760; 94761; 96365; 96366; 96375; 99283; G0378; Q9967

== ENCOUNTER → 2017-11-28 11:43 | Outpatient (CLI) | payer MEDICARE, OTHER, SELFPAY ==
--- NOTE | 2017-11-28 11:50 | XR_ITS ---
XR chest 2V HISTORY: Follow-up pneumonia ITS.REASON: PNEUMONIA ORDERING PHYSICIAN: Abbie Graves MD PATIENT AGE: 82 years COMPARISON: 10/25/2017 FINDINGS: There is cardiomegaly without failure. Cardiac pacemaker device remains present. Previously noted consolidation in the right perihilar region has improved. There are some minimal atelectatic changes in the right perihilar region with mild thickening of the minor fissure on the right. Patchy density is present in the central aspect of the right upper lobe suggesting an area of infiltrate. The left lung is clear. Degenerative changes are present in the thoracic spine. There is evidence of old granulomatous disease. IMPRESSION: 1. Improved right perihilar and right lower lobe pneumonia residual atelectatic changes in the right perihilar region and right lower lobe. 2. Patchy density in the right upper lobe centrally suggesting an area of infiltrate.
== END ==
PROVIDERS: PCP Family Medicine; Visit Provider Family Medicine
DX: J18.9 Pneumonia, unspecified organism (principal)
CPT/HCPCS: 71046

== ENCOUNTER → 2018-01-02 09:42 | Outpatient (CLI) | payer MEDICARE, OTHER, SELFPAY ==
--- NOTE | 2018-01-02 09:51 | XR_ITS ---
XR chest 2V HISTORY: Shortness of breath and coughing ITS.REASON: BRONCHITIS ORDERING PHYSICIAN: Nenita Tovar PATIENT AGE: 82 years COMPARISON: 11/28/2017 FINDINGS: There is cardiomegaly without failure. Bipolar pacemaker is present 4. Previously noted patchy density in the right upper lobe shown improvement. Chronic changes are present in the right midlung along the minor fissure area. No lobar consolidation or collapse. There is evidence of old granulomatous disease. Degenerative changes thoracic spine. IMPRESSION: 1. Improved right upper lobe pneumonia. 2. Chronic changes with cardiomegaly
== END ==
PROVIDERS: PCP Family Medicine; Visit Provider Nurse Practitioner
DX: J40 Bronchitis, not specified as acute or chronic (principal)
CPT/HCPCS: 71046

== ENCOUNTER → 2018-01-30 10:39 | Outpatient (CLI) | payer MEDICARE, OTHER, SELFPAY ==
--- NOTE | 2018-01-30 10:47 | XR_ITS ---
XR chest 2V HISTORY: ITS.REASON: RAMO RALES ORDERING PHYSICIAN: Nenita Tovar PATIENT AGE: 83 years COMPARISON: 01/02/2018 FINDINGS: There is mild cardiomegaly without failure. Bipolar pacemaker is present. Increasing atelectatic changes are present along the right minor fissure. There is some increase in hilar density on the right. The remaining lungs are clear. Degenerative changes are present in the thoracic spine. IMPRESSION: Cardiomegaly with increasing atelectatic change in the right perihilar region
== END ==
PROVIDERS: PCP Family Medicine; Visit Provider Nurse Practitioner
DX: R09.89 Other specified symptoms and signs involving the circulatory and respiratory systems (principal)
CPT/HCPCS: 71046

== ENCOUNTER 2018-03-10 20:03 | Observation (INO) ==
[2018-03-10 20:27] LABS: Microscopic, Urine URINE MICROSCOPIC (MICROSCOPIC)
[2018-03-10 20:28] LABS: Appearance,Urine CLEAR (Clear); Bilirubin,Urine Negative (Negative); Blood, Urine 2+ (Negative); Color,Urine YELLOW (Yellow); Glucose,Urine (UA) Negative (Negative); Ketones,Urine Negative (Negative); Leukocyte Esterase,Urine 1+ (Negative); Protein,Urine TRACE (Negative); Specific Gravity, Urine 1.015 (1.005-1.030); Urobilinogen,Urine 0.2 EU/dl (0.2)
[2018-03-10 20:47] LABS: Basophils % 0.5 % (0.1-2.0); Eosinophils # 0.1 K/mm3 (0.0-0.4); Eosinophils % 2.2 % (0.1-12.0); Hematocrit 36.6 % (37.0-47.0); Hemoglobin 12.7 g/dL (12.2-16.2); Lymphocytes # 2.3 K/mm3 (0.7-4.5); Lymphocytes % 39.8 K/mm3 (10-50); Mean Corpuscular HGB Conc 34.7 g/dL (31.8-35.4); Mean Corpuscular Volume 92.2 fl (81-99); Mean Platelet Volume 8.8 fl (7.4-10.4); Monocytes # 0.5 K/mm3 (0.1-1.0); Neutrophils # 2.9 K/mm3 (1.8-7.8); Neutrophils % 49.5 % (37.0-80.0); Platelet Count 120 K/mm3 (142-424); Red Blood Count 3.97 M/mm3 (4.20-5.40); Red Cell Distribution Width 13.7 % (11.5-17.5); White Blood Count 5.8 K/mm3 (4.8-10.8)
--- NOTE | 2018-03-10 20:57 | Emergency Department Note ---
ED Disposition Clinical Impression: CHF exacerbation Qualifiers: Heart failure type: unspecified Qualified Code(s): I50.9 - Heart failure, unspecified Disposition: Admitted As Inpatient Condition on Discharge: Fair Time of Disposition: 21:39 - Critical Care Critical Care Time: Yes Attestation: On , the high probability of a clinically significant, sudden or life threatening deterioration of the following system(s) required my full and direct attention, intervention and personal management. The time I documented below is in addition to time spent performing reported procedures but includes the following listed in this critical care notation. Total Critical Care Time: 45 Vital system(s) involved:: Circulatory Failure My critical care processes included: Assessment & monitoring of V/S, Initial and Re-exams, Data Review/Interpretation, Coordinating Care, Medication Orders and management, Documentation Medical Decision Making - Medical Records Medical records reviewed: Yes: I reviewed the patient's medical records. - Ted Inquiry Pt receiving controlled substance: No Vital Signs: 03/10/18 20:03 03/10/18 20:13 03/10/18 20:23 Temperature 97.8 F 98.4 F Temperature Source Oral Oral Pulse Rate Pulse Rate [Right Radial] 88 70 Respiratory Rate 20 16 Blood Pressure Blood Pressure [Right Arm] 175/88 148/110 Blood Pressure Mean [Right Arm] 117 122 Blood Pressure Source Blood Pressure Source [Right Arm] Automatic Cuff Blood Pressure Position Blood Pressure Position [Right Arm] Sitting 02 Sat by Pulse Oximetry 96 96 Oxygen Delivery Method Room Air Room Air 03/10/18 22:45 Temperature 98.4 F Temperature Source Pulse Rate 70 Pulse Rate [Right Radial] Respiratory Rate 16 Blood Pressure 148/110 Blood Pressure [Right Arm] Blood Pressure Mean [Right Arm] Blood Pressure Source Automatic Cuff Blood Pressure Source [Right Arm] Blood Pressure Position Sitting Blood Pressure Position [Right Arm] 02 Sat by Pulse Oximetry Oxygen Delivery Method Room Air - Lab Data Lab results reviewed: Yes: I reviewed the patient's lab results. Lab Results 03/10/18 20:20: Urine Color Yellow, Urine Appearance Clear, Urine pH 6.0, Ur Specific [place] 1.015, Urine Protein Trace, Urine Glucose (UA) Negative, Urine Ketones Negative, Urine Blood 2+, Urine Nitrate Negative, Urine Bilirubin Negative, Urine Urobilinogen 0.2, Ur Leukocyte Esterase 1+ A, Urine RBC 5-10, Urine WBC 10-20, Ur Squamous Epith Cells 5-10, WBC Casts 3-5 03/10/18 20:34: WBC 5.8, RBC 3.97 L, Hgb 12.7, Hct 36.6 L, MCV 92.2, MCH 32.0 H , MCHC 34.7, RDW 13.7, Plt Count 120 L, MPV 8.8, Neut % (Auto) 49.5, Lymph % ( Auto) 39.8, [place] % (Auto) 8.0, Eos % (Auto) 2.2, Baso % (Auto) 0.5, Neut # (Auto ) 2.9, Lymph # (Auto) 2.3, [place] # (Auto) 0.5, Eos # (Auto) 0.1, Baso # (Auto) 0.0 03/10/18 20:34: Sodium 145, Potassium 3.5, Chloride 107, Carbon Dioxide 31, Anion Gap 10.5, BUN 20 H, Creatinine 1.07 H, Estimated Creat Clear 46, Estimated GFR 49 L, Est GFR ( Amer) 59, Glucose 140 H, Calcium 8.9, Total Bilirubin 1.2 H, AST 25, ALT 20, Alkaline Phosphatase 59, Total Creatine Kinase 61, CK-MB (CK-2) 0.8 D, CK-MB (CK-2) Rel Index 1.3, Troponin I < 0.02, Total Protein 7.1, Albumin 3.4, Globulin 3.7 H, Albumin/Globulin Ratio 0.9 L 03/10/18 20:34: Lactic Acid 1.1 03/10/18 20:34: B-Natriuretic Peptide 353 H Result diagrams: 03/10/18 20:34 03/10/18 20:34 Orders (Tests/Meds): ED MEDICATIONS Generic Name Dose Route Start Last Admin Trade Name Freq PRN Reason Stop Dose Admin Albuterol/Ipratropium 3 ml 03/11/18 09:00 Duoneb 3ml Neb IH 04/10/18 08:59 QID ADAL Aspirin 81 mg 03/11/18 09:00 Aspirin 81mg Enteric Coated Tablet PO 04/10/18 08:59 DAILY ADAL Carvedilol mg 03/11/18 09:00 Coreg 12.5mg Tablet PO 04/10/18 08:59 BID ADAL Loratadine 10 mg 03/11/18 09:00 Claritin 10mg Tablet PO 04/10/18 08:59 DAILY ADAL Non-Formulary Medication 200 mcg 03/11/18 09:00 Levothyroxine Sodium [Levothyroxine 200mcg (0.2mg) Tab] PO 04/10/18 08:59 DAILY ADAL Non-Formulary Medication 7.5 ml 03/10/18 22:27 Promethazine Hcl/Codeine [Prometh-Codein 6.25-10 Mg/5 Ml] PO QID PRN Cough Non-Formulary Medication 20 mg 03/11/18 21:00 Simvastatin [Simvastatin] PO 04/10/18 20:59 HS ADAL Non-Formulary Medication 1 tab 03/11/18 09:00 Vit D3-Vit K/Berberine/Hops [Ostera Tablet] PO 04/10/18 08:59 DAILY ADAL Sodium Chloride 3 ml 03/10/18 22:27 Sodium Chloride 3% 15ml [facility] 04/09/18 20:12 ONCE PRN INDUCE SPUTUM COLLECTION Discontinued Medications Generic Name Dose Route Start Last Admin Trade Name Freq PRN Reason Stop Dose Admin Albuterol/Ipratropium 3 ml 03/10/18 20:13 03/10/18 20:29 Duoneb 3ml [facility] 03/10/18 20:14 3 ml ONCE ONE Administration Furosemide 40 mg 03/10/18 21:20 03/10/18 21:28 Lasix 20mg/2ml Vial IV 03/10/18 21:21 40 mg ONCE ONE Administration Furosemide 40 mg 03/10/18 21:24 03/10/18 21:29 Lasix 40mg/4ml Vial IV 03/10/18 21:25 Not Given ONCE ONE Methylprednisolone Sodium Succinate 125 mg 03/10/18 20:13 03/10/18 20:29 Solu-Medrol 125mg/2ml Vial IV 03/10/18 20:14 125 mg ONCE ONE Administration Sodium Chloride 3 ml 03/10/18 20:13 Sodium Chloride 3% 15ml [facility] 04/09/18 20:12 ONCE PRN INDUCE SPUTUM COLLECTION ORDERS Category Date Time Status Troponin I Q6H Lab 03/11/18 04:27 Ordered Troponin I Q6H Lab 03/11/18 10:27 Ordered Sputum Culture & Gram Stain Stat Micro 03/10/18 20:13 Ordered Urine Culture Stat Micro 03/10/18 20:20 Received 12-lead EKG Request [ECG Request by /Aniyah] Stat Y 03/10/18 20:14 Stop Req CA echo doppler complete Routine Y 03/10/18 22:27 Stop Req CA echo doppler complete Routine Y 03/11/18 08:30 Ordered - Radiology Data #1 Image(s): Chest Image Reviewed: Yes I reviewed the patient's radiology results, Yes I reviewed the patient's radiology image Preliminary Findings: Abnormal [place] [id number] [place] [address] XRay Report Signed Patient: Jadyn Alan MR#: [id number] : 1935 Acct:[id number] Age/Sex: 83 / F ADM Date: 03/10/18 Loc: ER Attending Dr: Ordering Physician: Daniel Jay MD Date of Service: 03/10/18 Procedure(s): XR chest portable Accession Number(s): [id number] cc: Abbie Graves MD; Bonifacio Vaca ~ XR chest portable Ordering Physician: Daniel Jay MD Patient Age: 83 years: Female HISTORY: ITS.REASON: difficulty breathing Current Difficulty with breathing. Wheezing 3 days. Has a pacemaker and 5 cardiac stents. states history of COPD. Never smoker but secondhand TECHNIQUE: AP portable upright chest COMPARISON :Previous CXR 01/30/2018. Also 10/25/2017. FINDINGS Prominent cardiomegaly . Heart size appears slightly larger than November and January but this may be in part due portable chest technique. Pacemaker overlying left chest with atrial and ventricular leads appearing intact. Stable. There is mild vascular congestion likely mild CHF suspect superimposed upon chronic lung changes COPD. There is additional fluid outlining the minor fissure on the right.. Metastatic significant pleural effusions otherwise evident. Only questionable blunting toward CP angles. Difficult to exclude early infiltrate towards the right base noted increased markings at right base on today's study. Chronic markings have been seen here before but markings are slightly accentuated today. This could reflect mild vascular congestion and mild interstitial edema accentuating interstitial markings here. Along with technique. Tortuous aorta. Chest wall unremarkable. Arthritic changes at shoulders. IMPRESSION-- 1. Cardiomegaly. Suspect mild Vascular congestion,., subtle CHF superimposed upon chronic changes and COPD. Fluid outlines the minor fissure on today's study with mild atelectasis. Question subtle additional interstitial infiltrate towards right lung base, although this could reflect mild CHF yielding mild interstitial edema superimposed accentuated previously evident chronic lung changes here at right base Dictated By: Bonifacio Vaca Signed By: <Electronically signed by Bonifacio Vaca in OV> 03/10/182108 DD/ 56 - ECG Data Tracing #1 I reviewed this ECG and interpreted as documented below: paced rhythm, rate 88, no acute ischemia ECG normal with no acute: arrhythmias, ischemia, conduction abnormalities, chamber hypertrophy Normal Sinus Rhythm: No - Physician Consults Physician Consulted: Dr Segundo covering for Dr. Graves Time: 21:39 Reason -: Admission, Pt condition Comment/Response: Advise of patient's presentation findings, agreeable with admission. Dr. Segundo requested a 2D echocardiogram in the morning, to assess patient's ejection fraction. - Reevaluation(s) Time: 21:30 Reevaluation #1: After receiving IV Lasix the patient feels significantly better. She is medically stable, in no acute distress, with less wheezing. Resp/SOB HPI - General Chief Complaint: Shortness of Breath/Dyspnea Stated Complaint: shortness of breath Time Seen by Provider: 03/10/18 20:15 Mode of Arrival: Wheelchair Source of Information: Patient Limitations: No Limitations Description of Symptoms (Recalled from ER Triage Doc. by RN): Pt reports weakness that started at 7am this morning with difficulty breathing. Pt states she was feeling better than got weak again and the difficulty breathing became worse - History of Present Illness Patient is an 83-year-old pleasant lady presenting to the emergency room with shortness of breath since earlier this morning. Patient has any chest pain, denies any palpitations, however her dyspnea appears to be more exertional in nature. Family advised that she has lost her 2nd son, just recently, and she has been under tremendous amount of stress. Patient noticed her ankles to be more swollen than usual, recently. MD Complaint: shortness of breath, cough Onset (ago): hour(s) (12) Context: recent illness Severity: mild Consistency/Duration: intermittent Relieving factors: rest, upright position Exacerbating factors: lying flat, exertion Known history of: congestive heart failure Associated symptoms: wheezing Treatment prior to arrival: none - Related Data Home oxygen amount: none Home Medications Medication Instructions Recorded Confirmed Aspirin [Aspir-Low] 81 mg PO DAILY 10/12/17 03/10/18 Simvastatin 20 mg PO HS 10/12/17 03/10/18 Carvedilol [Carvedilol 12.5mg Tab] 12.5 tab PO BID 03/10/18 03/10/18 Furosemide [Furosemide 20mg Tab] 10 mg PO DAILY 03/10/18 03/10/18 Furosemide [Furosemide 20mg Tab] 20 mg PO DAILY 03/10/18 03/10/18 Levothyroxine Sodium 200 mcg PO DAILY 03/10/18 03/10/18 [Levothyroxine 200mcg (0.2mg) Tab] Loratadine [Allergy Relief] 10 mg PO DAILY 03/10/18 03/10/18 Promethazine HCl/Codeine 7.5 ml PO QID PRN 03/10/18 03/10/18 [Prometh-Codein 6.25-10 mg/5 ml] Vit D3-Vit K/[place]/Hops 1 tab PO DAILY 03/10/18 03/10/18 [Ostera Tablet] Previous Rx's Medication Instructions Recorded Ipratropium/Albuterol Sulfate 3 ml IH TID #90 ampul.neb 10/23/17 [Duoneb 3mL neb] Allergies Allergy/AdvReac Type Severity Reaction Status Date / Time Azithromycin Allergy Unknown Uncoded 09/04/17 14:41 From Penicillin V Potassium Allergy Unknown Uncoded 09/04/17 14:41 Penicillin Allergy Unknown Uncoded 09/04/17 14:41 [facility] History I have reviewed the patient's past medical history: Yes Medical History: Reports:: Atrial Fibrillation, Cerebrovascular Accident (right side), Hyperlipidemia, Hypertension, Internal Pacemaker Denies:: Cancer, Diabetes Mellitus Type 1, Diabetes Mellitus Type 2, MRSA Other Medical History: Reports: Arthritis, Hypothyroidism, Thyroid Disease Other Surgeries: Yes: Hysterectomy-Total, Pacemaker, Other (Cholecystectomy) Amputation: No Fractures: No - Social History Smoking Status: Never smoker Alcohol Intake: never Occupational Status: employed Housing: house - Psychiatric History Expresses thoughts of harming self/others: None Suicide Plan Description: No Plan Family Hx:: Cancer, Heart Attack, Stroke ROS Obtained: Yes All systems reviewed & no additional complaints, Yes Systems reviewed as appropriate & no additional complaints - Respiratory Respiratory: Yes system reviewed and no additional complaints, except as docu, Yes as per HPI, Yes dyspnea, Yes dyspnea on exertion Physical Exam - General General appearance: alert, in distress (moderate) - Head Head exam: atraumatic, normocephalic, normal inspection - Neck Neck exam: Present: normal inspection, full ROM, trachea midline. Absent: meningismus, lymphadenopathy - Chest Chest inspection: Present: normal inspection, symmetric chest wall rise. Absent : tenderness - Respiratory Respiratory exam: Present: respiratory distress (mild), wheezes - Cardiovascular Cardiovascular exam: Present: regular rate, normal rhythm. Absent: JVD - Abdominal Exam Abdominal exam: Present: soft, normal bowel sounds. Absent: distention, tenderness, guarding - Extremities Exam Extremities exam: Present: normal inspection, full ROM, normal capillary refill. Absent: calf tenderness - Back Exam Back exam: Present: normal inspection. Absent: tenderness - Neurological Exam Neurological exam: Present: alert, oriented X3 - Psychiatric Psychiatric exam: Present: normal affect, normal mood - Skin Skin exam: Present: warm, dry, intact, normal color
[2018-03-10 21:14] LABS: Alanine Aminotransferase 20 U/L (12-78); Albumin Level 3.4 gm/dL (3.4-5.0); Albumin/Globulin Ratio 0.9 (1.1-1.8); Alkaline Phosphatase 59 U/L (46-116); Anion Gap 10.5 mEq/L (5-15); Aspartate Amino Transferase 25 U/L (15-37); Bilirubin,Total 1.2 mg/dL (0.2-1.0); Blood Urea Nitrogen 20 mg/dL (7-18); Calcium 8.9 mg/dL (8.5-10.1); Carbon Dioxide 31 mmol/L (21.0-32.0); Chloride 107 mmol/L (98-107); Creatine Kinase 61 U/L (26-192); Globulin 3.7 gm/dl (1.3-3.2); Glucose 140 mg/dL (74-106); Potassium 3.5 mmoL/L (3.5-5.1); Sodium 145 mmol/L (136-145); Total Protein,Serum 7.1 gm/dL (6.4-8.2)
--- NOTE | 2018-03-11 08:07 | Pharmacy Consult Notes ---
[facility] Pharmacy VTE Monitoring - Patient Demographics Admission date: 03/10/18 Report Date: 03/11/18 Time: 08:06 Allergies/Adverse Reactions: Patient Allergies Azithromycin Allergy (Unknown, Uncoded 09/04/17 14:41) From Penicillin V Potassium Allergy (Unknown, Uncoded 09/04/17 14:41) Penicillin Allergy (Unknown, Uncoded 09/04/17 14:41) Height: 1.6 m Weight: 72.575 kg Patient Problems: Current Active Problems CHF exacerbation (Acute) - VTE Risk Labs: VTE Related Lab Results Hgb 12.7 g/dL (12.2-16.2) 03/10/18 20:34 Hct 36.6 % (37.0-47.0) L 03/10/18 20:34 Plt Count 120 K/mm3 (142-424) L 03/10/18 20:34 BUN 20 mg/dL (7-18) H 03/10/18 20:34 Creatinine 1.07 mg/dL (0.55-1.02) H 03/10/18 20:34 Estimated Creat Clear 46 mL/min (0-300) 03/10/18 20:34 Was VTE Risk Assessment Performed: Yes VTE Score: 7 VTE Risk Level: Moderate Risk - Prophylaxis VTE Prophylaxis Ordered?: Yes Types of VTE Prophylaxis: TEDS Knee High Location of Applied Device: Bilateral Lower Extremeties - VTE Diagnosis Confirmed Treatment or plan recommended: Continue Current Treatment
--- NOTE | 2018-03-11 08:58 | History & Physical Report ---
*Admission Date: 03/10/18 *Chief complaint: SOB *History of present illness: Ms. Alan is an 83-year-old white female with a history of hypothyroidism hypertension atrial fibrillation and stroke on the right side is not felt well the past 2 days. She has been using her duo nebs 3 times a day without much help. Her daughter came to see her last evening and insisted that she come to the emergency room. Patient denies having any chest pain, heart palpitations, cough, or fever. She has not been eating well although she has not been nauseated and has had no vomiting. Bowels have been moving normally. She was a little unsteady on her feet and had started to use her walker for ambulation. In the emergency room she was felt to be in congestive heart failure. She was given IV Lasix to which she responded well. Troponin I's have been negative 3. This a.m. she feels tremendously better. Continually denies any chest pain and cough. She would like to go home today. [facility] History Medical History: Reports:: Arrhythmia, Atrial Fibrillation, Congestive Heart Failure, Cerebrovascular Accident (right side), Hyperlipidemia, Hypertension, Internal Pacemaker, Myocardial Infarction Denies:: Cancer, Diabetes Mellitus Type 1, Diabetes Mellitus Type 2, MRSA Other Medical History: Reports: Arthritis, Cataracts, Hypothyroidism, Thyroid Disease Laterality Cases: Left: Cataract Other Surgeries: Yes: Cardiac Catheterization, Hysterectomy-Total, Pacemaker, Other (Cholecystectomy) Amputation: No Fractures: No - *Social History Educational Level: Completed High School Smoking Status: Never smoker Alcohol Intake: never Occupational Status: employed Housing: house Household Members: none - Psychiatric History Expresses thoughts of harming self/others: None Suicide Plan Description: No Plan *Family Hx:: Cancer, Heart Attack, Stroke Review of Systems - Constitutional Reports fatigue, Reports lack of energy, Denies body ache(s), Denies fever(s) - ENT Reports dizziness, Denies ear pain, Denies headache(s), Denies nasal congestion , Denies sore throat - *Cardiovascular Reports shortness of breath, Reports leg swelling, Denies irregular heart rhythm - *Respiratory Reports shortness of breath, Denies chest congestion, Denies cough, Denies coughing up blood - *Gastrointestinal Denies heartburn, Denies nausea, Denies vomiting Comments: Has not been eating well for the past 2 days due to her shortness of breath. - *Genitourinary Denies difficulty urinating - *Musculoskeletal Denies joint pain Comments: She has been unsteady with her ambulation and has been using her walker. - *Neurologic Reports abnormal walking, Reports unsteadiness Meds Home Medications Medication Instructions Recorded Confirmed Type Aspirin [Aspir-Low] 81 mg PO DAILY 10/12/17 03/10/18 History Simvastatin 20 mg PO HS 10/12/17 03/10/18 History Carvedilol [Carvedilol 12.5mg Tab] 12.5 mg PO BID 03/10/18 03/11/18 History Furosemide [Furosemide 20mg Tab] 10 mg PO DAILY 03/10/18 03/10/18 History Furosemide [Furosemide 20mg Tab] 20 mg PO DAILY 03/10/18 03/10/18 History Levothyroxine Sodium 200 mcg PO DAILY 03/10/18 03/10/18 History [Levothyroxine 200mcg (0.2mg) Tab] Loratadine [Allergy Relief] 10 mg PO DAILY 03/10/18 03/10/18 History Promethazine HCl/Codeine 7.5 ml PO QID PRN 03/10/18 03/10/18 History [Prometh-Codein 6.25-10 mg/5 ml] Vit D3-Vit K/[place]/Hops 1 tab PO DAILY 03/10/18 03/10/18 History [Ostera Tablet] Allergies Allergy/AdvReac Type Severity Reaction Status Date / Time Azithromycin Allergy Unknown Uncoded 09/04/17 14:41 From Penicillin V Potassium Allergy Unknown Uncoded 09/04/17 14:41 Penicillin Allergy Unknown Uncoded 09/04/17 14:41 Exam Vital signs and Labs for Last 24 Hours: Temp Pulse Resp BP Pulse Ox 98.2 F 65 18 151/82 97 03/11/18 07:46 03/11/18 07:46 03/11/18 07:46 03/11/18 07:46 03/11/18 08:07 Laboratory Results - last 24 hr 03/10/18 20:20: Urine Color Yellow, Urine Appearance Clear, Urine pH 6.0, Ur Specific [place] 1.015, Urine Protein Trace, Urine Glucose (UA) Negative, Urine Ketones Negative, Urine Blood 2+, Urine Nitrate Negative, Urine Bilirubin Negative, Urine Urobilinogen 0.2, Ur Leukocyte Esterase 1+ A, Urine RBC 5-10, Urine WBC 10-20, Ur Squamous Epith Cells 5-10, WBC Casts 3-5 03/10/18 20:34: WBC 5.8, RBC 3.97 L, Hgb 12.7, Hct 36.6 L, MCV 92.2, MCH 32.0 H , MCHC 34.7, RDW 13.7, Plt Count 120 L, MPV 8.8, Neut % (Auto) 49.5, Lymph % ( Auto) 39.8, [place] % (Auto) 8.0, Eos % (Auto) 2.2, Baso % (Auto) 0.5, Neut # (Auto ) 2.9, Lymph # (Auto) 2.3, [place] # (Auto) 0.5, Eos # (Auto) 0.1, Baso # (Auto) 0.0 03/10/18 20:34: Sodium 145, Potassium 3.5, Chloride 107, Carbon Dioxide 31, Anion Gap 10.5, BUN 20 H, Creatinine 1.07 H, Estimated Creat Clear 46, Estimated GFR 49 L, Est GFR ( Amer) 59, Glucose 140 H, Calcium 8.9, Total Bilirubin 1.2 H, AST 25, ALT 20, Alkaline Phosphatase 59, Total Creatine Kinase 61, CK-MB (CK-2) 0.8 D, CK-MB (CK-2) Rel Index 1.3, Troponin I < 0.02, Total Protein 7.1, Albumin 3.4, Globulin 3.7 H, Albumin/Globulin Ratio 0.9 L 03/10/18 20:34: Lactic Acid 1.1 03/10/18 20:34: B-Natriuretic Peptide 353 H 03/10/18 23:33: Troponin I < 0.02 03/11/18 04:20: Troponin I < 0.02 I & O for Last 24 hours: Intake & Output 03/08/18 03/09/18 03/10/18 03/11/18 11:59 11:59 11:59 11:59 Output Total 3100 / 3100 Balance -3100 / -3100 Weight 160 lb Microbiology Reports for the Last 24 Hours: Microbiology 03/10/18 20:20 Urine,Clean Catch Urine Culture - Preliminary Gram Negative Rods Radiology Reports for the Last 24 Hours: Chest x-ray 03/10/2018 IMPRESSION-- 1. Cardiomegaly. Suspect mild Vascular congestion,., subtle CHF superimposed upon chronic changes and COPD. Fluid outlines the minor fissure on today's study with mild atelectasis. Question subtle additional interstitial infiltrate towards right lung base, although this could reflect mild CHF yielding mild interstitial edema superimposed accentuated previously evident chronic lung changes here at right base - Constitutional no acute distress Comments: Sitting on the bedside eating her breakfast. - *Routine HEENT Exam Head: Present: normocephalic, atraumatic Eye: Present: PERRL. Absent: conjunctival icterus, scleral injection ENT: Present: mucous membranes moist, oropharynx clear - *Routine Neck Exam Present: supple, full ROM. Absent: carotid bruit, lymphadenopathy, thyromegaly - *Routine Respiratory Exam Comments: Posterior fine crackles bilaterally. Decreased breath sounds on the right. - *Routine Cardiovascular Exam Present: RRR - *Routine Abdominal Exam Present: soft, normoactive bowel sounds. Absent: tenderness - *Routine Extremities Exam Present: edema. Absent: calf tenderness - *Routine Neurological Exam Present: alert, oriented X3 H&P: Result - Labs Labs: Short CBC 03/10/18 Range/Units 20:34 WBC 5.8 (4.8-10.8) K/mm3 Hgb 12.7 (12.2-16.2) g/dL Hct 36.6 L (37.0-47.0) % Plt Count 120 L (142-424) K/mm3 BMP 03/10/18 20:34 Sodium 145 Potassium 3.5 Chloride 107 Carbon Dioxide 31 BUN 20 H Creatinine 1.07 H Glucose 140 H Calcium 8.9 Cardiac Enzymes 03/10/18 03/10/18 03/11/18 Range/Units 20:34 23:33 04:20 Total Creatine Kinase 61 (26-192) U/L CK-MB (CK-2) 0.8 D (0.0-3.6) ng/ml Troponin I < 0.02 < 0.02 < 0.02 (0.00-0.06) ng/ml Liver Function 03/10/18 Range/Units 20:34 Total Bilirubin 1.2 H (0.2-1.0) mg/dL AST 25 (15-37) U/L ALT 20 (12-78) U/L Alkaline Phosphatase 59 (46-116) U/L Albumin 3.4 (3.4-5.0) gm/dL Urine 03/10/18 Range/Units 20:20 Urine Color Yellow (Yellow) Urine Appearance Clear (Clear) Urine pH 6.0 (5.0-8.5) Ur Specific [place] 1.015 (1.005-1.030) Urine Protein Trace (Negative) Urine Glucose (UA) Negative (Negative) Assessment and Plan (1) Congestive heart failure (CHF) Current visit: No Status: Acute Category: Medical Code(s): I50.9 - Heart failure, unspecified (2) Hyperlipemia Current visit: No Status: Chronic Category: Medical Code(s): E78.5 - Hyperlipidemia, unspecified (3) Hypertension Current visit: No Status: Chronic Category: Medical Code(s): I10 - Essential (primary) hypertension (4) Hypothyroid Current visit: No Status: Chronic Category: Medical Code(s): E03.9 - Hypothyroidism, unspecified - Assessment and plan all Dx Assessment and Plan for all problems:: We will continue with diuresis. Will repeat chest x-ray today.
--- NOTE | 2018-03-11 20:17 | Cardiology Report ---
PROCEDURE: 2-D M-mode and color Doppler study INDICATIONS FOR THE TEST: Chest pain COPD Heart Murmur Tobacco Smoking Palpitations Fatigue Syncope Edema+ Hypertension+Diabetes Mellitus Rheumatic Fever SOB+TODD Obesity Hyperlipidemia+ Family History HD Additional History PACER, AFIB PATIENT INFORMATION HEIGHT: 63 WEIGHT:160 GENDER: Female B/P:148/110 2-D/M-MODE INTERPRETATION: 2-D MEASUREMENTS OBSERVED VALUES IN CMS Right Ventricular Dimension (RVDd) 2.6 Interventricular Septum (Thickness)(IVsd) 1.8 Left Ventricular Internal Dimensions(LVIDd) 5.1 Left Ventricular Posterior Wall (Thickness)(LVPWd) 1.0 Aortic Root 2.6 Aortic Cusp Separation 1.7 Left Atrial Dimensions (LAD) 4.9 2D 1. Left atrium is moderately enlarged, left ventricle is normal size, mild concentric left ventricular hypertrophy, visually estimated ejection fraction 55% with no obvious regional wall motion abnormality. 2. The right atrium is moderately enlarged, right ventricle is mildly dilated with normal contractility, there is a pacemaker lead seen in the right atrium and right ventricle. 3. The aortic valve is minimally thickened and fibrosed. 4. The mitral and tricuspid valve leaflets are minimally thickened 5. The pulmonic valve is poorly visualized. 6. No significant pericardial effusion noted. DOPPLER INTERROGATION: Doppler interrogation of the aortic, mitral and tricuspid valvular presence of moderate mitral and moderate tricuspid regurgitation, calculated right ventricular systolic pressure is 58 mmHg consistent with moderate pulmonary hypertension. CONCLUSION: 1. Moderate biatrial enlargement, normal left ventricular size, mild concentric left ventricular hypertrophy, visually estimated ejection fraction 55% with no obvious regional wall motion abnormality, diastolic parameters are inconclusive. 2. Mildly enlarged right ventricle with normal contractility. 3. Moderate mitral and tricuspid regurgitation, calculated right ventricular systolic pressure is 58 mmHg consistent with moderate pulmonary hypertension. 4. No significant pericardial effusion noted.
[2018-03-12 07:51] VITALS: BP 133/65
--- NOTE | 2018-03-12 08:48 | Progress Note ---
Internal Medicine - PN: Subj *Date: 03/12/18 *Time: 08:51 Interval history: Feeling much better today. Did sleep at intervals. Denies shortness of breath and chest pain. Is eating satisfactory and as usual. Has ambulated in the room. Exam Vital signs and Labs for Last 24 Hours: Temp Pulse Resp BP Pulse Ox 97.8 F 79 18 133/65 99 03/12/18 07:49 03/12/18 07:49 03/12/18 07:49 03/12/18 07:49 03/12/18 07:49 Laboratory Results - last 24 hr 03/11/18 10:20: Troponin I < 0.02 I & O for Last 24 hours: Intake & Output 03/09/18 03/10/18 03/11/18 03/12/18 11:59 11:59 11:59 11:59 Intake Total 1930 / 1930 Output Total 3100 / 3100 1700 / 1700 Balance -3100 / -3100 230 / 230 Weight 160 lb 160 lb Microbiology Reports for the Last 24 Hours: Microbiology 03/10/18 20:20 Urine,Clean Catch Urine Culture - Final Escherichia coli - Constitutional no acute distress - *Routine Respiratory Exam Present: CTA bilaterally (Anteriorly and posteriorly) - *Routine Cardiovascular Exam Present: RRR - *Routine Abdominal Exam Present: soft, normoactive bowel sounds. Absent: tenderness - *Routine Extremities Exam Present: edema (Trace; right leg is larger than left.) - *Routine Neurological Exam Present: alert, oriented X3 (Anteriorly and posteriorly) Assessment and Plan (1) Congestive heart failure (CHF) Current visit: No Status: Acute Category: Medical Code(s): I50.9 - Heart failure, unspecified (2) Hyperlipemia Current visit: No Status: Chronic Category: Medical Code(s): E78.5 - Hyperlipidemia, unspecified (3) Hypertension Current visit: No Status: Chronic Category: Medical Code(s): I10 - Essential (primary) hypertension (4) Hypothyroid Current visit: No Status: Chronic Category: Medical Code(s): E03.9 - Hypothyroidism, unspecified - Assessment and plan all Dx Assessment and Plan for all problems:: Will discharge to home today
--- NOTE | 2018-03-12 15:49 | Discharge Summary ---
General - General Admission date:: 03/10/18 Discharge date: 03/12/18 HPI HPI: Ms. Alan is an 83-year-old white female with a history of hypothyroidism, hypertension, atrial fibrillation, and stroke on the right side who has not felt well the past 2 days. She has been using her duo nebs 3 times a day without much help. Her daughter came to see her last evening and insisted that she come to the emergency room. Patient denies having any chest pain, heart palpitations, cough, or fever. She has not been eating well although she has not been nauseated and has had no vomiting. Bowels have been moving normally. She was a little unsteady on her feet and had started to use her walker for ambulation. In the emergency room she was felt to be in congestive heart failure. She was given IV Lasix to which she responded well. Troponin I's have been negative 3. This a.m. she feels tremendously better. Continually denies any chest pain and cough. She would like to go home today. Hospital Course Hospital Course: The patient's CXR showed CHF. She was diuresed and improved. Her Echo showed a moderate biatrial enlargement, normal left ventricular size, mild concentric left ventricular hypertrophy, and a visually estimated ejection fraction 55% with no obvious regional wall motion abnormality. She was stable to be discharged home. Her urine cx did show E. Coli therfore she was discharged home on levaquin. Objective Vital signs: Temp Pulse Resp BP Pulse Ox 97.8 F 84 18 133/65 99 03/12/18 07:49 03/12/18 09:44 03/12/18 07:49 03/12/18 07:49 03/12/18 07:49 Narrative: - Constitutional no acute distress Comments: Sitting on the bedside eating her breakfast. - *Routine HEENT Exam Head: Present: normocephalic, atraumatic Eye: Present: PERRL. Absent: conjunctival icterus, scleral injection ENT: Present: mucous membranes moist, oropharynx clear - *Routine Neck Exam Present: supple, full ROM. Absent: carotid bruit, lymphadenopathy, thyromegaly - *Routine Respiratory Exam Comments: Posterior fine crackles bilaterally. Decreased breath sounds on the right. - *Routine Cardiovascular Exam Present: RRR - *Routine Abdominal Exam Present: soft, normoactive bowel sounds. Absent: tenderness - *Routine Extremities Exam Present: edema. Absent: calf tenderness - *Routine Neurological Exam Present: alert, oriented X3 DS: Diagnosis - Discharge Diagnosis (1) Congestive heart failure (CHF) Status: Acute (2) Hyperlipemia Status: Chronic (3) Hypertension Status: Chronic (4) Hypothyroid Status: Chronic Discharge Plan - Patient Discharge Instructions ACTIVITY: Continue current activity Patient Instructions: Heart Failure, Low-Sodium Diet - Follow up Plan Follow up with: Abbie Graves MD [Primary Care Provider] - 1 week Disposition: Home, Self-Residential Medications: Home Medications Medication Instructions Recorded Confirmed Type Aspirin [Aspir-Low] 81 mg PO DAILY 10/12/17 03/10/18 History Simvastatin 20 mg PO HS 10/12/17 03/10/18 History Carvedilol [Carvedilol 12.5mg Tab] 12.5 mg PO BID 03/10/18 03/11/18 History Furosemide [Furosemide 20mg Tab] 20 mg PO DAILY 03/10/18 03/10/18 History Levothyroxine Sodium 200 mcg PO DAILY 03/10/18 03/10/18 History [Levothyroxine 200mcg (0.2mg) Tab] Loratadine [Allergy Relief] 10 mg PO DAILY 03/10/18 03/10/18 History Promethazine HCl/Codeine 7.5 ml PO QID PRN 03/10/18 03/10/18 History [Prometh-Codein 6.25-10 mg/5 ml] Vit D3-Vit K/Berberine/Hops 1 tab PO DAILY 03/10/18 03/10/18 History [Ostera Tablet] Prescriptions/Medication Reconciliation: New levoFLOXacin [Levaquin 500mg tab] 500 mg PO DAILY #2 tab Continue Aspirin [Aspir-Low] 81 mg PO DAILY Ipratropium/Albuterol Sulfate [Duoneb 3mL neb] 3 ml IH TID #90 ampul.neb Loratadine [Allergy Relief] 10 mg PO DAILY Levothyroxine Sodium [Levothyroxine 200mcg (0.2mg) Tab] 200 mcg PO DAILY Carvedilol [Carvedilol 12.5mg Tab] 12.5 mg PO BID Promethazine HCl/Codeine [Prometh-Codein 6.25-10 mg/5 ml] 7.5 ml PO QID PRN PRN Reason: Cough Simvastatin 20 mg PO HS Furosemide [Furosemide 20mg Tab] 20 mg PO DAILY Vit D3-Vit K/Berberine/Hops [Ostera Tablet] 1 tab PO DAILY
== END 2018-03-12 10:45 | disposition home or self-care (01) ==
LOC: ER 20:03 → 2ND 20:03
PROVIDERS: ADMIT Family Medicine; ATTEND Family Medicine

== ENCOUNTER → 2018-06-25 13:01 | Outpatient (CLI) | payer MEDICARE, OTHER, SELFPAY ==
--- NOTE | 2018-06-25 13:06 | XR_ITS ---
XR chest 2V HISTORY: ITS.REASON: PNEUMONIA ORDERING PHYSICIAN: Nenita Tovar PATIENT AGE: 83 years COMPARISON: 03/11/2018 FINDINGS: There is mild cardiomegaly without failure. Bipolar pacemaker is present from left subclavian approach. There are degenerative changes of the thoracic spine with mild kyphosis superiorly unchanged. Chronic the kidney and is noted within the right minor fissure laterally. No lobar consolidation or collapse. IMPRESSION: Cardiomegaly with chronic change, no acute finding
== END ==
PROVIDERS: PCP Family Medicine; Visit Provider Nurse Practitioner
DX: J18.9 Pneumonia, unspecified organism (principal)
CPT/HCPCS: 71046

== ENCOUNTER → 2018-07-05 08:48 | Outpatient (CLI) | payer MEDICARE, OTHER, SELFPAY ==
--- NOTE | 2018-07-05 08:50 | MM_ITS ---
MM Dig screening mamm BI w/CAD ORDERING PHYSICIAN : Kevon Carpenter MD PATIENT AGE: 83 years GENDER: Female COMPARISON: Baseline screening study with no previous mammogram for comparison . Thus CT chest from October 25, 2017 used for comparison INDICATION: ITS.REASON: screening no hormones no new complaints. TECHNIQUE: Standard CC and MLO images were obtained. R2 CAD reviewed. FINDINGS: Low-density breast bilaterally with no dominant mass nor suspicious calcifications in either breast. The breasts are asymmetric left breast. With the right breast larger than left but there is no history of surgery but there is a pacemaker at the upper left chest projected over axillary RIGHT BREAST:No focal areas of significant concern Minimal vascular and minimal skin calcifications most evident at right breast LEFT BREAST:Small left breast with no areas of concern. Pacemaker projected over the superior most left breast. --------IMPRESSION: -------- Baseline mammogram.. . No suspicious mass or densities. No malignancy evident radiographically Bilateral follow-up one year Recommended BI-RADS Category: 1 Negative RECOMMENDED FOLLOW-UP: 1YR 1 YEAR FOLLOW-UP (A letter has been sent to the patient regarding results of the study.)
--- NOTE | 2018-07-05 08:50 | CT_ITS ---
CT abdomen pelvis wo con CLINICAL INDICATION: ITS.REASON: vulvar neoplasm ORDERING PHYSICIAN: Kevon Carpenter MD PATIENT AGE: 83 years COMPARISON: None TECHNIQUE: Axial images obtained with sagittal and coronal reformats. All CT scans at the facility use one or more dose reduction, viz: automated exposure control, ma/kV adjustment per patient size (including targeted exams where dose is matched to indication, i.e. head), or iterative reconstruction technique. PROCEDURE: Oral Contrast: Redicat IV Contrast: None . IV contrast not utilized due to patient's elevated creatinine of 1.9 FINDINGS: Lower thorax: Coronary artery calcifications are present. Abdomen and pelvis: Prior cholecystectomy. The liver, spleen, adrenal glands, and pancreas have an unremarkable unenhanced CT appearance. There is a 3 cm hypoattenuating lesion of the left kidney posteriorly consistent with a renal cyst. No renal or ureteral calculi or renal mass evident. Unremarkable appendix. Scattered colonic diverticula are present with no evidence of diverticulitis. No intestinal obstruction or free air. No abdominal or retroperitoneal adenopathy. There has been prior hysterectomy. No pelvic mass or abnormal fluid collection apparent. The most inferior aspect of the labia are not imaged. If this is an area of clinical concern then additional images can be performed through this area at no additional charge. No acute bony anomalies. IMPRESSION: 1. No acute abdominal or pelvic findings. 2. Nonacute findings as described above.
[2018-07-05 10:39] LABS: Blood Urea Nitrogen 26 mg/dL (7-18); Creatinine,Serum 1.09 mg/dL (0.55-1.02); Estimated Glomerular Filt Rate 48 ml/min (>60); GFR (African American) 58 ML/MIN (>60)
[2018-07-06 10:22] LABS: CEA 1.9 ng/mL (0.0-4.7)
== END ==
PROVIDERS: Family Provider Family Medicine; PCP Family Medicine; Visit Provider Obstetrics & Gynecology
DX: Z12.31 Encounter for screening mammogram for malignant neoplasm of breast; G89.3 Neoplasm related pain (acute) (chronic); R05 Cough; D49.59 Neoplasm of unspecified behavior of other genitourinary organ
CPT/HCPCS: 36415; 74176; 77067; 82378; 82565; 84520; 93005

== ENCOUNTER → 2018-07-08 11:06 | Outpatient (CLI) | payer MEDICARE, SELFPAY ==
[2018-07-08 11:09] LABS: Microscopic, Urine URINE MICROSCOPIC (MICROSCOPIC)
[2018-07-08 11:32] LABS: Basophils % 0.4 % (0.1-2.0); Eosinophils # 0.3 K/mm3 (0.0-0.4); Eosinophils % 3.6 % (0.1-12.0); Hematocrit 45.2 % (37.0-47.0); Hemoglobin 14.6 g/dL (12.2-16.2); Lymphocytes # 2.2 K/mm3 (0.7-4.5); Lymphocytes % 29.3 K/mm3 (10-50); Mean Corpuscular HGB Conc 32.2 g/dL (31.8-35.4); Mean Corpuscular Volume 89.9 fl (81-99); Mean Platelet Volume 8.2 fl (7.4-10.4); Monocytes # 0.6 K/mm3 (0.1-1.0); Monocytes % 7.8 % (1.7-9.3); Neutrophils # 4.4 K/mm3 (1.8-7.8); Platelet Count 146 K/mm3 (142-424); Red Blood Count 5.03 M/mm3 (4.20-5.40); Red Cell Distribution Width 14.2 % (11.5-17.5); White Blood Count 7.5 K/mm3 (4.8-10.8)
[2018-07-08 11:37] LABS: Appearance,Urine CLEAR (Clear); Bilirubin,Urine Negative (Negative); Blood, Urine 3+ (Negative); Color,Urine YELLOW (Yellow); Glucose,Urine (UA) Negative (Negative); Ketones,Urine Negative (Negative); Leukocyte Esterase,Urine 3+ (Negative); Nitrate,Urine Negative (Negative); Protein,Urine Negative (Negative); Specific Gravity, Urine <= 1.005 (1.005-1.030); Urobilinogen,Urine 0.2 EU/dl (0.2)
[2018-07-08 11:48] LABS: Bacteria,Urine 2+ /lpf
[2018-07-08 12:47] LABS: Alanine Aminotransferase 29 U/L (12-78); Albumin Level 3.2 gm/dL (3.4-5.0); Alkaline Phosphatase 72 U/L (46-116); Anion Gap 9.4 mEq/L (5-15); Aspartate Amino Transferase 28 U/L (15-37); Bilirubin,Total 1.1 mg/dL (0.2-1.0); Blood Urea Nitrogen 20 mg/dL (7-18); Carbon Dioxide 32 mmol/L (21.0-32.0); Chloride 103 mmol/L (98-107); Creatinine,Serum 1.12 mg/dL (0.55-1.02); Estimated Glomerular Filt Rate 47 ml/min (>60); GFR (African American) 56 ML/MIN (>60); Globulin 3.2 gm/dl (1.3-3.2); Glucose 107 mg/dL (74-106); Potassium 4.4 mmoL/L (3.5-5.1); Sodium 140 mmol/L (136-145); Total Protein,Serum 6.4 gm/dL (6.4-8.2)
== END ==
PROVIDERS: PCP Family Medicine; Visit Provider Obstetrics & Gynecology
DX: Z01.818 Encounter for other preprocedural examination (principal); D49.59 Neoplasm of unspecified behavior of other genitourinary organ; Z79.899 Other long term (current) drug therapy
CPT/HCPCS: 36415; 80053; 81001; 85025; 87086

== ENCOUNTER → 2019-05-06 09:05 | Outpatient (POV) | payer MEDICARE, SELFPAY | PROVIDERS: Visit Provider Dermatology | DX: Z00.00 Encounter for general adult medical examination without abnormal findings (principal) ==

== ENCOUNTER 2020-05-13 18:16 | Emergency (ER) | payer MEDICARE, SELFPAY ==
[2020-05-13 18:24] VITALS: BP 163/71; PULSE 55; RESP 18; O2SAT 95; BMI 23.5
--- NOTE | 2020-05-13 18:30 | XR_ITS ---
PROCEDURE: XR KNEE RT 2V CLINICAL INDICATION: pain Twisting injury with pain COMPARISON: CR KNEE3L KNEE-3 VIEWS-LT from 11/10/2015 FINDINGS: No fracture or dislocation. No lytic or blastic change. Other findings:There is generalized osteopenia with mild osteoarthritic change the lateral compartment. The exam is somewhat limited secondary to rotation on both the AP and lateral view. IMPRESSION: Mild osteoarthritis with osteopenia Dictated by: Maximiliano Díaz MD 05/14/2020 06:36 Maximiliano Díaz MD in [place] 05/14/2020 06:36
--- NOTE | 2020-05-13 18:30 | XR_ITS ---
PROCEDURE: XR FEMUR RT 2V CLINICAL INDICATION: pain Twisting injury with pain COMPARISON: CT ABDPELWO CT abdomen pelvis wo con from 07/05/2018 CR XR HIP RT 2-3V W/PELVIS from 05/13/2020 FINDINGS: There is a complete fracture involving the/basicervical portion of the right femoral neck. There is 18 mm lateral displacement of the distal fracture fragment with mild foreshortening. Femoral head is located. There is some heterotopic ossification along the greater trochanter. Surgical clips overlie the pubic region. The mid distal aspect of the femur show no acute finding. IMPRESSION: Mildly displaced right subcapital/transcervical femoral neck fracture Dictated by: Maximiliano Díaz MD 05/14/2020 06:39 Maximiliano Díaz MD in [facility] 05/14/2020 06:39
--- NOTE | 2020-05-13 18:30 | HMH.EDGENADL ---
ED Disposition Clinical Impression: Pathological fracture of right hip Qualifiers: Pathology associated with fracture: unspecified disease Encounter type: initial encounter Qualified Code(s): M84.451A - Pathological fracture, right femur, initial encounter for fracture Disposition: Xfer Other Condition on Discharge: Good Referrals: Abbie Graves MD [Primary Care Provider] - - Critical Care Critical Care Time: No Attestation: On 05/13/20, the high probability of a clinically significant, sudden or life threatening deterioration of the following system(s) required my full and direct attention, intervention and personal management. The time I documented below is in addition to time spent performing reported procedures but includes the following listed in this critical care notation. Medical Decision Making - Medical Records Medical records reviewed: Yes: I reviewed the patient's medical records. - Ted Inquiry Pt receiving controlled substance: No Vital Signs: 05/13/20 18:24 05/13/20 18:56 Pulse Rate [Radial] 55 L 55 L Respiratory Rate 18 Blood Pressure [Right Arm] 163/71 H 154/87 H Blood Pressure Mean [Right Arm] 101 109 Blood Pressure Source [Right Arm] Automatic Cuff Automatic Cuff Blood Pressure Position [Right Arm] Sitting Sitting 02 Sat by Pulse Oximetry 95 95 Oxygen Delivery Method Room Air Room Air Orders (Tests/Meds): ED MEDICATIONS Discontinued Medications Generic Name Dose Route Start Last Admin Trade Name Freq PRN Reason Stop Dose Admin Oxycodone HCl 5 mg 05/13/20 18:31 Oxyir 5mg Tablet PO 05/13/20 18:32 ONCE ONE Oxycodone/Acetaminophen 1 each 05/13/20 18:35 05/13/20 18:38 Percocet 5/325mg Tablet PO 05/13/20 18:36 1 each ONCE ONE Administration ORDERS Category Date Time Status Type and Screen Stat BBK 05/13/20 19:01 Ordered XR chest AP Stat Exams 05/13/20 18:50 Taken XR femur RT 2V Stat Exams 05/13/20 18:30 Taken XR hip RT 2-3V w/pelvis Stat Exams 05/13/20 18:30 Taken XR knee RT 2V Stat Exams 05/13/20 18:30 Taken C-Reactive Protein Stat Lab 05/13/20 19:01 Ordered Complete Blood Count Auto Diff Stat Lab 05/13/20 19:01 Ordered Comprehensive Metabolic Panel Stat Lab 05/13/20 19:01 Ordered Erythrocyte Sedimentation Rate Stat Lab 05/13/20 19:01 Ordered PT/PTT Stat Lab 05/13/20 19:01 Ordered Uric Acid Stat Lab 05/13/20 19:01 Ordered Medical Decision Narrative: This is an 85-year-old female with a history of vulvar cancer status post radiation treatments being transferred to your facility for likely pathologic right hip fracture. X-rays were obtained of the right hip, femur and knees demonstrating the above. She received 5 mg of oral oxycodone with good pain relief here. We will also obtain CBC, CMP, CRP, sed rate, uric acid. Although I do not see evidence of malignancy on plain films. I will speak to orthopedics for transfer to the [facility] as orthopedics at this facility is recommending higher level of care. Patient remained stable in my care. General Adult HPI - General Chief complaint: PAIN Stated complaint: R hip and knee pain Time Seen by Provider: 05/13/20 18:30 Mode of Arrival: Wheelchair Limitations: No Limitations Description of Symptoms (Recalled from ER Triage Doc. by RN): Right hip and knee pain x a couple of weeks. States she has vulva cancer and completed her radiation 3 months ago. States she recently had fractures in her back that have since healed. - History of Present Illness HPI narrative: This is a 85-year-old female with a history of vulvar cancer status post radiation therapy who presents with a two-week history of acute onset and worsening right hip, thigh and knee pain. This was atraumatic. Her pain is refractory to oxycodone at home and Tylenol. She saw an orthopedic physician at [facility] for this who advised her that she had arthritis in her right knee but then told her
--- NOTE | 2020-05-13 18:50 | XR_ITS ---
PROCEDURE: XR CHEST AP CLINICAL HISTORY: SOA COMPARISON: CT AGCHEST CT angio chest from 10/25/2017 CR CXR1VP XR chest portable from 03/10/2018 CR CXR2V XR chest 2V from 03/11/2018 CR CXR2V XR chest 2V from 06/25/2018 FINDINGS: Mild cardiomegaly without failure. Bipolar pacemaker is present from left subclavian approach. Minimal atelectatic change left lower lobe. Chronic changes with coarsening of the bronchovascular markings and thickening of the right minor fissure. Tortuosity/ectasia of the descending thoracic aorta. No acute bony abnormalities. IMPRESSION: Borderline cardiomegaly with mild left lower lobe atelectasis and chronic changes. Dictated by: Maximiliano Díaz MD 05/14/2020 06:35 Maximiliano Díaz MD in [place] 05/14/2020 06:35
--- NOTE | 2020-05-13 18:54 | PC.NURSE ---
Dr Young paged.
--- NOTE | 2020-05-13 18:55 | PC.NURSE ---
Dr Young returned call. speaking with [facility] [place] at this time.
[2020-05-13 18:56] VITALS: BP 154/87; PULSE 55; O2SAT 95
--- NOTE | 2020-05-13 19:06 | PC.NURSE ---
dr. oneill denied pt. calling [facility] at this time.
--- NOTE | 2020-05-13 19:14 | PC.NURSE ---
on phone with dr. lowry
--- NOTE | 2020-05-13 19:20 | PC.NURSE ---
dr. lowry accepted pt to the er.
[2020-05-13 19:30] VITALS: BP 166/88; PULSE 60; RESP 18; O2SAT 93
[2020-05-13 19:31] LABS: Chloride 100 mmol/L (98-107)
[2020-05-13 19:32] LABS: Potassium 3.1 mmoL/L (3.5-5.1); Sodium 140 mmol/L (136-145)
[2020-05-13 19:34] LABS: Alanine Aminotransferase 16 U/L (12-78); Alkaline Phosphatase 83 U/L (38-126); Aspartate Amino Transferase 25 U/L (14-36); Bilirubin,Total 1.1 mg/dl (0.2-1.3); Blood Urea Nitrogen 19 mg/dl (7-17); Creatinine Clearance Estimated 45 mL/min (50-200); Estimated Glomerular Filt Rate 60 ml/min (>60); GFR (African American) 72 ML/MIN (>60)
[2020-05-13 19:35] LABS: Albumin Level 3.9 g/dl (3.5-5.0); Albumin/Globulin Ratio 1.1 (1.1-1.8); Anion Gap 14.1 mEq/L (5-15); Calcium 9.6 mg/dl (8.4-10.2); Carbon Dioxide 29 mmol/L (22.0-30.0); Globulin 3.4 g/dL (1.3-3.2); Glucose 168 mg/dl (74-100); Total Protein,Serum 7.3 g/dl (6.3-8.2)
[2020-05-13 19:53] LABS: Basophils % 0.3 % (0.1-2.0); Eosinophils # 0.1 K/mm3 (0.0-0.4); Eosinophils % 0.8 % (0.1-12.0); Hematocrit 41.1 % (37.0-47.0); Hemoglobin 13.8 g/dL (12.2-16.2); Lymphocytes # 0.9 K/mm3 (0.7-4.5); Lymphocytes % 12.5 % (10-50); Mean Corpuscular HGB Conc 33.5 g/dL (31.8-35.4); Mean Corpuscular Hemoglobin 31.3 pg (27.0-31.2); Mean Corpuscular Volume 93.3 fl (81-99); Mean Platelet Volume 8.1 fl (7.4-10.4); Monocytes # 0.6 K/mm3 (0.1-1.0); Monocytes % 7.8 % (1.7-9.3); Neutrophils # 5.8 K/mm3 (1.8-7.8); Neutrophils % 78.6 % (37.0-80.0); Platelet Count 182 K/mm3 (142-424); Red Blood Count 4.41 M/mm3 (4.20-5.40); Red Cell Distribution Width 14.1 % (11.5-17.5); White Blood Count 7.4 K/mm3 (4.8-10.8)
[2020-05-13 19:54] LABS: Activated Partial Thrombo Time 21.5 seconds (23.6-34.0); INR 1.08 (0.9-1.1); Uric Acid 7.2 mg/dl (2.5-6.2)
[2020-05-13 20:00] VITALS: BP 172/89; PULSE 68; RESP 18; O2SAT 99
[2020-05-13 20:18] LABS: Erythrocyte Sedimentation Rate 29 mm/hr (0-30)
[2020-05-13 20:30] VITALS: BP 192/85; PULSE 60; RESP 18; O2SAT 98
[2020-05-13 20:48] VITALS: BP 186/82; PULSE 64; RESP 16; TEMP 37; O2SAT 98
== END 2020-05-13 20:51 | disposition other institution (70) ==
PROVIDERS: Emergency Provider Physician Assistant; PCP Family Medicine
DX: M84.451A Pathological fracture, right femur, initial encounter for fracture (principal); C51.9 Malignant neoplasm of vulva, unspecified; I10 Essential (primary) hypertension; I48.20 Chronic atrial fibrillation, unspecified; I25.2 Old myocardial infarction; J45.909 Unspecified asthma, uncomplicated; Z86.73 Personal history of transient ischemic attack (TIA), and cerebral infarction without residual deficits; E03.9 Hypothyroidism, unspecified; E78.5 Hyperlipidemia, unspecified; Z95.0 Presence of cardiac pacemaker; Z88.0 Allergy status to penicillin; Z90.49 Acquired absence of other specified parts of digestive tract; Z90.710 Acquired absence of both cervix and uterus; Z79.899 Other long term (current) drug therapy
CPT/HCPCS: 71045; 73502; 73552; 73560; 80053; 84550; 85025; 85610; 85651; 85730; 86140; 96374; 99284

== ENCOUNTER 2020-07-22 13:25 | Emergency (ER) | payer MEDICARE, OTHER, SELFPAY ==
[2020-07-22 13:26] VITALS: BP 160/83; PULSE 55; RESP 25; TEMP 36.6; O2SAT 95; BMI 26.1
--- NOTE | 2020-07-22 13:40 | XR_ITS ---
PROCEDURE: XR CHEST 2V CLINICAL HISTORY: soa COMPARISON: CT AGCHEST CT angio chest from 10/25/2017 CR CXR2V XR chest 2V from 03/11/2018 CR CXR2V XR chest 2V from 06/25/2018 CR XR CHEST AP from 05/13/2020 FINDINGS: There is cardiomegaly without failure. Bipolar pacemaker is present from left subclavian approach. There is thickening of the right minor fissure laterally There are degenerative changes in the thoracic spine No acute bony abnormalities. IMPRESSION: Cardiomegaly with chronic changes. No change with no acute finding. Dictated by: Maximiliano Díaz MD 07/22/2020 14:36 Maximiliano Díaz MD in [facility] 07/22/2020 14:36
[2020-07-22 14:03] VITALS: PULSE 55; PULSE 58; O2SAT 94
[2020-07-22 14:06] LABS: Basophils % 0.4 % (0.1-2.0); Eosinophils # 0.1 K/mm3 (0.0-0.4); Eosinophils % 1.8 % (0.1-12.0); Hematocrit 37.7 % (37.0-47.0); Hemoglobin 11.4 g/dL (12.2-16.2); Lymphocytes # 1.1 K/mm3 (0.7-4.5); Lymphocytes % 20.8 % (10-50); Mean Corpuscular HGB Conc 30.4 g/dL (31.8-35.4); Mean Corpuscular Volume 92.4 fl (81-99); Mean Platelet Volume 8.5 fl (7.4-10.4); Monocytes # 0.4 K/mm3 (0.1-1.0); Monocytes % 7.5 % (1.7-9.3); Neutrophils # 3.8 K/mm3 (1.8-7.8); Neutrophils % 69.6 % (37.0-80.0); Platelet Count 158 K/mm3 (142-424); Red Blood Count 4.08 M/mm3 (4.20-5.40); Red Cell Distribution Width 14.1 % (11.5-17.5); White Blood Count 5.5 K/mm3 (4.8-10.8)
--- NOTE | 2020-07-22 14:18 | HMH.EDSOB ---
ED Disposition Clinical Impression: COPD with acute exacerbation Disposition: Home, Self-Care Condition on Discharge: Good Instructions: DI for Chronic Obstructive Pulmonary Disease Prescriptions: Doxycycline Hyclate [Doxycycline 100mg Capsule] 100 mg PO BID 7 Days #14 cap Prescription Printed predniSONE [Prednisone 50mg Tab] 50 mg PO DAILY #5 tab Prescription Printed Referrals: Abbie Graves MD [Primary Care Provider] - 3 days - Critical Care Critical Care Time: No Attestation: On 07/22/20, the high probability of a clinically significant, sudden or life threatening deterioration of the following system(s) required my full and direct attention, intervention and personal management. The time I documented below is in addition to time spent performing reported procedures but includes the following listed in this critical care notation. Medical Decision Making - Medical Records Medical records reviewed: Yes: I reviewed the patient's medical records. - Ted Inquiry Pt receiving controlled substance: No Vital Signs: 07/22/20 13:26 07/22/20 14:03 07/22/20 14:26 Temperature 98 F Temperature Source Oral Pulse Rate 58 L Pulse Rate [Right] 55 L 57 L Respiratory Rate 25 H 20 Blood Pressure [Right Arm] 160/83 H 188/103 H Blood Pressure Mean [Right Arm] 108 131 Blood Pressure Source [Right Arm] Automatic Cuff Blood Pressure Position [Right Arm] Sitting 02 Sat by Pulse Oximetry 95 94 L 94 L Oxygen Delivery Method Room Air Room Air - Lab Data Lab results reviewed: Yes: I reviewed the patient's lab results. Lab Results 07/22/20 13:48: WBC 5.5, RBC 4.08 L, Hgb 11.4 L, Hct 37.7, MCV 92.4, MCH 28.0, MCHC 30.4 L, RDW 14.1, Plt Count 158, MPV 8.5, Neut % (Auto) 69.6, Lymph % (Auto) 20.8, [place] % (Auto) 7.5, Eos % (Auto) 1.8, Baso % (Auto) 0.4, Neut # (Auto) 3.8, Lymph # (Auto) 1.1, [place] # (Auto) 0.4, Eos # (Auto) 0.1, Baso # (Auto) 0.0 07/22/20 13:48: Sodium 141, Potassium 4.0, Chloride 104, Carbon Dioxide 29, Anion Gap 12.0, BUN 18 H, Creatinine 0.80, Estimated Creat Clear 46, Estimated GFR 68, Est GFR ( Amer) 83, Glucose 113 H, Calcium 9.5 07/22/20 13:48: SARS-CoV-2 IgG Ab (Rapid) Positive A, SARS-CoV-2 IgM Ab (Rapid) Negative Result diagrams: 07/22/20 13:48 07/22/20 13:48 Orders (Tests/Meds): ED MEDICATIONS Discontinued Medications Generic Name Dose Route Start Last Admin Trade Name Freq PRN Reason Stop Dose Admin Albuterol/Ipratropium 3 ml 07/22/20 13:40 07/22/20 14:00 Albuterol/Ipratropium 3 Ml Neb IH 07/22/20 13:41 3 ml ONCE ONE Administration Methylprednisolone Sodium Succinate 125 mg 07/22/20 13:40 07/22/20 13:52 Methylprednisolone Sod Succ 125mg Vial IV 07/22/20 13:41 125 mg ONCE ONE Administration - Radiology Data #1 Image(s): Chest Image Reviewed: Yes I reviewed the patient's radiology results Preliminary Findings: No Infiltrates Seen No acute disease - ECG Data Tracing #1 EKG at 1431 shows a paced rhythm with a rate of 54. Expected wide QRS. No STEMI. EKG interpreted by me. Medical Decision Narrative: Patient initially audibly wheezing, much improved after Solu-Medrol and DuoNeb. No chest pain, hypoxia, very unlikely pulmonary embolus. She has had several symptoms before with her COPD exacerbations. She is afebrile, no leukocytosis and chest x-ray with no signs of pneumonia or pneumothorax. Her Covid IgG is positive, indicating previous infection, IgM negative. She is able to maintain oxygen saturations of 92% with ambulation. Discharged home to follow-up outpatient with primary care provider for reevaluation in 2 to 3 days. Suspect COPD exacerbation. Resp/SOB HPI - General Chief Complaint: Shortness of Breath/Dyspnea Stated Complaint: soa Time Seen by Provider: 07/22/20 14:19 Mode of Arrival: Wheelchair Limitations: No Limitations Description of Symptoms (Recalled from ER Triage Doc. by RN): Pt sent
[2020-07-22 14:26] VITALS: BP 188/103; PULSE 57; RESP 20; O2SAT 94
--- NOTE | 2020-07-22 14:31 | ECG_ITS ---
APPROVED REPORT Exam: Resting ECG HR:54 bpm ECG Measurements Heart Rate 54 AXES QRSd 168 QRS -53 QT 460 T 124 QTc 436 Conclusion Electronic ventricular pacemaker Electronically signed by : Chon Pop, 07/22/2020 21:33:50
[2020-07-22 14:55] LABS: Blood Urea Nitrogen 18 mg/dl (7-17); Calcium 9.5 mg/dl (8.4-10.2); Carbon Dioxide 29 mmol/L (22.0-30.0); Chloride 104 mmol/L (98-107); Creatinine Clearance Estimated 46 mL/min (50-200); Estimated Glomerular Filt Rate 68 ml/min (>60); GFR (African American) 83 ML/MIN (>60); Glucose 113 mg/dl (74-100); Sodium 141 mmol/L (136-145)
[2020-07-22 14:57] LABS: Coronavirus 19 IgG Antibody Positive (Negative); Coronavirus 19 IgM Antibody Negative (Negative)
[2020-07-22 15:16] VITALS: BP 197/99; PULSE 61; PULSE 87; RESP 18; TEMP 36.7; O2SAT 94; O2SAT 99
== END 2020-07-22 15:17 | disposition home or self-care (01) ==
PROVIDERS: Emergency Provider Emergency Medicine; PCP Family Medicine
DX: J44.1 Chronic obstructive pulmonary disease with (acute) exacerbation (principal); Z01.84 Encounter for antibody response examination; I10 Essential (primary) hypertension; I25.2 Old myocardial infarction; Z95.0 Presence of cardiac pacemaker; Z86.73 Personal history of transient ischemic attack (TIA), and cerebral infarction without residual deficits; E78.5 Hyperlipidemia, unspecified; I48.20 Chronic atrial fibrillation, unspecified; Z88.0 Allergy status to penicillin; Z79.899 Other long term (current) drug therapy
CPT/HCPCS: 71046; 80048; 85025; 86328; 93005; 96374; 99283

== ENCOUNTER 2020-09-21 11:50 | Emergency (ER) | payer MEDICARE, OTHER, SELFPAY ==
--- NOTE | 2020-09-21 11:55 | XR_ITS ---
PROCEDURE: XR CHEST 2V CLINICAL HISTORY: COUGH COMPARISON: CT AGCHEST CT angio chest from 10/25/2017 CR CXR2V XR chest 2V from 06/25/2018 CR XR CHEST AP from 05/13/2020 CR XR CHEST 2V from 07/22/2020 FINDINGS: Mild cardiomegaly without failure. Bipolar pacemaker is present from left subclavian approach. There is thickening of the right minor fissure. No lobar consolidation or collapse. No acute bony abnormalities. IMPRESSION: No change with no acute finding. Dictated by: Maximiliano Díaz MD 09/21/2020 12:30 Maximiliano Díaz MD in [place] 09/21/2020 12:30
[2020-09-21 12:20] VITALS: BP 148/75; PULSE 74; RESP 17; TEMP 36.6; O2SAT 98; BMI 26.6
--- NOTE | 2020-09-21 12:45 | HMH.EDUTC ---
[facility] Disposition Clinical Impression: Strep throat Disposition: Home, Self-Care Condition on Discharge: Good Instructions: Sore Throat, DI for Cough -- Adult Additional Instructions: *Monitor Temp, Over the counter Motrin or Tylenol as directed/as needed Tylenol every 4 hours and Motrin every 6 hours (as long as your family doctor has told you that you can take it) for fever or pain. and straight to ER if unable to lower temp less than 101.0 after medication given *Warm salt water gargles may help to soothe the throat *Throat Lozenges *Warm fluids like tea with honey may help to soothe the throat *Sleep elevated *Humidifier/Vaporizer *If you did not take Penicillin shot or was unable to, start taking antibiotic immediately and make sure that you take it for the FULL length of time although you should start to feel better in 24-48 hours *change toothbrush and toothpaste 24-48 hours after starting to take antibiotics so you do not reinfect yourself Monitor Temp. Tylenol and/or Ibuprofen as needed. ER if fever is no less than 101 despite alternating Tylenol and Ibuprofen * Encourage fluids, water, Gatorade, powerade, pedialyte if /toddler/or child *Cold fluids, popsicles and ice cream may feel good on his throat Follow up IMMEDIATELY for new or worsening symptoms or no Noticeable improvement over the next 48-72 hours. 911 for difficulty breathing or swallowing Straight to the ER if any worsening of shortness of breath or life threatening symptoms You were tested for today for COVID19 your test result should be back in the next 24-48 hours, you may call to the [facility] to see if your test results are back in the next 48 hours [phone] [facility] hours are 9am-9pm You was given a handout with instructions for Self Quarantine and Self isolation for while you wait on test results and what to do if they are positive If you are positive the Health Dept will be contacting you also Prescriptions: clindamycin HCL [Clindamycin HCl] 300 mg PO TID 10 Days #30 cap Transmission Status: Pending to [facility] Referrals: Abbie Graves MD [Primary Care Provider] - As needed Time of Disposition: 13:04 Medical Decision Making - Ted Inquiry Pt receiving controlled substance: No Ted was queried for this patient: No Vital Signs: 09/21/20 12:20 Temperature 97.8 F Temperature Source Oral Pulse Rate [Right Brachial] 74 Respiratory Rate 17 Blood Pressure [Right Arm] 148/75 H Blood Pressure Mean [Right Arm] 99 Blood Pressure Source [Right Arm] Automatic Cuff Blood Pressure Position [Right Arm] Sitting 02 Sat by Pulse Oximetry 98 Oxygen Delivery Method Room Air Orders (Tests/Meds): ORDERS Category Date Time Status Covid-19 Nasal PCR ([facility]) Routine Lab 09/21/20 12:45 Ordered - Radiology Data #1 Image(s): Chest Image Reviewed: Yes I have reviewed radiologist's interpretation No change with no acute finding. Medical Decision Narrative: Patient allergic to multiple medications Discussed with pharmacy and patient has taken Clindamycin before without complications or reactions Patient positive for Strep Spoke with Nenita Mena from Dr Saez office in [place] and informed her of positive Strep test and plan to treat with Clinda and she agreed Patient to follow up with PCP if any worsening of symptoms [facility] HPI - General Stated complaint: rg jordan referal for cxr Time Seen by Provider: 09/21/20 12:45 Mode of Arrival: Ambulatory Source of Information: Patient Limitations: No Limitations Description of Symptoms (Recalled from Triage Doc. by RN): PATIENT C/O COUGH AND CONGESTION SINCE YESTERDAY. REPORTS SHE WAS REFERRED HERE BY PCP FOR CHEST X-RAY HEENT Symptoms (Recalled from RN notes): No Resp Symptoms (Recalled from RN notes): No Skin Symptoms (Recalled from RN notes): No MS Symptoms (Recalled from RN notes): No Functional Status (Recalled from RN notes): WNL - History of Present Illness Provid
[2020-09-21 13:24] VITALS: BP 148/75; PULSE 74; RESP 17; TEMP 36.6; O2SAT 98
[2020-09-21 21:07] LABS: UTC Strep Screen (Rapid) Positive (Negative)
== END 2020-09-21 13:25 | disposition home or self-care (01) ==
PROVIDERS: Emergency Provider Nurse Practitioner; PCP Family Medicine
DX: J02.0 Streptococcal pharyngitis (principal); Z20.822 Contact with and (suspected) exposure to COVID-19; I48.91 Unspecified atrial fibrillation; I10 Essential (primary) hypertension; E78.5 Hyperlipidemia, unspecified; I25.2 Old myocardial infarction; J45.909 Unspecified asthma, uncomplicated; Z79.899 Other long term (current) drug therapy
CPT/HCPCS: G0463; 71046; 87880; 99202; U0003